=== PATIENT | male | born 1965 | race Hispanic/Latino ===

== ENCOUNTER 2020-06-13 09:26 | Emergency (ER) | payer BC, SELFPAY ==
--- NOTE | 2020-06-13 09:36 | ED.BACK ---
HPI - Back Pain/Injury General Chief Complaint: Back Pain/Injury Stated Complaint: back pain Source: patient Mode of arrival: ambulatory Limitations: no limitations History of Present Illness HPI Narrative: Patient is a 55-year-old male who presents complaining of lower back pain. Patient has a history of low back pain. He denies known injury. Reports awaking like this this a.m. He denies all other complaints. He denies loss of bowel or bladder control, numbness or tingling. He denies all other complaints. He reports pain of 8/10. He reports taking 600 mg of ibuprofen with little relief. MD elicited complaint: back pain Related Data Home Medications Medication Instructions Recorded Confirmed valsartan 80 mg PO DAILY 06/13/20 06/13/20 Allergies Allergy/AdvReac Type Severity Reaction Status Date / Time No Known Allergies Allergy Verified 06/13/20 09:32 Review of Systems Review of Systems: Narrative: CONSTITUTIONAL: Denies fever, chills, or sweats. EYES: Denies visual changes, redness, or discharge. ENT: Denies rhinorrhea, congestion, sore throat, or otalgia. CARDIOVASCULAR: Denies chest pain, palpitations, or edema. RESPIRATORY: Denies cough or dyspnea. GASTROINTESTINAL: Denies abdominal pain, nausea, vomiting, or diarrhea. GENITOURINARY: Denies dysuria or hematuria. SKIN: Denies rash or itching. MUSCULOSKELETAL: Reports low back pain that radiates to right leg NEUROLOGIC: Denies headache, numbness, dizziness, or weakness. PSYCHIATRIC: Denies anxiety or depression. [facility] Past Medical History Medical History (Updated 06/13/20 @ 09:49 by SURESH Salguero) High cholesterol Social History Social History (Updated 06/13/20 @ 09:41 by SURESH Salguero) Smoking status: Never smoker Alcohol intake: never Substance use: never Living arrangements: with family Occupation/Education: occupation Exam Narrative: Exam Narrative: GENERAL: Well-appearing, well-nourished, and in no acute distress. HEAD: Normocephalic, atraumatic. ENT: Mucous membranes pink and moist. CHEST: No respiratory distress. EXTREMITIES: Normal range of motion. No edema. SKIN: Warm, dry, no rash. NEURO: No focal deficits. Alert and oriented x3. Gait steady. PSYCH: Normal affect. No signs of depression or anxiety. MDM - Back Pain/Injury MDM Narrative Medical decision making narrative: Patient likely has lumbar radiculopathy as well as sciatica. Patient has a history in the past. Patient to be given Medrol Dosepak, Flexeril and ibuprofen upon discharge. Patient reports his PCP prescribes same. Patient is stable for discharge to home with outpatient follow-up as directed. Differential Diagnosis Differential diagnosis: Likely lumbar radiculopathy, sciatica, strain of lumbar region and discitis Critical Care Time Critical Care Time Critical Care Time: No Discharge Plan Discharge Clinical Impression: Lumbar radiculopathy Sciatica Qualifiers: Laterality: right Qualified Code(s): M54.31 - Sciatica, right side Patient Disposition: Home, Self-Care Condition: Stable Instructions: Antibiotic Form Prescriptions: New methylprednisolone [Medrol (Jaguar)] 4 mg tablets,dose pack See Rx Instructions .ROUTE .COMPLEX Qty: 21 RF: 0 cyclobenzaprine 10 mg tablet 10 mg PO TID PRN (Reason: muscle spasm) Qty: 20 RF: 0 ibuprofen 800 mg tablet 800 mg PO TID PRN (Reason: pain) Qty: 20 RF: 0 No Action valsartan 80 mg tablet 80 mg PO DAILY RF: 0 Follow-up/Referrals: Balwinder,Abdoulaye Warner PA-C [Primary Care Provider] - Time of Disposition: 09:51
[2020-06-13 09:39] VITALS: BP 168/94; PULSE 75; RESP 19; TEMP 36.8; O2SAT 99
== END 2020-06-13 09:55 | disposition home or self-care (01) ==
PROVIDERS: Emergency Provider Nurse Practitioner; PCP Physician Assistant
DX: M54.16 Radiculopathy, lumbar region (principal); M54.31 Sciatica, right side; E78.00 Pure hypercholesterolemia, unspecified
CPT/HCPCS: 99213; G0463

== ENCOUNTER 2022-01-11 19:45 | Observation (INO) | payer BC, SELFPAY ==
[2022-01-11] VITALS (21 sets, daily range): BP systolic 102–153; BP diastolic 81–106; PULSE 74–214; RESP 12–22; TEMP 36.4; O2SAT 97–100
--- NOTE | ~2022-01-11 | XR_ITS ---
EXAMINATION: XR chest 1V portable Exam Date/Time: 01/11/2022 21:05 CDT HISTORY: chest pain, HIGH PULSE RATE, NO LUNG HX, NO CARDIAC HX Comparison: 03/28/2011. RESULT: Lines, tubes, and devices: None. Lungs and pleura: Slightly decreased volumes with crowding. No focal consolidation or overt pulmonar y edema. Cardiomediastinal silhouette: Stable cardiomediastinal silhouette. Other: No acute osseous or upper abdominal finding. IMPRESSION: No acute cardiopulmonary process. Reviewed, dictated and finalized at location K.
--- NOTE | 2022-01-11 20:18 | ECG_ITS ---
Measurements Intervals [place] Rate: 212 P: SC: 0 QRS: -55 QRSD: 282 T: 0 QT: 308 QTc: 579 Interpretive Statements Wide complex tachycardia, probably ventricular tachycardia NO PREVIOUS ECG AVAILABLE FOR COMPARISON Electronically Signed On 01-12-2022 12:39:32 CDT by Crissy Newell M.D.
[2022-01-11] MEDS: ASPIRIN 81 MG CHEWABLE TABLET 324 MG PO (20:45)
[2022-01-11] MEDS: AMIODARONE 150 MG/D5W 100 ML 150 MG/100 ML BAG 600 MG IV CONT (20:46)
--- NOTE | 2022-01-11 20:48 | ED.GENADULT ---
HPI - General Adult General Chief complaint: Chest Pain Stated complaint: chest pain Time Seen by Provider: 01/11/22 20:34 History of Present Illness HPI narrative: 56-year-old male presenting to the emergency department for evaluation of rapid heart rate. Patient states at about 630 he had onset some chest pressure, rapid heart rate and did have some heartburn . He states is states that he has no current chest pain. States the chest pressure is resolved. Patient does not feel he has a rapid heart rate at this time. Patient's only complaint is that he feels tired. Upon arrival to triage patient's heart rate was 214 with a wide-complex tachycardia. Patient denies any prior cardiac history. Patient does have history of high cholesterol and does take valsartan. Patient states he has no prior history of NM but did have a stress test a bunch years ago . Patient states that he does have intermittent periods where he feels his heart is racing but states that it usually resolves on its own after short period of time. Patient has never been diagnosed with any underlying arrhythmias. Related Data Home Medications Medication Instructions Recorded Confirmed valsartan 80 mg tablet 80 mg PO DAILY 06/13/20 01/12/22 aspirin 81 mg chewable tablet 81 mg PO DAILY 01/12/22 01/12/22 dexlansoprazole 60 mg 1 cap PO DAILY 01/12/22 01/12/22 capsule,biphase delayed release (Dexilant) famotidine 40 mg tablet 1 tablet PO DAILY 01/12/22 01/12/22 Allergies Allergy/AdvReac Type Severity Reaction Status Date / Time No Known Allergies Allergy Verified 06/13/20 09:32 Review of Systems Review of Systems: CONSTITUTIONAL: See HPI EYES: Denies visual changes, redness, or discharge. ENT: Denies rhinorrhea, congestion, sore throat, or otalgia. CARDIOVASCULAR: See HPI RESPIRATORY: Denies cough or dyspnea. GASTROINTESTINAL: Denies abdominal pain, nausea, vomiting, or diarrhea. GENITOURINARY: Denies dysuria or hematuria. SKIN: Denies rash or itching. MUSCULOSKELETAL: Denies back pain, joint pain, or myalgia. NEUROLOGIC: Denies headache, numbness, or weakness. [facility] Past Medical History Medical History (Updated 01/12/22 @ 01:20 by Hannah Vasques APRN) High cholesterol Hypertension Family History Family History (Updated 01/12/22 @ 05:04 by Sofya Barker RN) Sibling Diabetes mellitus Lupus Heart disease Social History Social History (Updated 06/13/20 @ 09:41 by Bing Elizabeth, [facility]) Smoking status: Never smoker Alcohol intake: current Drinks per week: 2 Substance use: never Spiritual care concerns: No Exam Narrative: APPEARANCE: Well appearing, no pain, no distress, well-nourished. HEAD: normocephalic, atraumatic. EYES: PERRLA/EOMI, conjunctivae clear. NOSE: Normal no drainage NECK: Supple. No adenopathy, no masses. RESPIRATORY: Airway patent, respirations nonlabored. Clear to auscultation bilaterally, no rales, rhonchi, wheezing. CARDIOVASCULAR: Wide-complex tachycardia, chest pressure ABDOMINAL: Soft, nontender, nondistended, normal bowel sounds MUSCULOSKELETAL: Moves all extremities. Strength/ROM intact, No edema, No calf tenderness. NEURO: Alert. Cranial nerves II through XII intact. Grossly intact SKIN: Warm, dry. Normal Color Course Course Emergency Course: Patient has a wide-complex tachycardia with a heart rate of approximately 214. Patient's blood pressure is stable 130/83. Patient is alert and oriented. Starting amiodarone. On patient's second dose of amiodarone patient did convert back to normal sinus rhythm. Patient denies any complaints at this time. Patient states he was having some mild chest pressure but states the chest pressure has resolved. Repeat EKG shows normal sinus rhythm with no ST changes. Case was discussed with cardiology. Cardiology recommended starting the patient on dose of metoprolol. Patient was also treated with Lovenox. Case was discussed with th
[2022-01-11] MEDS: SODIUM CHLORIDE 0.9% IV 1,000 ML 999 ML IV CONT (20:49)
[2022-01-11] MEDS: AMIODARONE 360 MG/D5W 200 ML 360 MG/200 ML BAG 33.33 MG IV CONT (20:55)
[2022-01-11 21:02] LABS: Basophils Percent Auto 0.5 % (0.2-1.2); Eosinophils Absolute Auto 0.2 K/mm3 (0-0.3); Eosinophils Percent Auto 2.8 % (0-4.4); Hemoglobin 15.5 g/dL (14.0-18.0); Immature Granulocyte Absolute 0.03 K/mm3 (0.00-0.031); Immature Granulocyte Percent A 0.4 % (0-0.5); Lymphocytes Absolute Auto 3.47 K/mm3 (0.9-3.2); Lymphocytes Percent Auto 41.6 % (18.3-44.2); Mean Corpuscular Hemoglobin 31.5 pg (26-34); Mean Corpuscular Volume 95.5 fl (80-100); Mean Platelet Volume 9.4 fl (7.4-10.4); Monocytes Absolute Auto 0.9 K/mm3 (0.1-0.6); Monocytes Percent Auto 10.2 % (2.6-8.5); Neutrophils Absolute Auto 3.7 K/mm3 (1.3-6.7); Neutrophils Percent Auto 44.5 % (45.5-73.1); Platelet Count Result 195 k/mm3 (150-375); Red Blood Count 4.92 M/mm3 (4.6-6.20); Red Cell Distribution Width 13.5 % (11.5-14.5); White Blood Count 8.4 K/mm3 (4.5-10.0)
[2022-01-11 21:18] LABS: Alanine Aminotransferase 69 U/L (6-50); Albumin Level 4.8 g/dL (3.5-5.1); Alkaline Phosphatase 132 U/L (38-126); Anion Gap 9 mmol/L (8-16); Aspartate Amino Transferase 58 U/L (17-59); Bilirubin,Total 0.5 mg/dL (0.2-1.3); Blood Urea Nitrogen 19 mg/dL (9-20); Calcium 9.7 mg/dL (8.4-10.2); Carbon Dioxide 27 mmol/L (22-30); Chloride 107 mmol/L (98-107); Estimated CRCL calculation 110 ml/min; Estimated Glomerular Filt Rate > 60; Glucose 122 mg/dL (65-110); INR 1.1; Lipase 79 U/L (23-300); Partial Thromboplastin Time 31.2 SECONDS (22.3-36.8); Potassium 3.5 mmol/L (3.4-5.0); Prothrombin Time 13.3 Seconds (11.1-14.7); Sodium 143 mmol/L (137-145)
[2022-01-11 21:33] LABS: Troponin I 0.063 ng/mL (0.000-0.034)
--- NOTE | 2022-01-11 21:43 | ECG_ITS ---
Measurements Intervals [place] Rate: 96 P: 30 PA: 178 QRS: -9 QRSD: 108 T: 27 QT: 353 QTc: 447 Interpretive Statements SINUS RHYTHM COMPARED TO ECG 01/11/2022 20:29:10 SINUS RHYTHM HAS BEEN RESTORED Electronically Signed On 01-12-2022 12:40:07 CDT by Crissy Newell M.D.
[2022-01-11 22:08] LABS: SARS-CoV-2 RNA PCR Negative
[2022-01-11] MEDS: ENOXAPARIN 120 MG/0.8 ML SYRINGE 109 MG SUB-Q (22:09)
[2022-01-11] MEDS: SODIUM CHLORIDE 0.9% IV 1,000 ML 125 ML IV CONT (22:12)
[2022-01-11 22:49] LABS: Amphetamine Screen Urine Negative (Negative); Barbiturate Screen Urine Negative (Negative); Benzodiazepines Screen Urine Negative (Negative); Cannabinoid Screen Urine Negative (Negative); Cocaine Screen Urine Negative (Negative); Methadone Screen Urine Negative (Negative); Opiate Screen Urine Negative (Negative); Phencyclidine Screen Urine Negative (Negative)
[2022-01-12] VITALS (43 sets, daily range): BP systolic 118–174; BP diastolic 71–90; PULSE 54–79; RESP 11–22; TEMP 36.2–36.7; O2SAT 93–100; BMI 33.3
--- NOTE | 2022-01-12 | ECHO_ITS ---
Patient Info Name: Solo Groves Age: 56 years : 1965 Gender: Male Ht: 71 in Wt: 239 lbs BSA: 2.36 m2 HR: 60 bpm BP: 174 / 89 mmHg Heart Rhythm: Sinus Rhythm Technical Quality: Fair Exam Date: 01/12/2022 11:30 AM Exam Location: [facility]monary Exam Room: 203 Patient Status: Inpatient Admit Date: 01/11/2022 Staff Ordering Physician: Hannah Vasques APRN Engine Designer: Laquita Robin RDCS Attending Provider: Eugenia Ivory MD Referring Physician: Caprice CARL; Exam Type: CA echo dop color flow w con Study Info Indications - wide comlplex tachy chest discomfort Complete two-dimensional, color flow and Doppler transthoracic echocardiogram is performed with contrast to opacify the left ventricle and to improve the deliniation of the left ventricle endocardial borders. Contrast/Agitated Saline Contrast/Ag. Saline: Definity Amount: 2.00 ml Administered By: Laquita Robin [facility] Existing IV Access: Yes IV Access Condition: patent with no signs of infiltration Summary 1. Normal left ventricular size and thickness. Left ventricular function of the lower limit of normal, measured ejection fraction 59%, visually 50-55%. Diastolic dysfunction is present. No segmental wall motion abnormalities. 2. Left atrial chamber dimension is mildly enlarged. 3. No pulmonary hypertension, estimated pulmonary arterial systolic pressure is 32 mmHg. 4. No significant valve disease. 5. Normal sinus rhythm. Left Ventricle Left ventricular chamber dimension is normal. Left ventricular systolic function is hyperdynamic, estimated at 50-55%. There is no increased left ventricular wall thickness. Left ventricular septal wall motion is normal. The left ventricular diastolic function is grade II diastolic dysfunction. Right Ventricle Right ventricular chamber dimension is normal. Right ventricular systolic function is normal. Left Atria Left atrial chamber dimension is mildly enlarged. Right Atria Right atrial chamber dimension is normal. Aortic Valve The aortic valve is trileaflet. There is no aortic valve sclerosis. There is no aortic valve stenosis. There is no aortic valve regurgitation. Pulmonic Valve The pulmonic valve is normal. There is no pulmonic valve stenosis. There is no pulmonic regurgitation. Mitral Valve The mitral valve has normal leaflets. There is no mitral valve stenosis. There is no mitral valve regurgitation. Tricuspid Valve The tricuspid valve leaflets are normal. There is no significant tricuspid valve stenosis. There is trace tricuspid valve regurgitation. No pulmonary hypertension, estimated pulmonary arterial systolic pressure is 32 mmHg. Pericardium/Pleural The pericardium appears normal. There is no pericardial effusion. Inferior Vena Cava Normal inferior vena cava with >50% collapse upon inspiration consistent with Empty right atrial pressure, 10 mmHg. Aorta The aortic root size at the sinus of Valsalva is normal. The prox ascending aorta size is normal. Left Ventricular Outflow Tract Name Value Normal LVOT 2D LVOT Diameter 2.10 cm LVOT Dopple
[2022-01-12 01:03] LABS: Troponin I 0.374 ng/mL (0.000-0.034)
--- NOTE | 2022-01-12 01:07 | PM.IMHP ---
H&P: HPI History of Present Illness Date/Time: 01/12/22 01:07 Chief Complaint: Chest pain Narrative: Mr. Groves is a 56-year-old gentleman who presented emergency room with complaints of chest discomfort. Patient states that at after eating dinner at 06:00 o'clock this evening he began feeling like he had heartburn around 630. Patient states the heartburn felt like a pressure across his anterior chest that went to his left arm. Patient states he has experienced this previously and if he belches the pain will go away. Patient states that he belched multiple times without any relief and took Tums and he continued to have this chest discomfort. Patient denied any palpitations, lightheadedness, dizziness, shortness of breath, nausea, vomiting, ceasing copy or near syncopal episodes. Patient states that he did feel mildly diaphoretic with this chest discomfort. Patient denies any cardiac history of coronary artery disease or stent placement. Patient states that he has generally been healthy but does have a history of hypertension for which he takes valsartan and he states his blood pressures have been well controlled. Patient states he also has a history of GERD and he does take Pepcid which is normally very effective. Upon evaluation in emergency room patient was noted to have a wide complex tachycardia and was given an IV amiodarone bolus followed by drip. Patient subsequently converted to a normal sinus rhythm and is feeling significantly improved. Patient states that he has a known history of hypertension and he takes medication without any difficulty. Patient states he also has a history of GERD for which he takes Pepcid and this is typically very effective. Review of Systems Review of Systems: A 12 point review of systems was completed patient all pertinent positive and negative per HPI the remainder are unremarkable. [facility] Past Medical History Medical History (Updated 01/12/22 @ 01:20 by Hannah Vasques, [facility]) High cholesterol Hypertension Social History Social History (Updated 06/13/20 @ 09:41 by Bing Elizabeth, [employer]) Smoking status: Never smoker Alcohol intake: never Substance use: never Meds Home Medications and Allergies Home Medications Medication Instructions Recorded Confirmed Type cyclobenzaprine 10 mg tablet 10 mg PO TID PRN muscle spasm #20 06/13/20 Rx tabs ibuprofen 800 mg tablet 800 mg PO TID PRN pain #20 tabs 06/13/20 Rx methylprednisolone 4 mg tablets in See Rx Instructions PO .COMPLEX 06/13/20 Rx a dose pack ([facility] (Jaguar)) #21 ea valsartan 80 mg tablet 80 mg PO DAILY 06/13/20 06/13/20 History Allergies Allergy/AdvReac Type Severity Reaction Status Date / Time No Known Allergies Allergy Verified 06/13/20 09:32 Vital Signs Vital Signs - 24 hr 01/11/22 20:21 01/11/22 20:46 01/11/22 20:51 Temperature 36.4 C Pulse Rate 74 214 H 201 H Respiratory Rate 18 22 H Blood Pressure 130/83 125/106 H 108/81 Pulse Oximetry 100 100 Oxygen Delivery Room Air 01/11/22 20:55 01/11/22 20:58 01/11/22 20:58 Temperature Pulse Rate 191 H 191 H 190 H Respiratory Rate Blood Pressure 102/83 102/83 Pulse Oximetry Oxygen Delivery 01/11/22 20:58 01/11/22 21:03 01/11/22 21:44 Temperature Pulse Rate 105 H 99 Respiratory Rate 20 17 Blood Pressure 102/83 Pulse Oximetry 99 100 100 Oxygen Delivery Room Air 01/11/22 21:45 01/11/22 21:46 01/11/22 22:00 Temperature Pulse Rate 98 101 H 93 Respiratory Rate 16 15 15 Blood Pressure 126/86 Pulse Oximetry 100 100 98 Oxygen Delivery 01/11/22 22:01 01/11/22 22:15 01/11/22 22:17 Temperature Pulse Rate 93 100 97 Respiratory Rate 16 21 H 17 Blood Pressure 143/96 H 136/92 H Pulse Oximetry 98 99 Oxygen Delivery 01/11/22 22:45 01/11/22 22:46 01/11/22 23:00 Temperature Pulse Rate 78 86 78 Respiratory Rate 12 16 14 Blood Pressure 122/82 Pulse Oximetry 99 98 98 Oxygen
--- NOTE | 2022-01-12 02:07 | PC.NURSE ---
This nurse spoke to MD Noel and stated she would place an order for a new Amiodarone dosage for the pt once the pt's current Amiodarone drop was completed.
[2022-01-12] MEDS: AMIODARONE 360 MG/D5W 200 ML 360 MG/200 ML BAG 33.33 MG IV CONT (02:55)
--- NOTE | 2022-01-12 04:11 | ADMGEN ---
This patient, Solo Groves, was admitted to IMU Room 203-01. Patient/family oriented to hospital policies and general routines including ID bracelet, bed and alarms, visiting hours, pain management, procedures, bathroom and other care routines, personal items, smoking policy, room service/diet, and visiting hours. Information on how to activate the Rapid Response Team has been discussed. Patient/Family are encouraged to report perceived risks to care and to ask questions if they do not understand what they are told or what they should do.
[2022-01-12 05:04] LABS: Troponin I 0.752 ng/mL (0.000-0.034)
--- NOTE | 2022-01-12 05:32 | PCRCNOTE ---
Pt does not use CPAP at home and refuses one here
[2022-01-12] MEDS: SODIUM CHLORIDE 0.9% IV 1,000 ML 125 ML IV CONT ×2 (08:31→16:15)
--- NOTE | 2022-01-12 09:58 | PM.CNCAR ---
Assessment and Plan Assessment and plan (1) Wide-complex tachycardia: Code(s): I47.2 - Ventricular tachycardia Status: Acute Assessment and Plan: Patient presents with chest discomfort/heartburn and a wide complex tachycardia. Probably a type of ventricular tachycardia. Evaluate for cardiomyopathy; echo ordered. Evaluate for underlying coronary disease; cardiac catheterization today Continue amiodarone and metoprolol for now Likely will need an electrophysiology evaluation (2) Elevated troponin: Code(s): R77.8 - Other specified abnormalities of plasma proteins Status: Acute Assessment and Plan: Elevated troponins noted, no ischemic changes seen on follow-up EKG. Chest pain likely 2nd V Tach, but possibly started as an ischemic event May ischemic myocardial injury due to the ventricular tachycardia but will need to rule out underlying CAD. Does have risk factors for CAD with hypertension and hyperlipidemia (3) Hypertension: Code(s): I10 - Essential (primary) hypertension Status: Acute Assessment and Plan: Takes valsartan as an outpatient Add metoprolol (4) Hypercholesteremia: Code(s): E78.00 - Pure hypercholesterolemia, unspecified Status: Acute Assessment and Plan: Not on a statin present History of Present Illness History of Present Illness Consult date/time: 01/12/22 09:58 Reason For Visit: wide complex tachycardia Narrative: Solo Groves is a 56 y.o. male whom I was asked to see at the request of Dr. Richard Pisano for my advice and opinion regarding his white complex tachycardia, in consultation. The patient has a history of hypertension and hypercholesterolemia but no history of heart disease, palpitations, dizziness or syncope He has some heartburn, sometimes radiating to the left arm, and frequent burping at times related to meals and also psychological stress. 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 Last night after his dinner he had more intense heartburn, associated with feeling weak and sweaty. He tried some Tums with no improvement. He did not feel any palpitations or SOB. He is not dizzy or presyncopal. His son brought him to the emergency room and he was found be in a wide complex tachycardia, which appears to be a ventricular tachycardia, rate 212. He converted to sinus rhythm on amiodarone and has been feeling well since then. His troponins have gone up to 0.7. Brother has some type of heart disease. Review of Systems Constitutional: Constitutional: Denies fever(s) Cardiovascular: Cardiovascular: Reports chest pain, Denies pedal edema, Denies lightheadedness, Denies palpitations and Denies dyspnea Respiratory: Respiratory: Denies chest congestion and Denies dyspnea Gastrointestinal: Gastrointestinal: Denies abdominal pain, Denies hematochezia, Reports heartburn and Denies hematemesis Musculoskeletal: Musculoskeletal: Reports no additional musculoskeletal complaints Integumentary/Breasts: Skin/Breast: Reports system reviewed and no additional complaints, except as docu Neurologic: Reports system reviewed and no additional complaints, except as documented, Denies behavioral changes and Denies confusion Psychiatric: Psychiatric: Denies behavioral changes and Denies confusion PMFSH Past Medical History Medical History High cholesterol Hypertension Family History Family History Sibling Diabetes mellitus Lupus Heart disease Father Diabetes mellitus Parkinsons disease Dementia Mother Dementia Alzheimer's dz Social History Social History ([place]
[2022-01-12] MEDS: ASPIRIN 81 MG CHEWABLE TABLET PO (09:59)
[2022-01-12] MEDS: METOPROLOL TARTRATE 25 MG TABLET PO ×2 (10:39→20:31)
--- NOTE | 2022-01-12 10:55 | PM.IMPN ---
Progress Note: A&P Assessment and Plan (1) Wide-complex tachycardia: Code(s): I47.2 - Ventricular tachycardia Status: Acute Assessment and Plan: Patient presents with complaints of chest pressure radiating to the left arm. He states this is very similar to times he has GERD symptoms with the only difference being that the symptoms did not resolve with belching. In the emergency room, he was noted to have V-tach and received an amiodarone bolus followed by an amiodarone drip. Patient subsequently converted to normal sinus rhythm with no significant ST changes. Troponin climbed to 0.75. Cardiology consulted. Continue amiodarone drip. Plan is for heart catheterization later today. Echocardiogram has been ordered. Magnesium 2.0. Potassium was 3.5 yesterday and was not replaced Will check BMP today. (2) Elevated troponin: Code(s): R77.8 - Other specified abnormalities of plasma proteins Status: Acute Assessment and Plan: Troponin elevated to 0.75. Not unexpected given the V-tach with rate this is 212. Workup as mentioned above. Continue aspirin and Lopressor. (3) Hypertension: Code(s): I10 - Essential (primary) hypertension Status: Acute Assessment and Plan: Blood pressure well controlled overnight. Blood pressure was elevated this morning prior to the metoprolol. Will continue to monitor for now. (4) GERD (gastroesophageal reflux disease): Code(s): K21.9 - Gastro-esophageal reflux disease without esophagitis Status: Acute Assessment and Plan: Chronic and stable. Will resume his famotidine and PPI. Plan DVT prophylaxis: SCDs Code status: Full Subjective Date/time seen: 01/12/22 10:55 Interval history: 56yo male with HTN here for chest pain and found to have VTach. Assuming care. Chart reviewed. Patient states he has longstanding symptoms of acid reflux that he describes as chest tightness sometimes radiating to left arm. Symptoms usually resolved with belching. He presented this time because the belching did not improve his symptoms. He feels well today. No history of coronary disease. No recent coronary workup including echo or stress test. No chest pain. He takes Pepcid and proton pump inhibitor daily. Exam Narrative: AF 97.4 152/86 67 16 100% ra Gen - NARD Chest - CTA bilaterally, nml RR CV - RRR S1/S2. Tele showing no significant dysrhythmias Abd - Soft, NT/ND, Positive BS Ext - No pedal edema Psych - Nml mood and affect Skin - Warm and dry Objective Data Vital Signs Vital Signs: Vital Signs - 24 hr 01/11/22 20:21 01/11/22 20:46 01/11/22 20:51 Temperature 97.6 F Pulse Rate 74 214 H 201 H Respiratory Rate 18 22 H Blood Pressure 130/83 125/106 H 108/81 Pulse Oximetry 100 100 Oxygen Delivery Room Air 01/11/22 20:55 01/11/22 20:58 01/11/22 20:58 Temperature Pulse Rate 191 H 191 H 190 H Respiratory Rate Blood Pressure 102/83 102/83 Pulse Oximetry Oxygen Delivery 01/11/22 20:58 01/11/22 21:03 01/11/22 21:44 Temperature Pulse Rate 105 H 99 Respiratory Rate 20 17 Blood Pressure 102/83 Pulse Oximetry 99 100 100 Oxygen Delivery Room Air 01/11/22 21:45 01/11/22 21:46 01/11/22 22:00 Temperature Pulse Rate 98 101 H 93 Respiratory Rate 16 15 15 Blood Pressure 126/86 Pulse Oximetry 100 100 98 Oxygen Delivery 01/11/22 22:01 01/11/22 22:15 01/11/22 22:17 Temperature Pulse Rate 93 100 97 Respiratory Rate 16 21 H 17 Blood Pressure 143/96 H 136/92 H Pulse Oximetry 98 99 Oxygen Delivery 01/11/22 22:45 01/11/22 22:46 01/11/22 23:00 Temperature Pulse Rate 78 86 78 Respiratory Rate 12 16 14 Blood Pressure 122/82 Pulse Oximetry 99 98 98 Oxygen Delivery 01/11/22 23:02 01/11/22 23:22 01/11/22 23:30 Temperature Pulse Rate 77 79 81 Respiratory Rate 14 20 17 Blood Pressure 153/99 H Pulse Oximetry 97 98 98 Oxy
[2022-01-12] MEDS: AMIODARONE 360 MG/D5W 200 ML 360 MG/200 ML BAG 16.67 MG IV CONT (11:16)
[2022-01-12 11:23] LABS: Anion Gap 5 mmol/L (8-16); Blood Urea Nitrogen 14 mg/dL (9-20); Calcium 8.5 mg/dL (8.4-10.2); Carbon Dioxide 24 mmol/L (22-30); Chloride 110 mmol/L (98-107); Estimated CRCL calculation 143 ml/min; Estimated Glomerular Filt Rate > 60; Glucose 114 mg/dL (65-110); Potassium 3.7 mmol/L (3.4-5.0); Sodium 139 mmol/L (137-145)
[2022-01-12] MEDS: PERFLUTREN LIPID MICROSPHERES 1.5 ML VIAL DILUTED TO 10 ML TOTAL VOLUME IV PUSH (11:47)
--- NOTE | 2022-01-12 11:48 | IVDEFINITY ---
Prior to administration of IV Definity the patient was educated on the risks and benefits of the imaging enhancing agent including potential adverse side effects. The patient verbalized understanding. Allergies were verified. No exclusion criteria were identified and at least one of the following inclusion criteria were met: 1) physician request, 2) patient technically difficult to image (per the [place] [employer] guidelines of two or more segments not discernable within the apical view), or 3) questionable left ventricular function. ?
--- NOTE | 2022-01-12 14:16 | WPDHPUPDATE1 ---
History and Physical Update Update Date/Time: 01/12/22 14:16 History and Physical has been reviewed, including an updated exam of the patient. There are NO changes in the patient's condition. Reviewed possible risks and complications with patient including breathing problems, bleeding problems, blood vessel problems, unanticipated surgery, allergic reactions, kidney problems, CVA, VT, and among others. Discussed possibility of stenting and possible need for DAPT. Discussed the possibility that if DAPT is interrupted stent thrombosis can occur resulting in heart attack and . Patient understands risks and desires to proceed. Risks, benefits, and alternatives have been discussed and questions answered. Patient agrees to proceed with procedure.
--- NOTE | 2022-01-12 14:17 | WPDMODSED ---
Moderate Sedation Note-Pt Data Patient Data Diagnosis: Wide complex tachycardia, probably atrial fibrillation, elevated troponins, and chest discomfort, rule out CAD. Present Complaint: Patient admitted with wide complex tachycardia and chest discomfort, converted to sinus rhythm with amiodarone. Echo shows EF 50-55%. Has elevated troponins. Procedure to be performed/Plan: Conscious sedation Left heart catheterization Possible PCI Allergies Allergy/AdvReac Type Severity Reaction Status Date / Time No Known Allergies Allergy Verified 06/13/20 09:32 Home Medications Medication Instructions Recorded Confirmed Type cyclobenzaprine 10 mg tablet 10 mg PO TID PRN muscle spasm #20 06/13/20 01/12/22 Rx tabs valsartan 80 mg tablet 80 mg PO DAILY 06/13/20 01/12/22 History aspirin 81 mg chewable tablet 81 mg PO DAILY 01/12/22 01/12/22 History dexlansoprazole 60 mg 1 cap PO DAILY 01/12/22 01/12/22 History capsule,biphase delayed release (Dexilant) famotidine 40 mg tablet 1 tablet PO DAILY 01/12/22 01/12/22 History Current Medications: Active Medications Aspirin (Aspirin 81 Mg Chewable Tablet) 81 mg PO DAILY@0800 [facility] Last Admin: 01/12/22 09:59 Dose: 81 mg Famotidine (Famotidine 20 Mg Tablet) 40 mg PO DAILY [facility] Sodium Chloride (Normal Saline Iv) 1,000 mls @ 125 mls/hr IV CONT .Q8H [facility] Last Admin: 01/12/22 08:31 Dose: 125 mls/hr Sodium Chloride (Normal Saline Iv) 500 mls @ 100 mls/hr IV CONT .Q5H [facility] Last Admin: 01/12/22 10:38 Dose: Not Given Sodium Chloride (Normal Saline Iv) 500 mls @ 100 mls/hr IV CONT .Q5H [facility] Last Admin: 01/12/22 10:38 Dose: Not Given Amiodarone HCl/Dextrose (Nexterone 360 Mg/D5w 200 Ml) 360 mg in 200 mls @ 16.667 mls/hr IV CONT .Q12H [facility] Last Admin: 01/12/22 11:16 Dose: 0.5 mg/min, 16.67 mls/hr Metoprolol Tartrate (Metoprolol Tartrate 25 Mg Tablet) 25 mg PO Q12HR [facility] Last Admin: 01/12/22 10:39 Dose: 25 mg Ondansetron HCl (Ondansetron Inj 4 Mg/2 Ml Vial) 4 mg IV PUSH Q4H PRN PRN Reason: Nausea Pantoprazole Sodium (Pantoprazole 40 Mg Tablet) 40 mg PO QAM [facility] Sedation/Anesthesia: No previous sedation/anesthesia problems (including family history). 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 Smoking status: Never smoker Alcohol intake: current Drinks per week: 2 Substance use: never Spiritual care concerns: No Mod Sed Physical Exam Physical Exam Pre Procedural Exam: Normal: Appearance, Eyes, Ears, Nose, Neck, Throat, Airway, Lungs, Heart Size, Heart Rate, Heart Rhythm, Neuro Exam, Abdomen, Extremities and Skin Hours since solid foods: 16 Hours since liquid intake: 16 Mallampati Classification: class III Internal Medicine - PN: Obj Da Vital Signs Vital Signs: Vital Signs - 24 hr 01/11/22 20:21 01/11/22 20:46 01/11/22 20:51 Temperature 97.6 F Pulse Rate 74 214 H 201 H Respiratory Rate 18 22 H Blood Pressure 130/83 125/106 H 108/81 Pulse Oximetry 100 100 Oxygen Delivery Room Air 01/11/22 20:55 01/11/22 20:58 01/11/22 20:58 Temperature Pulse Rate 191 H 191 H 190 H Respiratory Rate Blood Pressure 102/83 102/83 Pulse Oximetry Oxygen Delivery 01/11/22 20:58 01/11/22 21:03 01/11/22 21:44 Temperature Pulse Rate 105 H 99 Respiratory Rate 20 17 Blood Pressure 102/83 Pulse Oximetry 99 100 100 Oxygen Delivery Room Air 01/11/22 21:45 01/11/22 21:46 01/11/22
--- NOTE | 2022-01-12 14:59 | PM.OP ---
Procedure Note - Brief Procedure Note - Brief Date of procedure: 01/12/22 Pre-op diagnosis: wide complex tachycardia Sustained ventricular tachycardia Post-op diagnosis: Same Procedure performed: Conscious sedation Left heart catheterization Description of procedure: uneventful left heart catheterization Surgeon: Crissy Newell MD Complications: None Condition: Stable Disposition: Floor Findings: Normal coronary arteries Normal left ventricular function
--- NOTE | 2022-01-12 15:02 | W.PM.PROC2 ---
Procedure Note - Detailed Date of Procedure 01/12/22 Pre-op Diagnosis wide complex tachycardia, ventricular tachycardia Post-op Diagnosis Same Procedure Performed conscious sedation Left heart catheterization Surgeon Crissy Newell MD
--- NOTE | 2022-01-12 15:03 | WPDCARDPROC ---
Cardiac Cath Procedure Note Date of procedure:: 01/13/22 Performing physician:: Crissy Newell MD Indication:: wide complex tachycardia, ventricular tachycardia Brief clinical history:: 56-year-old male hypertension hyperlipidemia admitted with chest pressure wide complex tachycardia/ ventricular tachycardia which converted to sinus rhythm with amiodarone. Elevated troponins. Undergoing cardiac catheterization because of as suspicion of underlying CAD. Procedure Procedure performed:: Conscious sedation Left heart catheterization Selective coronary angiography Left ventriculography Angiography of the right common femoral artery Estimated blood loss:: 5 cc Procedure note:: Procedure: 1. Conscious sedation 2. Left heart catheterization 3. Selective Coronary angiography 4. Left ventriculography 5. Angiography right common femoral artery Site: Right femoral artery Catheters: 5 [place] arterial sheath, 5 [place] 4 cm right and left Neris catheters, 5 [place] pigtail catheter Conscious sedation: The patient has no known prior history of adverse affects of conscious sedation. Oropharynx was clear. The patient is deemed a good candidate for conscious sedation. Conscious sedation began at:1434 Conscious sedation ended at: 1450 Total conscious sedation time:16 min Medications:Versed 1 mg and fentanyl 50 mcg IVP The patient had continuous hemodynamic monitoring, and was also continuously monitored by: Ni Fulton RN The patient tolerated conscious sedation well. Detailed procedure: After informed consent the patient brought to the computer lab para professional and the right femoral area was prepped and draped in the usual fashion. After conscious sedation and local anesthesia the right femoral artery was punctured and cannulated with the arterial sheath. Selective Coronary angiography was performed with the coronary catheters in multiple projections. These were withdrawn. The pigtail catheter was advanced into the central circulation and left ventricle for pressure measurements and left ventriculography which was performed in the BETH projection. This was withdrawn. Later the arterial sheath was removed and hemostasis was obtained using local pressure. The patient tolerated the procedure well with no complications. Estimated blood loss was negligible. Findings:: Pressures: Post angiographic LV pressure was 130/ 18 mmHg and aorta was 140 / 80 mm Hg mmHg. Left coronary artery: The left main, Left anterior descending and circumflex vessels were widely patent and free of disease. Right coronary artery is a dominant right coronary artery was large and free of disease Left ventriculogram: Left ventriculography revealed normal left ventricular systolic function and no mitral regurgitation. EF 55-60% Conclusion:: Normal coronary arteries Normal left ventricular systolic, EF 55-60 % Assessment and Plan Assessment and plan (1) Wide-complex tachycardia: Code(s): I47.2 - Ventricular tachycardia Status: Acute Assessment and Plan: Refer to electrophysiology Continue metoprolol and amiodarone Plan I will review with the patient and refer to an paving bed maker. Additional Plan as above
[2022-01-12] MEDS: AMIODARONE HCL 200 MG TABLET 400 MG PO (17:49)
[2022-01-13] VITALS (11 sets, daily range): BP systolic 134–143; BP diastolic 78–87; PULSE 52–71; RESP 16–18; TEMP 36.1–36.6; O2SAT 96–99
--- NOTE | 2022-01-13 03:55 | PC.NURSE ---
Jovita from [facility] called IMU for pt update. No bed available at this time.
[2022-01-13 05:00] LABS: Hematocrit 39.5 % (42.0-52.0); Hemoglobin 13.1 g/dL (14.0-18.0); Mean Corpuscular HGB Conc 33.2 g/dl (32-36); Mean Corpuscular Hemoglobin 31.8 pg (26-34); Mean Corpuscular Volume 95.9 fl (80-100); Mean Platelet Volume 9.6 fl (7.4-10.4); Platelet Count Result 158 k/mm3 (150-375); Red Blood Count 4.12 M/mm3 (4.6-6.20); Red Cell Distribution Width 13.5 % (11.5-14.5); White Blood Count 5.7 K/mm3 (4.5-10.0)
[2022-01-13 05:12] LABS: Anion Gap 5 mmol/L (8-16); Blood Urea Nitrogen 11 mg/dL (9-20); Calcium 8.2 mg/dL (8.4-10.2); Carbon Dioxide 25 mmol/L (22-30); Chloride 108 mmol/L (98-107); Estimated CRCL calculation 143 ml/min; Estimated Glomerular Filt Rate > 60; Glucose 95 mg/dL (65-110); Magnesium 1.9 mg/dL (1.6-2.3); Potassium 3.5 mmol/L (3.4-5.0); Sodium 138 mmol/L (137-145)
[2022-01-13] MEDS: ACETAMINOPHEN 325 MG TABLET 650 MG PO (08:28)
[2022-01-13] MEDS: POTASSIUM CHLORIDE 20 MEQ TABLET 40 MEQ PO (08:28)
[2022-01-13] MEDS: MAGNESIUM SULF 2 GM/WATER 50ML 2 GM/50 ML BAG IVPB (08:29)
[2022-01-13] MEDS: AMIODARONE HCL 200 MG TABLET 400 MG PO (08:30)
[2022-01-13] MEDS: PANTOPRAZOLE 40 MG TABLET PO (08:30)
[2022-01-13] MEDS: METOPROLOL TARTRATE 25 MG TABLET PO (08:30)
[2022-01-13] MEDS: FAMOTIDINE 20 MG TABLET 40 MG PO (08:31)
[2022-01-13] MEDS: ASPIRIN 81 MG CHEWABLE TABLET PO (08:34)
--- NOTE | 2022-01-13 12:11 | PM.IMPN ---
Progress Note: A&P Assessment and Plan (1) Wide-complex tachycardia: Code(s): I47.2 - Ventricular tachycardia Status: Acute Assessment and Plan: Patient presents with complaints of chest pressure radiating to the left arm. He states this is very similar to times he has GERD symptoms with the only difference being that the symptoms did not resolve with belching. In the emergency room, he was noted to have V-tach and received an amiodarone bolus followed by an amiodarone drip. Patient subsequently converted to normal sinus rhythm with no significant ST changes. Troponin climbed to 0.75. Cardiology consulted. LHC showing no CAD. Echo showing EF 50-55% and Grade II diastolic dysfunction. He was changed to oral amiodarone. Magnesium 1.9. Potassium was 3.5 today so will replace again. (2) Elevated troponin: Code(s): R77.8 - Other specified abnormalities of plasma proteins Status: Acute Assessment and Plan: Troponin elevated to 0.75. Not unexpected given the V-tach with rate this is 212. Workup as mentioned above. Continue aspirin and Lopressor. (3) Hypertension: Code(s): I10 - Essential (primary) hypertension Status: Acute Assessment and Plan: Blood pressure remains well controlled. Will continue to monitor for now. (4) GERD (gastroesophageal reflux disease): Code(s): K21.9 - Gastro-esophageal reflux disease without esophagitis Status: Acute Assessment and Plan: Chronic and stable. Continue famotidine and PPI. Plan DVT prophylaxis: SCDs Code status: Full Subjective Date/time seen: 01/13/22 12:11 Interval history: 56yo male with HTN here for chest pain and found to have VTach. No problems overnight. Complains of right shoulder pain but this is chronic. Denies any chest pain, shortness of breath, lightheadedness or cough. Exam Narrative: AF 97.3 142/87 59 18 96% ra Gen - NARD Chest - CTA bilaterally, nml RR CV - RRR S1/S2. Tele showing no significant dysrhythmias Abd - Soft, NT/ND, Positive BS Ext - No pedal edema Psych - Nml mood and affect Skin - Warm and dry Objective Data Vital Signs Vital Signs: Vital Signs - 24 hr 01/12/22 15:15 01/12/22 15:30 01/12/22 15:45 Temperature Pulse Rate 56 L 56 L 55 L Respiratory Rate 14 16 11 L Blood Pressure 132/82 133/85 118/74 Pulse Oximetry 93 98 96 Oxygen Delivery Room Air Room Air Room Air 01/12/22 16:20 01/12/22 16:15 01/12/22 17:49 Temperature 97.1 F L Pulse Rate 57 L 58 L Respiratory Rate 16 Blood Pressure 139/90 Pulse Oximetry 99 Oxygen Delivery Room Air 01/12/22 14:00 01/12/22 18:00 01/12/22 19:51 Temperature 97.7 F Pulse Rate 66 59 L 61 Respiratory Rate 20 Blood Pressure 145/71 H Pulse Oximetry 99 Oxygen Delivery 01/12/22 20:01 01/12/22 20:31 01/12/22 20:00 Temperature Pulse Rate 68 57 L 60 Respiratory Rate Blood Pressure Pulse Oximetry 96 Oxygen Delivery Room Air 01/12/22 22:00 01/12/22 20:00 01/12/22 23:07 Temperature 98.0 F Pulse Rate 54 L 56 L Respiratory Rate 20 Blood Pressure 137/89 Pulse Oximetry 97 Oxygen Delivery Room Air 01/13/22 00:00 01/13/22 00:00 01/13/22 02:00 Temperature Pulse Rate 58 L 52 L Respiratory Rate Blood Pressure Pulse Oximetry Oxygen Delivery Room Air 01/13/22 04:00 01/13/22 04:00 01/13/22 04:00 Temperature 97.8 F Pulse Rate 56 L 57 L Respiratory Rate 18 Blood Pressure 134/78 Pulse Oximetry 97 Oxygen Delivery Room Air 01/13/22 06:00 01/13/22 08:30 01/13/22 08:30 Temperature Pulse Rate 56 L 59 L 59 L Respiratory Rate Blood Pressure Pulse Oximetry Oxygen Delivery 01/13/22 08:00 01/13/22 08:00 01/13/22 10:00 Temperature 97.3 F L Pulse Rate 57 L 59 L Respiratory Rate 18 Blood Pressure 142/87 H Pulse Oximetry 96 Oxygen Delivery Room Air 01/13/22 08:00 01/13/22
--- NOTE | 2022-01-13 15:35 | PM.PNCARD ---
Progress Note: A&P Assessment and Plan (1) Wide-complex tachycardia: Code(s): I47.2 - Ventricular tachycardia Status: Acute Assessment and Plan: Wide complex tachycardia which appears to be ventricular tachycardia, hemodynamically stable on admission. Patient noted intense chest pressure and heartburn but no palpitations. Has had heartburn before but this was worse. No evidence of CAD or dilated cardiomyopathy No recurrence on p.o. metoprolol and amiodarone Transferring to [facility] for their expert opinion (2) Elevated troponin: Code(s): R77.8 - Other specified abnormalities of plasma proteins Status: Acute Assessment and Plan: Elevated troponin and chest discomfort which appears to be due to the tachycardia. (3) Status post cardiac catheterization: Code(s): Z98.890 - Other specified postprocedural states Status: Acute Assessment and Plan: Reviewed post cath instructions with the patient. Okay to return to work on MondayJanuary 19. (4) Hypertension: Code(s): I10 - Essential (primary) hypertension Status: Acute Assessment and Plan: Controlled reasonably well, no longer on valsartan (5) Hypercholesteremia: Code(s): E78.00 - Pure hypercholesterolemia, unspecified Status: Acute (6) GERD (gastroesophageal reflux disease): Code(s): K21.9 - Gastro-esophageal reflux disease without esophagitis Status: Acute Subjective Date/time seen: 01/13/22 15:35 Interval history: 56-year-old male hypertension hyperlipidemia admitted with chest pressure wide complex tachycardia/ ventricular tachycardia which converted to sinus rhythm with amiodarone.? Had a stable blood pressure in the emergency room. Elevated troponins.? History of hypertension and hyperlipidemia. Cardiac catheterization showed normal coronary arteries and normal left ventricular function. Date of service 01/13/2022: Patient is feeling well. at the bedside. No chest pain, dizziness or palpitations. Telemetry shows sinus bradycardia. Yesterday I spoke to electrophysiology Department at [facility], discussed whether not the patient can be seen as an outpatient or an inpatient transfer is preferred. He has been on the waiting list and now has a bed available so will be transferring to [facility] today. Review of Systems Constitutional: Constitutional: Denies fever(s) Comments: Cardiac catheterization shows no hematoma or ecchymosis. Pedal pulses are intact. Cardiovascular: Cardiovascular: Denies chest pain, Denies pedal edema, Denies lightheadedness and Denies dyspnea Respiratory: Respiratory: Denies chest congestion and Denies dyspnea Gastrointestinal: Gastrointestinal: Denies abdominal pain and Denies hematochezia Musculoskeletal: Musculoskeletal: Reports no additional musculoskeletal complaints Integumentary/Breasts: Skin/Breast: Reports system reviewed and no additional complaints, except as docu Neurologic: Reports system reviewed and no additional complaints, except as documented, Denies behavioral changes and Denies confusion Psychiatric: Psychiatric: Denies behavioral changes and Denies confusion Exam Const: General: cooperative, healthy appearing and comfortable; No confusion Orientation/consciousness: oriented to person, patient oriented x3 and No confusion Resp: Effort & Inspection: normal respiratory effort Auscultation: clear to auscultation bilaterally Cardio: Rate: regular rate Rhythm: regular rhythm GI: Inspection: normal to inspection GI Palp: No abdominal tenderness Neuro: General: oriented to person, patient oriented x3 and No confusion Extrem: Right lower extremity: no edema Left lower extremity: no edema Psych: Appearance: grossly normal Mental Status: mental status grossly normal Objective Data Vital Signs Vital Signs: Vital Signs - 24 hr 01/12/22 15:45 01/12/22 16:20 01/12/22 16:15 Temperature
--- NOTE | 2022-01-13 17:26 | PM.TDS ---
Transfer Discharge Sum: Prov Provider Date of admission: 01/11/22 22:03 Primary care physician: Abdoulaye Britt, PA-C Admitting clinician: Eugenia Ivory MD Consults: 01/11/22 Consult to Physician Routine Comment: Consulting Provider: Crissy Newell Reason for consultation: Wide-complex tachycardia Has provider been notified: Yes DS: Admitting Diagnosis Discharge Date 01/13/22 Admitting Diagnosis Ventricular tachycardia. DS: Discharge Diagnosis Discharge Diagnosis (1) Wide-complex tachycardia: Code(s): I47.2 - Ventricular tachycardia Status: Acute Assessment and Plan: Patient presented with complaints of chest pressure radiating to the left arm. He states this is very similar to times he has GERD symptoms with the only difference being that the symptoms did not resolve with belching. In the emergency room, he was noted to have V-tach and received an amiodarone bolus followed by an amiodarone drip. Patient subsequently converted to normal sinus rhythm with no significant ST changes. Troponin climbed to 0.75. Cardiology consulted. LHC showing no CAD. Echo showing EF 50-55% and Grade II diastolic dysfunction. He was changed to oral amiodarone. Patient was transferred to a tertiary care hospital for further management. (2) Elevated troponin: Code(s): R77.8 - Other specified abnormalities of plasma proteins Status: Acute Assessment and Plan: Troponin elevated to 0.75. Not unexpected given the V-tach with rate this is 212. Workup as mentioned above. We continued aspirin and Lopressor. (3) Hypertension: Code(s): I10 - Essential (primary) hypertension Status: Acute Assessment and Plan: Blood pressure remained well controlled. (4) GERD (gastroesophageal reflux disease): Code(s): K21.9 - Gastro-esophageal reflux disease without esophagitis Status: Acute Assessment and Plan: Chronic and stable. We continued famotidine and PPI. Transfer Discharge Sum: Med Medications Active and Home Medications: Home Medications cyclobenzaprine 10 mg tablet 10 mg PO TID PRN muscle spasm #20 tabs 06/13/20 [Rx Confirmed 01/12/22] valsartan 80 mg tablet 80 mg PO DAILY 06/13/20 [History Confirmed 01/12/22] aspirin 81 mg chewable tablet 81 mg PO DAILY 01/12/22 [History Confirmed 01/12/22] dexlansoprazole 60 mg capsule,biphase delayed release (Dexilant) 1 cap PO DAILY 01/12/22 [History Confirmed 01/12/22] famotidine 40 mg tablet 1 tablet PO DAILY 01/12/22 [History Confirmed 01/12/22] Transfer Discharge Sum: Hosp Hospital Course Hospital course: Solo Groves is a 56yo male with HTN here for chest pain and found to have VTach. Please see H&P for details. Please see above for details of hospital course Time Spent with Patient Time attestation: Total time spent providing and/or coordinating transfer services: 32 minutes Total time spent: Greater than 30 minutes Exam Narrative: AF 97.3 142/87 59 18 96% ra Gen - NARD Chest - CTA bilaterally, nml RR CV - RRR S1/S2. Tele showing no significant dysrhythmias Abd - Soft, NT/ND, Positive BS Ext - No pedal edema Psych - Nml mood and affect Skin - Warm and dry DS: Data Data Completed and Pending Labs on day of discharge: Labs from last 24 hours 01/13/22 01/13/22 04:37 04:37 WBC 5.7 RBC 4.12 L Hgb 13.1 L Hct 39.5 L MCV 95.9 MCH 31.8 MCHC 33.2 RDW 13.5 Plt Count 158 MPV 9.6 Sodium 138 Potassium 3.5 Chloride 108 H Carbon Dioxide 25 Anion Gap 5 L BUN 11 Creatinine 0.60 L Estim Creat Clear Calc 143 Estimated GFR > 60 Glucose 95 Calcium 8.2 L Magnesium 1.9
== END 2022-01-13 16:29 | disposition short-term general hospital (02) ==
LOC: ANHED 22:03 → ANHIMU 01-12 08:03
PROVIDERS: Emergency Medicine; Internal Medicine Cardiovascular Disease; Nurse Practitioner Adult Health; Specialist; Admitting Provider Internal Medicine; Emergency Provider Emergency Medicine; PCP Physician Assistant; Visit Provider Internal Medicine
PROC: 4A023N7 Measurement of Cardiac Sampling and Pressure, Left Heart, Percutaneous Approach (ICD-10-PCS; CPT 93452; principal; 2022-01-12 12:30)
DX: I47.2 Ventricular tachycardia (principal); R77.8 Other specified abnormalities of plasma proteins; I10 Essential (primary) hypertension; E78.00 Pure hypercholesterolemia, unspecified; K21.9 Gastro-esophageal reflux disease without esophagitis; Z79.82 Long term (current) use of aspirin; Z20.822 Contact with and (suspected) exposure to COVID-19
CPT/HCPCS: 36415; 71045; 80048; 80053; 80307; 83690; 83735; 84443; 84484; 85025; 85027; 85610; 85730; 93005; 93458; 96361; 96365; 96372; 96375; 96376; 99285; A9270; C1760; C1887; C1894; C8929; C9803; G0269; G0378; J0282; J1644; J1650; J2250; J3010; J3475; J7030; J7040; Q9957; U0003; U0005

== ENCOUNTER 2023-07-02 09:19 | Emergency (ER) | payer BC, SELFPAY ==
[2023-07-02] VITALS (8 sets, daily range): BP systolic 137–173; BP diastolic 78–89; PULSE 70–78; RESP 14–20; TEMP 36.6–36.8; O2SAT 93–98
--- NOTE | ~2023-07-02 | CT_ITS ---
EXAMINATION: CTA chest PE protocol DATE: 07/02/2023 11:48 APPLICATION INFRASTRUCTURE ENGINEER INDICATION: Pneumonia. Hemoptysis. TECHNIQUE: Computed tomographic angiography (CTA) of the chest was performed with 100 mL Omnipaque-35 0 intravenous contrast. The dose-length product was 931.68 mGy-cm. Maximum intensity projection 3D-re constructions of the aorta and other arteries were constructed by the technologist on a separate work station. COMPARISON: Chest x-ray dated 07/02/2023. FINDINGS: No thoracic lymphadenopathy. Heart size normal. No significant pleural or pericardial effus ion. No large central pulmonary embolism. Evaluation of the peripheral pulmonary arteries limited by motion artifact and contrast bolus timing. No evidence for aortic aneurysm or dissection. Upper abdom en is unremarkable. There is dependent atelectasis. No focal airspace disease to suggest pneumonia. N o pneumothorax. No endobronchial lesions. No suspicious pulmonary nodules or masses. IMPRESSION: 1. No acute cardiopulmonary disease. Reviewed, dictated and finalized at location A. ICATION INFRASTRUCTURE ENGINEER
--- NOTE | ~2023-07-02 | XR_ITS ---
EXAMINATION: XR chest 2V 07/02/2023 10:23 INDICATION: Pneumonia PROCEDURE: 2 view chest COMPARISON: 01/11/2022 FINDINGS: The lungs are clear. The cardiomediastinal silhouette is within normal limits. There are no pleural effusions. There is no pneumothorax suspected. IMPRESSION: 1: NO ACUTE CARDIOPULMONARY DISEASE. Reviewed, dictated and finalized at location A. OGRAPHIC ENGINEER
--- NOTE | 2023-07-02 09:37 | ECG_ITS ---
Measurements Intervals [place] Rate: 72 P: 28 NV: 163 QRS: -17 QRSD: 121 T: 60 QT: 380 QTc: 416 Interpretive Statements SINUS RHYTHM NORMAL ELECTROCARDIOGRAM COMPARED TO ECG 01/11/2022 21:07:14 NO DIFFERENCE Electronically Signed On 07-03-2023 7:14:09 TILE MECH[employer]IC HELPER by Jame Smith M.D.
[2023-07-02 09:49] LABS: Basophils Percent Auto 0.5 % (0.2-1.2); Eosinophils Percent Auto 0.2 % (0-4.4); Hematocrit 44.6 % (42.0-52.0); Hemoglobin 14.5 g/dL (14.0-18.0); Immature Granulocyte Absolute 0.07 K/mm3 (0.00-0.031); Immature Granulocyte Percent A 1.1 % (0-0.5); Lymphocytes Absolute Auto 2.98 K/mm3 (0.9-3.2); Lymphocytes Percent Auto 45.6 % (18.3-44.2); Mean Corpuscular HGB Conc 32.5 g/dl (32-36); Mean Corpuscular Hemoglobin 31.3 pg (26-34); Mean Corpuscular Volume 96.1 fl (80-100); Mean Platelet Volume 8.8 fl (7.4-10.4); Monocytes Absolute Auto 0.5 K/mm3 (0.1-0.6); Monocytes Percent Auto 8.3 % (2.6-8.5); Neutrophils Absolute Auto 2.9 K/mm3 (1.3-6.7); Neutrophils Percent Auto 44.3 % (45.5-73.1); Platelet Count Result 183 k/mm3 (150-375); Red Blood Count 4.64 M/mm3 (4.6-6.20); Red Cell Distribution Width 12.7 % (11.5-14.5); White Blood Count 6.5 K/mm3 (4.5-10.0)
[2023-07-02 09:59] LABS: Alanine Aminotransferase 91 U/L (6-50); Albumin Level 4.1 g/dL (3.5-5.1); Alkaline Phosphatase 75 U/L (38-126); Anion Gap 7 mmol/L (8-16); Aspartate Amino Transferase 64 U/L (17-59); Bilirubin,Total 0.9 mg/dL (0.2-1.3); Blood Urea Nitrogen 15 mg/dL (9-20); Calcium 9.1 mg/dL (8.4-10.2); Carbon Dioxide 26 mmol/L (22-30); Chloride 106 mmol/L (98-107); Estimated CRCL calculation 122 ml/min; Estimated Glomerular Filt Rate > 60; Glucose 125 mg/dL (65-110); Potassium 3.4 mmol/L (3.4-5.0); Sodium 139 mmol/L (137-145)
[2023-07-02 10:21] LABS: Atypical Lymphocytes Present; Platelet Estimate Adequate (Adequate); Schistocytes None Seen (NORMAL)
--- NOTE | 2023-07-02 10:39 | ED.GENADULT ---
HPI - General Adult General Chief complaint: Shortness of Breath/Dyspnea Stated complaint: I have pneumonia. Time Seen by Provider: 07/02/23 09:46 History of Present Illness HPI narrative: 58-year-old male presenting to the emergency department for evaluation increased cough and congestion. Patient was diagnosed with a pneumonia Monday and was started on prednisone albuterol and doxycycline. Patient presented to the emergency department today because he did have 1 episode where he had some blood in his sputum. Patient described it as a trace amount and it only occurred the 1 time. Patient is not a smoker and denies any prior history of underlying lung disease. Related Data Home Medications Medication Instructions Recorded Confirmed valsartan 80 mg tablet 80 mg PO DAILY 06/13/20 07/02/23 aspirin 81 mg chewable tablet 81 mg PO DAILY 01/12/22 07/02/23 famotidine 40 mg tablet 1 tablet PO DAILY 01/12/22 07/02/23 albuterol sulfate 90 mcg/actuation inhalation 07/02/23 aerosol inhaler doxycycline hyclate 100 mg capsule mg 07/02/23 metoprolol succinate 25 mg mg PO 07/02/23 tablet,extended release 24 hr Allergies Allergy/AdvReac Type Severity Reaction Status Date / Time No Known Allergies Allergy Verified 06/13/20 09:32 Review of Systems Review of Systems: All systems reviewed & are unremarkable except as noted in HPI and below PMFSH Past Medical History Medical History (Updated 07/02/23 @ 12:40 by Richard Pisano MD) GERD (gastroesophageal reflux disease) High cholesterol Hypertension Wide-complex tachycardia Family History Family History (Updated 01/12/22 @ 10:05 by Crissy Newell MD) Sibling Diabetes mellitus Lupus Heart disease Father Diabetes mellitus Parkinsons disease Dementia Mother Dementia Alzheimer's dz Social History Social History (Updated 01/12/22 @ 10:04 by Crissy Newell MD) Social History: , 3 sons, 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 Smoking status: Never smoker Alcohol intake: current Drinks per week: 2 Substance use: never Living arrangements: with family Occupation/Education: occupation Spiritual care concerns: No Exam Narrative: APPEARANCE: Well appearing, no pain, no distress, well-nourished. HEAD: normocephalic, atraumatic. EYES: PERRLA/EOMI, conjunctivae clear. NOSE: Normal no drainage EARS:TMS clear with good light reflex. THROAT: Pharynx clear, no exudate. NECK: Supple. No adenopathy, no masses. RESPIRATORY: lower lung congestion CARDIOVASCULAR: Regular rate and rhythm without murmurs rubs or gallops. ABDOMINAL: Soft, nontender, nondistended, normal bowel sounds MUSCULOSKELETAL: Moves all extremities. Strength/ROM intact, No edema, No calf tenderness. NEURO: Alert. Cranial nerves II through XII intact. Grossly intact SKIN: Warm, dry. Normal Color Course Course Emergency Course: 58-year-old male presented to the emergency department for evaluation of increased cough congestion and some blood in his sputum. Patient had some minor improvement with the breathing treatment. Patient was afebrile with no leukocytosis and a stable hemoglobin. Normal CMP. CTA showed pulmonary embolism and no acute abnormality. Patient had no further hematemesis. Patient was educated on reasons to return to the emergency department. All questions concerns were addressed and patient was well-appearing at time of discharge. Vital Signs Vital signs: Vital Signs Temperature 97.8 F 07/02/23 09:26 Pulse Rate 78 07/02/23 09:26 Respiratory Rate 16 07/02/23 09:26 Blood Pressure 173/78 H 07/02/23 09:26 Pulse Oximetry 98 07/02/23 09:26 Oxygen Delivery Room Air 07/02/23 09:26 Temperature 98.3 F 07/02/23 12:17 Pulse Rate 73 07/02/23 12:48 Respiratory Rate 14 07/02/23 12:48 Blood Pressure 137/80 07/02/23 12:48 Pulse Oximetry 93 07/02/23 12:48 Oxygen Delivery R
[2023-07-02] MEDS: ALBUTEROL SULFATE NEB 2.5 MG/3 ML INH INHALATION (10:53)
== END 2023-07-02 12:48 | disposition home or self-care (01) ==
PROVIDERS: Emergency Provider Emergency Medicine; PCP Physician Assistant
DX: R04.2 Hemoptysis (principal); K21.9 Gastro-esophageal reflux disease without esophagitis; E78.00 Pure hypercholesterolemia, unspecified; I10 Essential (primary) hypertension
CPT/HCPCS: 36415; 71046; 71275; 80053; 85025; 93005; 94640; 94664; 99284; Q9967

== ENCOUNTER 2023-07-28 01:13 | Emergency (ER) | payer BC, SELFPAY ==
--- NOTE | 2023-07-28 11:42 | ECG_ITS ---
Measurements Intervals [place] Rate: 90 P: 24 [place]: 175 QRS: -31 QRSD: 120 T: 64 QT: 359 QTc: 440 Interpretive Statements SINUS RHYTHM LEFT AXIS DEVIATION POSSIBLE LEFT ATRIAL ENLARGEMENT INTRAVENTRICULAR CONDUCTION DELAY BORDERLINE R WAVE PROGRESSION, ANTERIOR LEADS BORDERLINE ST ABNORMALITY- HIGH LATERAL LEADS BORDERLINE ECG COMPARED TO ECG 07/02/2023 09:40:39 LEFT-AXIS DEVIATION NOW PRESENT Electronically Signed On 07-28-2023 12:52:17 PARTITION ASSEMBLY MACHINE OPERATOR by Alex Shaver D.O.
== END 2023-07-28 08:02 | disposition left against medical advice (07) ==
PROVIDERS: Emergency Provider Emergency Medicine; PCP Physician Assistant
DX: R00.2 Palpitations (principal)
CPT/HCPCS: 93005; 99199

== ENCOUNTER 2024-09-08 07:46 | Emergency (ER) | payer BC, SELFPAY ==
--- NOTE | ~2024-09-08 | CT_ITS ---
EXAMINATION: CT abdomen pelvis wo con DATE: 09/08/2024 08:49 INDICATION: Right flank pain. TECHNIQUE: Computed tomography (CT) of the abdomen and pelvis was performed without intravenous contr ast. Automated exposure control and iterative reconstruction technique were employed. The dose-length product was 647.34 mGy-cm. COMPARISON: None. FINDINGS: The visualized portions of lung bases demonstrate mild atelectasis. No pleural effusion. Th e heart size is normal. No pericardial effusion. There is mild elevation of right hemidiaphragm. Ther e is diffuse hepatic steatosis. The gallbladder, spleen, pancreas, and adrenal glands are normal. The re are 3 stones in right kidney measuring up to 4 mm. There are 4 mm and 2 mm stones at right uretero vesicular junction. There is mild right hydronephrosis and hydroureter. There are 5 stones in left ki dney measuring up to 5 mm. The prostate is moderately enlarged. There is diverticulosis of the colon without evidence of diverticulitis. The appendix is normal. There are no dilated loops of bowel. Ther e are no pathologically enlarged lymph nodes. There is no free intraperitoneal fluid. There is mild t horacic and lumbar spondylosis. IMPRESSION: 1. 4 mm and 2 mm stones at right ureterovesicular junction with mild right hydronephrosis and hydrour eter. 2. Bilateral nonobstructing kidney stones. Reviewed, dictated and finalized at location A. RT PACKER IMPRESSION: 1. 4 mm and 2 mm stones at right ureterovesicular junction with mild right hydr onephrosis and hydroureter. 2. Bilateral nonobstructing kidney stones.
--- OUTSIDE RECORDS SUMMARY | 2024-09-08 07:49 | XMS_ITS | CONTINUITY OF CARE DOCUMENT ---
Author Name gabrielle anthony Address Unknown Organization [facility] Address [address] [facility] [address] [place] [address] Phone [phone] Care Team Providers Care Floor Associate Name Role Phone gabrielle anthony Unavailable Unavailable
--- OUTSIDE RECORDS SUMMARY | 2024-09-08 07:49 | XMS_ITS | Continuity of Care Document ---
Author Organization [facility] Address [address] [place] [address] [address] [place] [address] Phone Care Team Providers Care Check Pilot Name Role Phone Teresa Zavala PT Unavailable Unavailable Procedures Procedure Date THERAPEUTIC EXERCISES NEUROMUSCULAR RE-ED MANUAL THERAPY FUNC ACTIVITY 15 MIN HOT/COLD PACK THERAPEUTIC EXERCISES NEUROMUSCULAR RE-ED MANUAL THERAPY FUNC ACTIVITY 15 MIN HOT/COLD PACK ELECTRIC STIMULATION UNA THERAPEUTIC EXERCISES NEUROMUSCULAR RE-ED MANUAL THERAPY FUNC ACTIVITY 15 MIN HOT/COLD PACK ELECTRIC STIMULATION UNA THERAPEUTIC EXERCISES NEUROMUSCULAR RE-ED MANUAL THERAPY FUNC ACTIVITY 15 MIN HOT/COLD PACK ELECTRIC STIMULATION UNA THERAPEUTIC EXERCISES NEUROMUSCULAR RE-ED MANUAL THERAPY HOT/COLD PACK ELECTRIC STIMULATION UNATT PT EVALUATION THERAPEUTIC EXERCISES MANUAL THERAPY HOT/COLD PACK ELECTRIC STIMULATION UNATT Advance Directives Directive Yes / No Effective Date File Name No Information Encounters Encounter Description Practice Location Reason(s) For Visit Diagnoses Date Provider Providers Copied on Encounter [facility], [address] [place], [place] [address], [place], [place], [id number], tel:[phone] [place] No Information Muehl Teresa. [address] [facility], [address], [place], [place], [facility], [place]. tel:[phone], [place], [place], [address], tel:[phone] [place] No Information Muehl Teresa. [address] [place] [address], [address], [place], [place], [facility], [place]. tel:[phone], [place], [place], [address], tel:[phone] [place] No Information Muehl Teresa. [address] [place] [address], [address], [place], [place], [facility], [place]. tel:[phone], [place], [place], [id number], [place] tel:[phone] [place] No Information Muehl Teresa. [address] [place] [address], [address], [place], [place], [facility], [place]. tel:[phone], [place], [place], [address], tel:[phone] [place] No Information Muehl Teresa. [address] [facility], [address], [place], [place], [facility], [place]. tel:[phone], [place], [place], [address], tel:[phone] [place] No Information Muehl Teresa. [address] [facility], [address], [place], [place], [facility], . tel:[phone], [place], [place], [address], [place] tel:[phone] [facility] Lucas Moore. [address] [facility], [address], [place], [address], [place]. tel:[phone] Family History Family Member Type Diagnosis Age At Onset No Information Payers Payer name Insurance type Covered alliance party ID Authornasrina harperjosefa(s) [facility] [id number] Social History Type Description Quantity Date Captured Comments Sex Male Smoking Status No Information Chief Complaint And Reason For Visit No Information Reason For Referral Reason For Referral No Information History Of Present Illness Encounter Date Complaint History Of Prese nt Illness No Information Functional Status Date Functional Assessmen t No Information Instructions Date Instruction Additional Infor mation No Information Assessments Type Assessment Date No Information Patient Care Teams Name Effective Dates (start - stop) Status Members No Information
[2024-09-08 07:54] VITALS: BP 167/76; PULSE 72; RESP 19; TEMP 36.5; O2SAT 98
--- NOTE | 2024-09-08 08:03 | ED_ITS ---
HPI - General Adult General Chief complaint: Urogenital-Male Stated complaint: left flank pain Time Seen by Provider: 09/08/24 07:55 History of Present Illness HPI narrative: 59-year-old male presenting to the emergency department for evaluation of right- sided flank pain. Patient reports that the pain awoke him this morning at approximately 4:00 a.m.. Patient describes right-sided flank pain that radiates around to the right lower quadrant. Patient denies any associated nausea or vomiting. Patient denies noticing any hematuria. Patient has no prior history of kidney stones. Upon arrival patient states his pain is currently an 8/10 and patient is uncomfortable appearing. Patient does have history of cardiac ablation, patient does take an aspirin, metoprolol and valsartan Zoloft. Related Data Home Medications ?Medication ?Instructions ?Recorded ?Confirmed ?Last Taken ?Type valsartan 80 mg tablet 80 mg PO DAILY 06/13/20 07/02/23 01/11/22 08:00 History aspirin 81 mg chewable tablet 81 mg PO DAILY 01/12/22 07/02/23 01/11/22 08:00 History famotidine 40 mg tablet 1 tablet PO DAILY 01/12/22 07/02/23 01/11/22 08:00 History albuterol sulfate 90 mcg/actuation inhalation 07/02/23 Unknown History aerosol inhaler doxycycline hyclate 100 mg capsule mg 07/02/23 Unknown History metoprolol succinate 25 mg mg PO 07/02/23 Unknown History tablet,extended release 24 hr Allergies Allergy/AdvReac Type Severity Reaction Status Date / Time No Known Allergies Allergy Verified 09/08/24 07:49 Review of Systems 2 Review of Systems: All systems reviewed & are unremarkable except as noted in HPI and below PMFSH Past Medical History Medical History (Updated 09/08/24 @ 10:15 by Richard Pisano MD) GERD (gastroesophageal reflux disease) Hypertension Wide-complex tachycardia High cholesterol Family History Family History (Updated 01/12/22 @ 10:05 by Crissy Wilson MD) Sibling Diabetes mellitus Lupus Heart disease Father Diabetes mellitus Parkinsons disease Dementia Mother Dementia Alzheimer's dz Social History Social History (Updated 01/12/22 @ 10:04 by Crissy Wilson MD) Social History: , 3 sons, 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 Smoking status: Never smoker Alcohol intake: current Drinks per week: 2 Substance use: never Living arrangements: with family Occupation/Education: occupation Spiritual care concerns: No Exam 2 Narrative: APPEARANCE: Uncomfortable appearing HEAD: normocephalic, atraumatic. EYES: PERRLA/EOMI, conjunctivae clear. NOSE: Normal no drainage EARS:TMS clear with good light reflex. THROAT: Pharynx clear, no exudate. NECK: Supple. No adenopathy, no masses. RESPIRATORY: Airway patent, respirations nonlabored. Clear to auscultation bilaterally, no rales, rhonchi, wheezing. CARDIOVASCULAR: Regular rate and rhythm without murmurs rubs or gallops. ABDOMINAL: Mild right CVA tenderness to palpation, right lower quadrant pain with no significant tenderness to palpation MUSCULOSKELETAL: Moves all extremities. Strength/ROM intact, No edema, No calf tenderness. NEURO: Alert. Cranial nerves II through XII intact. Grossly intact SKIN: Warm, dry. Normal Color Course Vital Signs Vital signs: Vital Signs Temperature 97.7 F 09/08/24 07:54 Pulse Rate 72 09/08/24 07:54 Respiratory Rate 19 09/08/24 07:54 Blood Pressure 167/76 H 09/08/24 07:54 Pulse Oximetry 98 09/08/24 07:54 Temperature 98.2 F 09/08/24 10:26 Pulse Rate 80 09/08/24 10:26 Respiratory Rate 16 09/08/24 10:26 Blood Pressure 148/76 H 09/08/24 10:26 Pulse Oximetry 98 09/08/24 10:26 Medical Decision Making [facility] Narrative Medical decision making narrative: 59-year-old male presents to the emergency department for evaluation for right flank pain. Patient was initially treated with a dose of IV Dilaudid and this did not significantly improve his pain. Patient did have hematuria on his UA with no underlying evidence of infection. Patient is afebrile with no leukocytosis and a stable hemoglobin of 15. No significant abnormalities the patient's CMP within normal creatinine of 0.65. CT scan did show ureteral calculi by the UVJ of 4 mm and 2 mm. Patient was treated with a dose of IV Toradol and states his pain is a 0 to a 1 and patient is in no distress at time of re-evaluation. Patient family were updated the results of the workup and plan for treatment for home. Patient was also treated with a dose of Flomax in the emergency department. Patient will be started on Flomax, Sarver and Zofran for symptom control. Patient will be provided outpatient follow-up with Urology. Differential Diagnosis Differential Diagnosis: Urinary tract infection, kidney stone, pyelonephritis, diverticulitis, colitis Vital Signs Vital Signs: Vital Signs Temperature 97.7 F 09/08/24 07:54 Pulse Rate 72 09/08/24 07:54 Respiratory Rate 19 09/08/24 07:54 Blood Pressure 167/76 H 09/08/24 07:54 Pulse Oximetry 98 09/08/24 07:54 Temperature 98.2 F 09/08/24 10:26 Pulse Rate 80 09/08/24 10:26 Respiratory Rate 16 09/08/24 10:26 Blood Pressure 148/76 H 09/08/24 10:26 Pulse Oximetry 98 09/08/24 10:26 Lab Data Lab results reviewed: Yes I reviewed the patient's lab results. 09/08/24 08:03 09/08/24 08:03 Labs: Lab Results 09/08/24 09/08/24 Range/Units 08:03 08:12 WBC 7.7 (4.5-10.0) K/mm3 RBC 4.65 (4.6-6.20) M/mm3 Hgb 15.0 (14.0-18.0) g/dL Hct 44.7 (42.0-52.0) % MCV 96.1 (80-100) fl MCH 32.3 (26-34) pg MCHC 33.6 (32-36) g/dl RDW 13.4 (11.5-14.5) % Plt Count 188 (150-375) k/mm3 MPV 9.8 (7.4-10.4) fl Immature Gran % (Auto) 0.5 (0-0.5) % Neut % (Auto) 53.8 (45.5-73.1) % Lymph % (Auto) 35.8 (18.3-44.2) % [place] % (Auto) 7.9 (2.6-8.5) % Eos % (Auto) 1.6 (0-4.4) % Baso % (Auto) 0.4 (0.2-1.2) % Lymph # (Auto) 2.76 (0.9-3.2) K/mm3 [place] # (Auto) 0.6 (0.1-0.6) K/mm3 Eos # (Auto) 0.1 (0-0.3) K/mm3 Baso # (Auto) 0.0 (0.0-0.1) K/mm3 Abs Immat Gran (auto) 0.04 H (0.00-0.031) K/mm3 Absolute Neuts (auto) 4.2 (1.3-6.7) K/mm3 Absolute Nucleated RBC 0.000 (0.0-0.012) K/mm3 Nucleated RBC % 0.0 (0.0-0.2) % Sodium 140 (137-145) mmol/L Potassium 3.8 (3.4-5.0) mmol/L Chloride 106 (98-107) mmol/L Carbon Dioxide 25 (22-30) mmol/L Anion Gap 9 (4-12) mmol/L BUN 12 (9-20) mg/dL Creatinine 0.65 L (0.7-1.3) mg/dL Estim Creat Clear Calc 131 ml/min Estimated GFR > 60 (59 - ) Glucose 116 H (65-110) mg/dL Calcium 9.0 (8.4-10.2) mg/dL Total Bilirubin 1.0 (0.2-1.3) mg/dL AST 38 (17-59) U/L ALT 63 H (6-50) U/L Alkaline Phosphatase 118 (38-126) U/L Total Protein 7.0 (6.3-8.2) g/dL Albumin 4.1 (3.5-5.1) g/dL Urine Color Yellow (Yellow) Urine Appearance Cloudy H (Clear) Urine pH 6.0 (5.0-9.0) Ur Specific [place] 1.016 (1.001-1.035) Urine Protein Trace (Negative) mg/dL Urine Glucose (UA) Negative (Negative) mg/dL Urine Ketones Negative (Negative) mg/dL Ur Blood (Man) 1+ H (Negative) Urine Nitrate Negative (Negative) Urine Bilirubin Negative (Negative) Urine Urobilinogen 1.0 (<2.0) mg/dL Leukocyte Esterase Rfl Negative (Negative) [place]/UL Urine RBC 21-50 H (0-2) /hpf Urine WBC 0-5 (0-3) /hpf Ur Squamous Epith Cells None seen (Few) /hpf Urine Bacteria None seen /hpf Urine Casts 0-2 Imaging Data Radiologist's impression: Impressions Abdomen/Pelvis CT 09/08/24 08:57 IMPRESSION: 1. 4 mm and 2 mm stones at right ureterovesicular junction with mild right hydronephrosis and hydroureter. 2. Bilateral nonobstructing kidney stones. Discharge Plan Discharge Clinical Impression: Calculi, ureter Patient Disposition: Home, Self-Care Condition: Stable Instructions: Antibiotic Form, Kidney Stones (ED), How to Strain Your Urine (ED), Flank Pain (ED) Additional Instructions: Ibuprofen for pain control. Zofran as needed for nausea control. Sarver as needed for additional pain control. Flomax as directed to help you pass the stone. Strain your urine as instructed to help catch the stone. Have close follow-up with Urology. If you have any worsening symptoms including uncontrolled pain, elevated fever or if you have any questions or concerns then please call or return to the emergency department. Patient Language: [place] Prescriptions: New ondansetron 4 mg tablet,disintegrating 4 mg PO Q8H PRN (Reason: nausea and vomiting) Qty: 14 0RF tamsulosin [Flomax] 0.4 mg capsule 0.4 mg PO DAILY 14 Days Qty: 14 0RF hydrocodone-acetaminophen 5-325 mg tablet 1 tablet PO Q12H PRN (Reason: pain) Qty: 14 0RF No Action valsartan 80 mg tablet 80 mg PO DAILY cyclobenzaprine 10 mg tablet 10 mg PO TID PRN (Reason: muscle spasm) Qty: 20 0RF aspirin 81 mg Tablet,Chewable 81 mg PO DAILY famotidine 40 mg tablet 1 tablet PO DAILY metoprolol succinate 25 mg tablet extended release 24 hr PO doxycycline hyclate 100 mg capsule albuterol sulfate 90 mcg/actuation HFA aerosol inhaler INHALATION Follow-up/Referrals: Balwinder,Abdoulaye Warner PA-C [Primary Care Provider] - Robel Montgomery MD [Physician] -
[2024-09-08 08:08] LABS: Basophils Percent Auto 0.4 % (0.2-1.2); Eosinophils Absolute Auto 0.1 K/mm3 (0-0.3); Eosinophils Percent Auto 1.6 % (0-4.4); Hematocrit 44.7 % (42.0-52.0); Immature Granulocyte Absolute 0.04 K/mm3 (0.00-0.031); Immature Granulocyte Percent A 0.5 % (0-0.5); Lymphocytes Absolute Auto 2.76 K/mm3 (0.9-3.2); Lymphocytes Percent Auto 35.8 % (18.3-44.2); Mean Corpuscular HGB Conc 33.6 g/dl (32-36); Mean Corpuscular Hemoglobin 32.3 pg (26-34); Mean Corpuscular Volume 96.1 fl (80-100); Mean Platelet Volume 9.8 fl (7.4-10.4); Monocytes Absolute Auto 0.6 K/mm3 (0.1-0.6); Monocytes Percent Auto 7.9 % (2.6-8.5); Neutrophils Absolute Auto 4.2 K/mm3 (1.3-6.7); Neutrophils Percent Auto 53.8 % (45.5-73.1); Platelet Count Result 188 k/mm3 (150-375); Red Blood Count 4.65 M/mm3 (4.6-6.20); Red Cell Distribution Width 13.4 % (11.5-14.5); White Blood Count 7.7 K/mm3 (4.5-10.0)
[2024-09-08] MEDS: HYDROmorphone HCL INJ (*CRX) 1 MG/ML SYR IV PUSH (08:09)
[2024-09-08] MEDS: SODIUM CHLORIDE 0.9% IV 1,000 ML 999 ML IV CONT (08:12)
--- OUTSIDE RECORDS SUMMARY | 2024-09-08 08:17 | XMS_ITS | CONTINUITY OF CARE DOCUMENT ---
Author Name gabrielle anthony Address Unknown Organization [facility] Address [address] [address] [place] [address] Phone [phone] Care Team Providers Care Dynamite Packing Machine Operator Name Role Phone gabrielle anthony Unavailable Unavailable
--- OUTSIDE RECORDS SUMMARY | 2024-09-08 08:17 | XMS_ITS | Encounter Summary ---
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 Historical Provider Final Res ult documented in this encounter Visit Diagnoses Not on filedocumented in this encounter Care Teams Dealer Account Manager Relationship Specialty Start Date End Date Abdoulaye Britt PA PCP - General Family Medicine 04/15/19 documented as of this encounter
--- OUTSIDE RECORDS SUMMARY | 2024-09-08 08:17 | XMS_ITS | Encounter Summary ---
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 Historical Provider Final Res ult documented in this encounter Visit Diagnoses Not on filedocumented in this encounter Care Teams Food Safety Scientist Relationship Specialty Start Date End Date Abdoulaye Britt PA PCP - General Family Medicine 04/15/19 documented as of this encounter
--- OUTSIDE RECORDS SUMMARY | 2024-09-08 08:17 | XMS_ITS | Encounter Summary ---
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 us Historical Provider Final Res ult documented in this encounter Visit Diagnoses Not on filedocumented in this encounter Care Teams Candle Wrapper Relationship Specialty Start Date End Date Abdoulaye Britt PA PCP - General Family Medicine 04/15/19 documented as of this encounter
--- OUTSIDE RECORDS SUMMARY | 2024-09-08 08:18 | XMS_ITS | Clinical Summary ---
Author Organization [facility] Building Address [address] [place] [address] Care Team Providers Care Drug Safety Data Management Specialist Name Role Phone Abdoulaye Britt Primary Care Provider [phone] Allergies No known active allergies Medications magnesium oxide 500 mg capsuleIndicati ons:supplement Take 1 capsule by mouth every morning Active potassium gluconate 595 mg (99 mg) tabletIndicatio ns:hypokalemia prevention Take 1 tablet (595 mg total) by mouth every morning Active cholecalciferol , vitamin D3, (VITAMIN D3 ORAL)Indication s:supplement Take 1 capsule by mouth every morning Active acetaminophen (TYLENOL) 500 mg tablet Take 2 tablets (1,000 mg total) by mouth every 6 (six) hours as needed for pain or headaches Active famotidine (PEPCID) 40 mg tablet Take 1 tablet (40 mg total) by mouth 2 (two) times a day 180 tablet 3 2 Active aspirin 81 mg enteric coated tablet Take 1 tablet (81 mg total) by mouth daily Active cyclobenzaprine (FLEXERIL) 5 mg tablet Take 1 tablet (5 mg total) by mouth 3 (three) times a day as needed for muscle spasms 90 tablet 3 3 Active vit A/C/E ac/ZnOx/cupric oxide (EYE VITAMIN AND MINERALS ORAL) Take by mouth A ctive sertraline (ZOLOFT) 25 mg tablet Take 1 tablet (25 mg total) by mouth daily 90 tablet 4 4 Active valsartan (DIOVAN) 160 mg tablet Take 0.5 tablets (80 mg total) by mouth daily 1/2 tablet daily 90 tablet 4 Active metoprolol XL (TOPROL-XL) 25 mg extended release tablet Take 1 tablet (25 mg total) by mouth daily 90 tablet 4 Active Active Problems Problem Noted Date Diagnosed Date Cold and clammy skin 10/31/2023 Generalized anxiety disorder 08/08/2023 Assessment & Plan (09/19/2023 9:51 AM MINE EXPLORATION ENGINEER): This is stable chronic condition with no SI HI we are going to continue current medication patient does want to try to come off it in the spring as he feels he has seasonal affective disorder we discussed proper tapering mechanism he will keep me in the Assessment & Plan (08/08/2023 10:26 AM MINE EXPLORATION ENGINEER): Images from the original note were not included. This is new an mild we did discuss relaxation techniques we out discuss counseling and options The pharmacologic and nonpharmacologic treatment of anxiety/depression were discusses with the patient. Included was a discussion of the current treatment regimens and their proposed mechanism of action concerning brain chemistry. Discussed the role of counseling as an adjunct to medications should we agree to pursue this. The patient is non-suicidal, and agrees to inform us of any change in this status follow up in 4-6 weeks- sooner if any problems Cervical pain 08/03/2022 PLMD (periodic limb movement disorder) 3 Assessment & Plan (08/13/2024 8:58 AM MINE EXPLORATION ENGINEER): Asymptomatic Assessment & Plan (02/01/2024 11:39 AM CDT): The patient denies that his limbs are moving at night when he sleeps Assessment & Plan (09/19/2023 9:51 AM MINE EXPLORATION ENGINEER): This a stable chronic condition will continue to follow Assessment & Plan (05/17/2023 10:59 AM CDT): This is improved with magnesium will continue to follow Assessment & Plan (02/16/2023 11:06 AM CDT): Continue magnesium and exercise Assessment & Plan (01/30/2023 10:35 AM CDT): Asymptomatic Assessment & Plan (08/03/2022 9:08 AM MINE EXPLORATION ENGINEER): Continue mg Assessment & Plan (08/01/2022 11:25 AM MINE EXPLORATION ENGINEER): Currently asymptomatic. I have ordered an iron and ferritin level. The BUN and creatinine on July 27, 2022 was BUN 19 and creatinine 0.7 Obstructive sleep apnea syndrome 02/21/2022 Assessment & Plan (08/13/2024 8:59 AM MINE EXPLORATION ENGINEER): Due to ongoing symptoms, the patient will continue CPAP at 14 cm water pressure. I have offered to increase the CPAP pressure due to the slightly elevated AHI, the patient would like to decline at this time. Denied need for supplies. DME [facility] Assessment & Plan (02/01/2024 11:38 AM CDT): Patient continue to wear his CPAP at 14 cm water pressure while sleeping. The patient denies the want for an increase in pressure at this time. The patient's DME is [employer]. Assessment & Plan (09/19/2023 9:51 AM MINE EXPLORATION ENGINEER): Continue CPAP Assessment & Plan (05/17/2023 10:59 AM CDT): This is stable on CPAP we will continue to follow Assessment & Plan (02/16/2023 11:05 AM CDT): Encourage CPAP Assessment & Plan (01/30/2023 10:36 AM CDT): Patient will continue with CPAP at 14 cm water pressure. I have offered to change the settings, however the patient is happy with his current setting. Denied need for supplies. DME [facility] Assessment & Plan (08/03/2022 9:08 AM MINE EXPLORATION ENGINEER): Controlled with c-pap Assessment & Plan (08/01/2022 11:24 AM MINE EXPLORATION ENGINEER): Due to the patient being intolerant of optimal pressure of 18 cm water pressure, Patient will continue CPAP therapy at 14 cm water pressure. Denied need for supplies. DME [employer] VT (ventricular tachycardia) 2022 Assessment & Plan (06/28/2022 1:46 PM MINE EXPLORATION ENGINEER): VT s/p VT ablation 2022 - Dr. Valenzuela No recurrent VT post ablation Stop verapamil Continue aspirin 81 mg daily Continue metoprolol XL 25 mg daily Continue remote monitoring via ILR Assessment & Plan (03/29/2022 4:20 PM CDT): VT s/p VT ablation 2022 - Dr. Valenzuela No recurrent VT post ablation Continue remote monitoring via ILR Continue aspirin 325 mg daily; decrease aspirin 81 mg daily on 04/16/2022 Continue metoprolol XL 25 mg daily Continue verapamil 120 mg daily until next follow up - in no recurrent ventricular arrhythmias, will d/c verapamil Assessment & Plan (03/14/2022 11:02 AM CDT): He had issues post ablation, does not like monitor in chest, will release to work 4 hours per day for 2 weeks NSVT (nonsustained ventricular tachycardia) 12/17 Assessment & Plan (09/19/2023 9:51 AM MINE EXPLORATION ENGINEER): This is a stable chronic condition patient is asymptomatic will continue to follow Assessment & Plan (08/08/2023 10:25 AM MINE EXPLORATION ENGINEER): Patient has been stable since he had an ablation Assessment & Plan (05/17/2023 10:59 AM CDT): This is stable and patient is followed by cardiology, continue current medications follow-up routine Assessment & Plan (02/16/2023 11:05 AM CDT): Patient is seen Cardiology and well controlled with beta-blockers will continue to follow Assessment & Plan (08/03/2022 9:08 AM MINE EXPLORATION ENGINEER): Well controlled Assessment & Plan (02/15/2022 2:12 PM CDT): Presented to OSH with chest tightness and found to have a HR in 200s. EKG suggestive of VT. Resolved with amiodarone and metopralol. Patient was then transferred to [facility] on 01/13/2022. Echocardiogram with EF 59%, [facility] with no CAD. Patient was eventually discharged on verapamil and metoprolol. After discharge Cardiac MRI was done and showed no scars or wall motion abnormalities. Cardiac event monitor was placed on 01/28/2022. Admitted today after successful VT ablation. - Patient with minor bleeding event after procedure from right LE access site that resolved with pressure and compression dressing. No further bleeding. No hematoma to groin sites. Neurovascularly intact. -Tele shows NSR -Continue full dose ASA x2 months, then 81 mg, metoprolol 25 mg daily and verapamil 120 mg daily. -F/U Cards as outpt Assessment & Plan (01/31/2022 10:35 AM CDT): On medications, scheduled for ablation, go to ER for recurrence Benign prostatic hyperplasia with urinary freque ncy 06/02/2021 Assessment & Plan (09/19/2023 9:50 AM MINE EXPLORATION ENGINEER): This is a stable chronic condition will continue to follow Assessment & Plan (08/08/2023 10:25 AM MINE EXPLORATION ENGINEER): Currently controlled with no meds will continue to follow Assessment & Plan (05/17/2023 10:58 AM CDT): This is stable will continue to follow Assessment & Plan (02/16/2023 11:05 AM CDT): Currently Assessment & Plan (08/03/2022 9:07 AM MINE EXPLORATION ENGINEER): controlled Assessment & Plan (06/02/2021 7:37 AM MINE EXPLORATION ENGINEER): This is new an uncontrolled, we discussed options and agreed to start Flomax we did discuss the meds use and potential side effects he will update me if he has any issues BMI 32.0-32.9,adult 11/18/2020 Assessment & Plan (11/18/2020 9:25 AM CDT): Healthy diet and exercise, goal bmi less then 30 Acute pain of right knee 06/17/2020 Acute pain of left knee 06/17/2020 Assessment & Plan (11/18/2020 9:25 AM CDT): Scheduled for surgery, will follow Assessment & Plan (09/23/2020 5:00 PM MINE EXPLORATION ENGINEER): Images from the original note were not included. consent signed site prepped injection using 1 cc each (1% lidocain/lidocain/marcain 0.25%/kenalog 40) patient tolerated procedure with no complications drsg applied ice tid for 5-10 min f/u prn discussed s/s to monitor for that would warrent attention Ice for 5-10 minutes TID and activities resume slowly when pain free Chronic pain of both knees 06/16/2020 Assessment & Plan (06/16/2020 9:15 AM MINE EXPLORATION ENGINEER): Getting x-rays today, may consider cortisone injection Acute bilateral low back pain without sciatica 0 12/17/2019 Assessment & Plan (05/17/2023 10:58 AM CDT): We are going to start with a short course of steroids with muscle relaxers, a new x-ray and I printed out home exercises the next step would be physical therapy and if that failed an MRI Assessment & Plan (06/16/2020 9:14 AM MINE EXPLORATION ENGINEER): Declined PT, on medications, will get x-rays Assessment & Plan (12/17/2019 9:48 AM CDT): Exercises, medications, f/u prn Non morbid obesity due to excess calories 2019 Assessment & Plan (11/18/2020 9:26 AM CDT): Diet, exercise and weight loss Assessment & Plan (10/03/2019 1:31 PM CDT): BMI Follow-up includes: exercise counseling and education provided. Essential hypertension 04/25/2019 Assessment & Plan (10/31/2023 3:28 PM CDT): This is a stable chronic condition. Monitor blood pressure, call if out of parameters as we discussed. Low sodium and caffeine diet. baby asa as discussed if applicable. Diet, exercise and weight reduction. Labs as ordered. F/U routine Assessment & Plan (09/19/2023 9:50 AM MINE EXPLORATION ENGINEER): This is a stable chronic condition. Monitor blood pressure, call if out of parameters as we discussed. Low sodium and caffeine diet. baby asa as discussed if applicable. Diet, exercise and weight reduction. Labs as ordered. F/U routine Assessment & Plan (08/08/2023 10:25 AM MINE EXPLORATION ENGINEER): This is a stable chronic condition. Monitor blood pressure, call if out of parameters as we discussed. Low sodium and caffeine diet. baby asa as discussed if applicable. Diet, exercise and weight reduction. Labs as ordered. F/U routine Assessment & Plan (05/17/2023 10:58 AM CDT): This is a stable chronic condition. Monitor blood pressure, call if out of parameters as we discussed. Low sodium and caffeine diet. baby asa as discussed if applicable. Diet, exercise and weight reduction. Labs as ordered. F/U routine Assessment & Plan (02/16/2023 11:05 AM CDT): Not well controlled am increasing his medication he is going to monitor his blood pressures and update me in a few weeks Assessment & Plan (08/03/2022 9:08 AM MINE EXPLORATION ENGINEER): Images from the original note were not included. This is a stable chronic condition. Monitor blood pressure, call if out of parameters as we discussed. Low sodium and caffeine diet. baby asa as discussed if applicable. Diet, exercise and weight reduction. Labs as ordered. F/U routine Assessment & Plan (06/28/2022 1:47 PM MINE EXPLORATION ENGINEER): Monitor home BP daily off verapamil If consistently elevated, patient instructed to notify his PCP Assessment & Plan (03/14/2022 11:00 AM CDT): Images from the original note were not included. This is a stable chronic condition. Monitor blood pressure, call if out of parameters as we discussed. Low sodium and caffeine diet. baby asa as discussed if applicable. Diet, exercise and weight reduction. Labs as ordered. F/U routine Assessment & Plan (02/15/2022 4:34 AM CDT): Continue home losartan Assessment & Plan (01/31/2022 10:35 AM CDT): Images from the original note were not included. This is a stable chronic condition. Monitor blood pressure, call if out of parameters as we discussed. Low sodium and caffeine diet. baby asa as discussed if applicable. Diet, exercise and weight reduction. Labs as ordered. F/U routine Assessment & Plan (11/18/2021 8:38 AM CDT): Images from the original note were not included. This is a stable chronic condition. Monitor blood pressure, call if out of parameters as we discussed. Low sodium and caffeine diet. baby asa as discussed if applicable. Diet, exercise and weight reduction. Labs as ordered. F/U routine Assessment & Plan (06/02/2021 7:37 AM MINE EXPLORATION ENGINEER): This is a stable chronic condition. Monitor blood pressure, call if out of parameters as we discussed. Low sodium and caffeine diet. baby asa as discussed if applicable. Diet, exercise and weight reduction. Labs as ordered. F/U routine Assessment & Plan (03/31/2021 7:26 AM CDT): Images from the original note were not included. This is a stable chronic condition. Monitor blood pressure, call if out of parameters as we discussed. Low sodium and caffeine diet. baby asa as discussed if applicable. Diet, exercise and weight reduction. Labs as ordered. F/U routine Assessment & Plan (03/09/2021 2:10 PM CDT): Images from the original note were not included. This is a stable chronic condition. Monitor blood pressure, call if out of parameters as we discussed. Low sodium and caffeine diet. baby asa as discussed if applicable. Diet, exercise and weight reduction. Labs as ordered. F/U routine Assessment & Plan (11/18/2020 9:25 AM CDT): Images from the original note were not included. This is a stable chronic condition. Monitor blood pressure, call if out of parameters as we discussed. Low sodium and caffeine diet. baby asa as discussed if applicable. Diet, exercise and weight reduction. Labs as ordered. F/U routine Assessment & Plan (06/16/2020 9:15 AM MINE EXPLORATION ENGINEER): Images from the original note were not included. This is a stable chronic condition. Monitor blood pressure, call if out of parameters as we discussed. Low sodium and caffeine diet. baby asa as discussed if applicable. Diet, exercise and weight reduction. Labs as ordered. F/U routine Assessment & Plan (12/17/2019 9:44 AM CDT): Stop lisinopril and start HCTZ low dose, chem-7 2 weeks Assessment & Plan (10/14/2019 3:28 PM CDT): Images from the original note were not included. This is a stable chronic condition. Monitor blood pressure, call if out of parameters as we discussed. Low sodium and caffeine diet. baby asa as discussed if applicable. Diet, exercise and weight reduction. Labs as ordered. F/U routine Assessment & Plan (06/07/2019 3:34 PM MINE EXPLORATION ENGINEER): BP 144/92 sitting, 130/82 standing Patient desires to increase lisinopril given elevated outpatient numbers, increased to 20mg Check BP at nurse visit in 2 weeks and BMP Given handout on DASH diet Vitamin D deficiency 09/24/2018 Assessment & Plan (09/19/2023 9:50 AM MINE EXPLORATION ENGINEER): Continue vitamin-D Assessment & Plan (08/08/2023 10:25 AM MINE EXPLORATION ENGINEER): Continue taking vitamin-D Assessment & Plan (05/17/2023 10:59 AM CDT): Continue vitamin-D Assessment & Plan (02/16/2023 11:06 AM CDT): Continue vitamin-D Assessment & Plan (08/03/2022 9:08 AM MINE EXPLORATION ENGINEER): CPM Assessment & Plan (11/18/2021 8:39 AM CDT): Please start taking Assessment & Plan (06/02/2021 7:37 AM MINE EXPLORATION ENGINEER): Continue vitamin-D Assessment & Plan (11/18/2020 9:26 AM CDT): CPM Assessment & Plan (09/23/2020 4:59 PM MINE EXPLORATION ENGINEER): Continue current medications Assessment & Plan (10/14/2019 3:28 PM CDT): Continue current dose of meds Osteoarthritis, localized, knee 09/18/2017 Derangement of medial meniscus of right knee Assessment & Plan (11/18/2021 8:38 AM CDT): Had surgery, overall well Reflux gastritis 04/20/2017 Assessment & Plan (03/14/2022 11:00 AM CDT): Images from the original note were not included. Avoid spicy, fried, greasy foods Keep hydrated with clear liquids Elevate HOB 2- 3 inches Avoid or cut down on caffeines, chocolates, and ETOH No late meals, or heavy meals after 7 pm Reg daily exercise No tight fitting clothing Stop smoking - if smoker Watch for worsening symptoms - ie diarrhea, vomiting, nausea, blood per rectum, vomiting up blood ,fever, arthralgias, rash etc. RTC prn or if new symptoms arise Pt or parent verbalizes understanding Assessment & Plan (09/23/2020 4:59 PM MINE EXPLORATION ENGINEER): Images from the original note were not included. Avoid spicy, fried, greasy foods Keep hydrated with clear liquids Elevate HOB 2- 3 inches Avoid or cut down on caffeines, chocolates, and ETOH No late meals, or heavy meals after 7 pm Reg daily exercise No tight fitting clothing Stop smoking - if smoker Watch for worsening symptoms - ie diarrhea, vomiting, nausea, blood per rectum, vomiting up blood ,fever, arthralgias, rash etc. RTC prn or if new symptoms arise Pt or parent verbalizes understanding Assessment & Plan (12/17/2019 9:45 AM CDT): Uncontrolled, had EGD, failed nexium and prilosec, CPM but increase prevacid to bid Assessment & Plan (10/14/2019 3:28 PM CDT): Images from the original note were not included. Avoid spicy, fried, greasy foods Keep hydrated with clear liquids Elevate HOB 2- 3 inches Avoid or cut down on caffeines, chocolates, and ETOH No late meals, or heavy meals after 7 pm Reg daily exercise No tight fitting clothing Stop smoking - if smoker Watch for worsening symptoms - ie diarrhea, vomiting, nausea, blood per rectum, vomiting up blood ,fever, arthralgias, rash etc. RTC prn or if new symptoms arise Pt or parent verbalizes understanding Annual physical exam 02/08/2016 Assessment & Plan (11/18/2021 8:39 AM CDT): HEALTHCARE MAINTENANCE updated Assessment & Plan (06/02/2021 7:36 AM MINE EXPLORATION ENGINEER): Healthcare maintenance updated, screening labs ordered, healthy diet exercise and weight reduction. Dysmetabolic syndrome X 02/08/2016 Assessment & Plan (10/31/2023 3:28 PM CDT): Healthy diet exercise and weight reduction Assessment & Plan (09/19/2023 9:50 AM MINE EXPLORATION ENGINEER): Healthy diet exercise and weight reduction Assessment & Plan (03/14/2022 11:00 AM CDT): Diet as controlled Assessment & Plan (01/31/2022 10:35 AM CDT): Healthy diet and exercise Assessment & Plan (11/18/2021 8:38 AM CDT): Healthy diet and exercise Assessment & Plan (06/02/2021 7:37 AM MINE EXPLORATION ENGINEER): Healthy diet exercise and weight reduction, labs as ordered Assessment & Plan (03/31/2021 7:25 AM CDT): Diet controlled Assessment & Plan (11/18/2020 9:25 AM CDT): Diet and exercise Assessment & Plan (09/23/2020 4:59 PM MINE EXPLORATION ENGINEER): Diet exercise and weight reduction will continue to follow Assessment & Plan (06/16/2020 9:15 AM MINE EXPLORATION ENGINEER): Healthy diet and exercise Assessment & Plan (10/14/2019 3:28 PM CDT): Healthy diet and weight loss, labs as ordered Mixed hyperlipidemia 02/08/2016 Assessment & Plan (10/31/2023 3:28 PM CDT): Patient is to continue present medications, work on diet and exercise as discussed, we did discuss the medications and potential side effects and signs and symptoms that would warrant calling office. Follow up routine. Assessment & Plan (09/19/2023 9:50 AM MINE EXPLORATION ENGINEER): Patient is to continue present medications, work on diet and exercise as discussed, we did discuss the medications and potential side effects and signs and symptoms that would warrant calling office. Follow up routine. Assessment & Plan (08/08/2023 10:25 AM MINE EXPLORATION ENGINEER): Patient is to continue present medications, work on diet and exercise as discussed, we did discuss the medications and potential side effects and signs and symptoms that would warrant calling office. Follow up routine. Assessment & Plan (05/17/2023 10:58 AM CDT): Patient is to continue present medications, work on diet and exercise as discussed, we did discuss the medications and potential side effects and signs and symptoms that would warrant calling office. Follow up routine. Assessment & Plan (02/16/2023 11:05 AM CDT): Patient is to continue present medications, work on diet and exercise as discussed, we did discuss the medications and potential side effects and signs and symptoms that would warrant calling office. Follow up routine. Assessment & Plan (08/03/2022 9:08 AM MINE EXPLORATION ENGINEER): Diet controlled Assessment & Plan (03/14/2022 11:00 AM CDT): Patient is to continue present medications, work on diet and exercise as discussed, we did discuss the medications and potential side effects and signs and symptoms that would warrant calling office. Follow up routine. Assessment & Plan (02/15/2022 4:35 AM CDT): Previously refused statin offered by PCP. Currently watching diet and regular exercise. Assessment & Plan (01/31/2022 10:35 AM CDT): Patient is to continue present medications, work on diet and exercise as discussed, we did discuss the medications and potential side effects and signs and symptoms that would warrant calling office. Follow up routine. Assessment & Plan (11/18/2021 8:38 AM CDT): healthy diet and weight loss Assessment & Plan (06/02/2021 7:37 AM MINE EXPLORATION ENGINEER): Healthy diet exercise and labs as ordered Assessment & Plan (03/31/2021 7:26 AM CDT): Diet controlled Assessment & Plan (11/18/2020 9:26 AM CDT): Patient is to continue present medications, work on diet and exercise as discussed, we did discuss the medications and potential side effects and signs and symptoms that would warrant calling office. Follow up routine. Assessment & Plan (09/23/2020 4:59 PM MINE EXPLORATION ENGINEER): Diet exercise weight reduction and will continue to follow labs at next visit Assessment & Plan (06/16/2020 9:15 AM MINE EXPLORATION ENGINEER): Patient is to continue present medications, work on diet and exercise as discussed, we did discuss the medications and potential side effects and signs and symptoms that would warrant calling office. Follow up routine. Assessment & Plan (12/17/2019 9:44 AM CDT): Patient is to continue present medications, work on diet and exercise as discussed, we did discuss the medications and potential side effects and signs and symptoms that would warrant calling office. Follow up routine. Assessment & Plan (10/14/2019 3:28 PM CDT): Patient is to continue present medications, work on diet and exercise as discussed, we did discuss the medications and potential side effects and signs and symptoms that would warrant calling office. Follow up routine. Acid reflux Assessment & Plan (02/21/2022 9:18 AM CDT): Not controlled, changing to nexium and stopping dexilant Assessment & Plan (02/15/2022 4:33 AM CDT): - Continue home famotidine and PPI Assessment & Plan (11/18/2021 8:47 AM CDT): This is not controlled, continue current meds work on diet I am going to get him scheduled for an EGD Assessment & Plan (06/02/2021 7:37 AM MINE EXPLORATION ENGINEER): We discussed the importance of diet and taking his medicine every day if signs and symptoms persist we will need an EGD Assessment & Plan (03/31/2021 7:25 AM CDT): Adding pepcid 40 in evening Assessment & Plan (03/09/2021 2:10 PM CDT): I am going to start with getting back on medications, if cough does not resolve will get cxr Cough Assessment & Plan (02/01/2024 11:38 AM CDT): I have ordered a chest x-ray. The patient denies for pulmonary function test at this time. Assessment & Plan (03/31/2021 7:25 AM CDT): gerd suspected but could be ARB, increasing medications for gerd and getting CXR, may consider changing dexilant or ARB Assessment & Plan (03/09/2021 2:11 PM CDT): Suspect GERD, start medications, next step CXR Resolved Problems Problem Noted Date Diagnosed Date Resolved Date Snoring 03/24/2022 08/01/2022 Assessment & Plan (03/24/2022 2:25 PM CDT): Due to the snoring and hypersomnia and possible history of obstructive sleep apnea, I have recommended the patient complete a nocturnal polysomnogram split night protocol no MSLT. The patient and I also discussed an in-home nocturnal polysomnogram as an option. Both procedures were detailed in depth. Patient is agreeable. Thyroid nodule 01/31/2022 02/15/2022 Assessment & Plan (02/15/2022 4:39 AM CDT): Seen incidentally on cardiac pet scan. - Get TSH and free T4 Assessment & Plan (01/31/2022 10:34 AM CDT): Seen on PET scan, getting PET scan Elevated lipids 10/09/2018 10/14/2019 Encounters Date Type Department Care Team Description 08/13/2024 8:45 AM MINE EXPLORATION ENGINEER Office Visit [facility] [address] [id number] Sofya Howell NP Obstructive sleep apnea syndrome (Primary Dx); PLMD (periodic limb movement disorder) from Last 3 Months Immunizations Immunization Administration Dates Next Due Influenza, Unspecified 07/08/2023(Deferr ed: Patient decision),05/17/2023(Deferred: Patient decision),04/22/2023(Deferred: Patient decision),04/22/2023(Deferred: Patient decision),06/03/2022(Deferred: Patient Refused),05/17/2022(Deferred: Patient decision),06/03/2021(Deferred: Patient Refused),06/02/2021(Deferred: Patient Refused),05/24/2021(Deferred: Patient Refused),10/03/2019(Deferred: Patient Refused) Gigaclear (J&J) SARS-CoV-2 Vaccination 09/18/2020 Pfizer SARS-CoV-2 Monovalent Vaccination (12+ Yrs) PURPLE 06/06/2021 Tdap 11/12/2007 ZOSTER Recombinant 09/17/2021,05/24/2021 Surgical History Surgery Date Site/Laterality Comments MENISCUS SURGERY right knee KNEE ARTHROSCOPY Left CARDIAC CATHETERIZATION 01/14/2022 - 02/13/2022 OTHER SURGICAL HISTORY 07/17/2021 - 07/16/2022 heart ablation Medical History Medical History Date Comments Anxiety Abnormal LFTs Dysmetabolic syndrome Acid reflux Hyperlipidemia Vitamin D deficiency Sleep apnea [place] (ventricular tachycardia) ([facility]) 2022 Arthritis 2010 Hypertension 2019 Family History Medical History Relation Name Comments Diabetes Father Shai Groves Hypertension Father Shai Groves Stroke Father Shai Groves Diabetes Mother Anesthesia problems Neg Hx Heart disease Neg Hx Parkinsonism Neg Hx Relation Name Status Comments Father Shai Groves (Age 82) Mother (Age 82) Social History Tobacco Use Types Packs/Day Years Used Date Smoking Tobacco: Never Smokeless Tobacco: Never Tobacco Cessation:Counseling Given: Not Answered Alcohol Use Standard Drinks/Week Comments Yes 0 (1 standard drink = 0.6 oz pur e alcohol) social AUDIT-C Answer Date Recorded Q1: How often do you have a drink containing alcohol? Never 01/22/2024 Q2: How many drinks containi ng alcohol do you have on a typical day when you are drinking? Patient does not drink Q3: How often do you have si x or more drinks on one occasion? Never 01/22/2024 PHQ-2 Answer Date Recorded PHQ-2 Total Score (If total score is 3 or more points, staff should administer the PHQ-9) 0 02/16/2023 Personal Safety Answer Date Recorded Have you ever been in or are you currently in a harmful physical or emotional relationship or is someone making you feel afraid or unsafe? Denies 01/22/2024 Sex and Gender Information Value Date Recorded Sex Assigned at Not on file Legal Sex Male 2:00 AM MINE EXPLORATION ENGINEER Gender Identity Male 10/14/2019 2:17 PM CDT Sexual Orientation Straight 10/14/2019 2: 17 PM CDT Obstetrics History Last Filed Vital Signs Vital Sign Reading Time Taken Comments Blood Pressure 134/80 08/13/2024 8:41 AM MINE EXPLORATION ENGINEER Pulse 73 08/13/2024 8:41 AM MINE EXPLORATION ENGINEER Temperature 36.8 C (98.2 F) 08/13/2024 8:41 AM MINE EXPLORATION ENGINEER Respiratory Rate 18 08/13/2024 8:41 AM MINE EXPLORATION ENGINEER Oxygen Saturation 96% 08/13/2024 8:41 AM MINE EXPLORATION ENGINEER Inhaled Oxygen Concentration - - Weight 116.1 kg (256 lb) 08/13/2024 8:41 AM MINE EXPLORATION ENGINEER Height 180.3 cm (5' 11 ) 08/13/2024 8:41 AM MINE EXPLORATION ENGINEER Body Mass Index 35.7 08/13/2024 8:41 AM MINE EXPLORATION ENGINEER Plan of Treatment Health Maintenance Due Date Last Done Comments Hepatitis B Screening 1981 DTaP/Tdap/Td Vaccine (2 - Td or Tdap) 11/11/2017 11/12/2007 Regular Well Visit/Exam 18-64 11/18/2022 11/18/2021, 06/02/2021 Depression Screening 02/17/2024 02/16/2023, 11/18/2021, 06/16/2020, Additional history exists Covid-19 Vaccine ( season) 2024 06/06/2021, 09/18/2020 Influenza Vaccine (#1) 2024 Prostate Cancer Screening-PSA 07/27/2024 07/27/2022, 06/02/2021, 06/16/2020, Additional history exists Colon Cancer Screening-Colonoscopy 12/07/2028 12/07/2018 Colon Cancer Screening-CT Colonography Discontinued 12/07/2018 Colon Cancer Screening-DNA Stool Discontinued 12/07/2018 Colon Cancer Screening-FIT Discontinued 12/07/2018 Colon Cancer Screening-Sigmoidoscopy Discontinued 12/07/2018 Hepatitis C Screening Completed 04/15/2019 Zoster Vaccine Completed 09/17/2021, 05/24/2021 Pneumococcal vaccine <65 Aged Out No longer eligible based on patient's age to complete this topic Medical Devices Implanted Type Area Cardiology Nurse Practitioner Device Identifier Shelf Expiration Date Model / Serial / Lot [employer] Vascade Mvp 6-12fr Venous Closure [id number] - [id number] Implanted:Qty: 1 on 2022 by George Valenzuela MD at [facility] Collagen Right: Groin [employer] 07/16/2025 800-612C -[id number] / / [id number] [employer] Vascade Mvp 6-12fr Venous Closure [id number] - [id number] Implanted:Qty: 1 on 2022 by George Valenzuela MD at [facility] Collagen Right: Groin [employer] 07/16/2025 800-612C -[id number] / / [id number] [employer] Vascade Mvp 6-12fr Venous Closure [id number] - [id number] Implanted:Qty: 1 on 2022 by George Valenzuela MD at [facility] Collagen Left: Groin [employer] 11/03/2023 800-612C -[id number] / / [id number] [employer] Vascade Mvp 6-12fr Venous Closure [id number] - [id number] Implanted:Qty: 1 on 2022 by George Valenzuela MD at [facility] Collagen Left: Groin [employer] 11/03/2023 800-612C -[id number] / / [id number] [employer] Monitor Jot Dx Insertable Cardiac [id number] - [id number] - [id number] Implanted:Qty: 1 on 01/28/2022 by George Valenzuela MD at [facility] Implantable Loop Recorder N/A: Chest [facility] 12/07/2022 [id number] / [id number] / Procedures Procedure Name Priority Date/Time Associated Diagnosis Comments PSA SCREEN Routine 07/27/2022 9:23 AM MINE EXPLORATION ENGINEER Mixed hyperlipidemia Essential hypertension Benign prostatic hyperplasia with urinary frequency HEPATITIS C RNA, QUANTITATIVE, NAAT Routine 04/15/2019 10:28 AM CDT COLONOSCOPY Routine 12/07/2018 from Last 3 Months or Most Recently Relevant to Health Maintenance Results * PSA screen (07/27/2022 9:23 AM MINE EXPLORATION ENGINEER) PSA-Total 0.58 <=3.90 ng/mL [facility] PEREY[facility] Comment: Interpretive Data AGE SEX REFERENCE INTERVAL 0 minutes-150 years Female None 0 minutes-49 years Male None 50-59 years Male 0-3.90 60-69 years Male 0-5.40 70-79 years Male 0-6.20 80-150 years Male 0-6.20 The Carolyn PSA Total assay procedure was used. Results from different manufacturers or methods may not be comparable. Serial testing should be performed using the same method. Current interpretive data last revised 21. Testing performed by: [facility], [address] [place] [address]., [id number] Blood 07/27/2022 9:23 AM MINE EXPLORATION ENGINEER 07/27/2022 10:44 AM MINE EXPLORATION ENGINEER us Abdoulaye JAMES LAB BLOOD ORDERABLES Final Resu lt [facility] [address] [facility] Department [place] [address] * Hepatitis C RNA, Quantitative, NAAT (04/15/2019 10:28 AM CDT) HCV RNA IU/mL Not Detected IU/mL [facility] HCV RNA log IU/mL Not Detected log IU/mL [facility] HCV quant by NAAT interp Not Detected Not Detected [facility] Comment: INTERPRETIVE INFORMATION: HCV by Quantitative NAAT Normal range for this assay is Not Detected . The quantitative range of this assay is 10 - 100,000,000 IU/mL (1.0 - 8.0 log IU/mL). Lower limit of quantitation (LLoQ): 10 IU/mL (1.0 log IU/mL) LLoQ values do not apply to diluted specimens. A result of Not Detected does not rule out the presence of inhibitors in the patient specimen or hepatitis C virus RNA concentrations below the level of detection of the test. Care should be taken when interpreting any single viral load determination. This test should not be used for blood donor screening, associated re-entry protocols, or for screening Human Cell, Tissues and Cellular Tissue-Based Products (HCT/P). Performed by [facility], [address] [place] [id number] [email or web address], Rajiv Urban MD, Lab. Director 04/15/2019 10:2 8 AM CDT 04/15/2019 10:42 AM CDT Narrative Resulting Agency Comment CLI Abdoulaye JAMES LAB BLOOD ORDERABLES Final Resu lt [facility] [address] [place] [address], [facility] [phone] * Colonoscopy (12/07/2018) Anatomical Region Laterality Modality Other Historical Provider ENDOSCOPY PROCEDURES Tameka l Result from Last 3 Months or Most Recently Relevant to Health Maintenance Insurance [facility] ACCESS CHOICE Advance Directives For more information, please contact: [phone] * Full Code (Latest Code Status on File) Date Activated Date Inactivated Comments 01/22/2024 2:46 PM 01/22/2024 7:47 PM * Full Code Date Activated Date Inactivated Comments 2022 8:22 PM 02/15/2022 3:51 PM * Full Code Date Activated Date Inactivated Comments 01/13/2022 6:32 PM 01/28/2022 10:45 PM Care Teams Drug Safety Data Management Specialist Relationship Specialty Start Date End Date Abdoulaye Britt PA PCP - General Family Medicine 04/15/19
--- OUTSIDE RECORDS SUMMARY | 2024-09-08 08:18 | XMS_ITS | Continuity of Care Document ---
Author Organization [facility] Address [address] [place] [address] [address] [place] [address] Phone Care Team Providers Care Assistant Financial Accountant Name Role Phone Teresa Zavala PT Unavailable [...] Diagnoses Date Provider Providers Copied on Encounter [facility], [address] [place], [place] [address], [place], [place], [id number], tel:[phone] [place] No Information Muehl Teresa. [address] [facility], [address], [place], [place], [facility], [place]. tel:[phone], [place], [place], [id number], tel:[phone] [place] No Information Muehl Teresa. [address] [place] [address], [address], [place], [place], [facility], [place]. tel:[phone], [place], [place], [id number], tel:[phone] [place] No Information Muehl Teresa. [address] [place] [address], [address], [place], [place], [facility], [place]. tel:[phone], [place], [place], [id number], [place] tel:[phone] [place] No Information Muehl Teresa. [address] [place] [address], [address], [place], [place], [facility], [place]. tel:[phone], [place], [place], [id number], tel:[phone] [place] No Information Muehl Teresa. [address] [facility], [address], [place], [place], [facility], [place]. tel:[phone], [place], [place], [id number], tel:[phone] [place] No Information Muehl Teresa. [address] [facility], [address], [place], [place], [facility], . tel:[phone], [place], [place], [id number], [place] tel:[phone] [facility] Lucas Moore. [address] [facility], [address], [place], [address], [place]. tel:[phone] Family History Family Member Type Diagnosis Age At Onset No Information Payers Payer name Insurance type Covered libertarian ID Authornasrina harperjosefa(s) [facility] [id number] Social History Type Description Quantity Date Captured [...]
--- OUTSIDE RECORDS SUMMARY | 2024-09-08 08:18 | XMS_ITS | Referral Summary ---
Author Organization [facility] Building Address [address] [place] [address] Care Team Providers Care Stogy Maker Name Role Phone Abdoulaye Britt Primary Care Provider [phone] Encounters Date Type Department Care Team Description 08/13/2024 8:45 AM TITLE OFFICER Office Visit [facility] [place] [address] [address] [facility] [address] [place] [address] Sofya Howell NP Obstructive sleep apnea syndrome (Primary Dx); PLMD (periodic limb movement disorder) from Last 3 Months Allergies No known active allergies Medications magnesium [...] 08/08/2023 Assessment & Plan (09/19/2023 9:51 AM TITLE OFFICER): This is stable chronic condition with no SI HI we are going to continue current medication patient does want to try to come off it in the spring as he feels he has seasonal affective disorder we discussed proper tapering mechanism he will keep me in the Assessment & Plan (08/08/2023 10:26 AM TITLE OFFICER): Images from the original note were not [...] 3 Assessment & Plan (08/13/2024 8:58 AM TITLE OFFICER): Asymptomatic Assessment & Plan (02/01/2024 11:39 AM CDT): The patient denies that his limbs are moving at night when he sleeps Assessment & Plan (09/19/2023 9:51 AM TITLE OFFICER): This a stable chronic condition will continue to follow Assessment & Plan (05/17/2023 10:59 AM CDT): This is improved with magnesium will continue to follow Assessment & Plan (02/16/2023 11:06 AM CDT): Continue magnesium and exercise Assessment & Plan (01/30/2023 10:35 AM CDT): Asymptomatic Assessment & Plan (08/03/2022 9:08 AM TITLE OFFICER): Continue mg Assessment & Plan (08/01/2022 11:25 AM TITLE OFFICER): Currently asymptomatic. I have ordered an iron and ferritin level. The BUN and creatinine on July 27, 2022 was BUN 19 and creatinine 0.7 Obstructive sleep apnea syndrome 02/21/2022 Assessment & Plan (08/13/2024 8:59 AM TITLE OFFICER): Due to ongoing symptoms, the patient will [...] [employer]. Assessment & Plan (09/19/2023 9:51 AM TITLE OFFICER): Continue CPAP Assessment & Plan (05/17/2023 10:59 [...] [employer] Assessment & Plan (08/03/2022 9:08 AM TITLE OFFICER): Controlled with c-pap Assessment & Plan (08/01/2022 11:24 AM TITLE OFFICER): Due to the patient being intolerant of optimal pressure of 18 cm water pressure, Patient will continue CPAP therapy at 14 cm water pressure. Denied need for supplies. [facility] [employer] VT (ventricular tachycardia) 2022 Assessment & Plan (06/28/2022 1:46 PM TITLE OFFICER): VT s/p VT ablation 2022 - Dr. [...] 12/17 Assessment & Plan (09/19/2023 9:51 AM TITLE OFFICER): This is a stable chronic condition patient is asymptomatic will continue to follow Assessment & Plan (08/08/2023 10:25 AM TITLE OFFICER): Patient has been stable since he had an ablation Assessment & Plan (05/17/2023 10:59 AM CDT): This is stable and patient is followed by cardiology, continue current medications follow-up routine Assessment & Plan (02/16/2023 11:05 AM CDT): Patient is seen Cardiology and well controlled with beta-blockers will continue to follow Assessment & Plan (08/03/2022 9:08 AM TITLE OFFICER): Well controlled Assessment & Plan (02/15/2022 2:12 PM CDT): Presented to OSH with chest tightness and found to have a HR in 200s. EKG suggestive of VT. Resolved with amiodarone and metopralol. Patient was then transferred to [facility] on 01/13/2022. Echocardiogram with EF 59%, [facility] with no CAD. Patient was eventually discharged [...] 06/02/2021 Assessment & Plan (09/19/2023 9:50 AM TITLE OFFICER): This is a stable chronic condition will continue to follow Assessment & Plan (08/08/2023 10:25 AM TITLE OFFICER): Currently controlled with no meds will continue to follow Assessment & Plan (05/17/2023 10:58 AM CDT): This is stable will continue to follow Assessment & Plan (02/16/2023 11:05 AM CDT): Currently Assessment & Plan (08/03/2022 9:07 AM TITLE OFFICER): controlled Assessment & Plan (06/02/2021 7:37 AM TITLE OFFICER): This is new an uncontrolled, we discussed [...] follow Assessment & Plan (09/23/2020 5:00 PM TITLE OFFICER): Images from the original note were not [...] 06/16/2020 Assessment & Plan (06/16/2020 9:15 AM TITLE OFFICER): Getting x-rays today, may consider cortisone injection [...] MRI Assessment & Plan (06/16/2020 9:14 AM TITLE OFFICER): Declined PT, on medications, will get x-rays [...] routine Assessment & Plan (09/19/2023 9:50 AM TITLE OFFICER): This is a stable chronic condition. Monitor blood pressure, call if out of parameters as we discussed. Low sodium and caffeine diet. baby asa as discussed if applicable. Diet, exercise and weight reduction. Labs as ordered. F/U routine Assessment & Plan (08/08/2023 10:25 AM TITLE OFFICER): This is a stable chronic condition. Monitor [...] weeks Assessment & Plan (08/03/2022 9:08 AM TITLE OFFICER): Images from the original note were not included. This is a stable chronic condition. Monitor blood pressure, call if out of parameters as we discussed. Low sodium and caffeine diet. baby asa as discussed if applicable. Diet, exercise and weight reduction. Labs as ordered. F/U routine Assessment & Plan (06/28/2022 1:47 PM TITLE OFFICER): Monitor home BP daily off verapamil If [...] routine Assessment & Plan (06/02/2021 7:37 AM TITLE OFFICER): This is a stable chronic condition. Monitor [...] routine Assessment & Plan (06/16/2020 9:15 AM TITLE OFFICER): Images from the original note were not [...] routine Assessment & Plan (06/07/2019 3:34 PM TITLE OFFICER): BP 144/92 sitting, 130/82 standing Patient desires to increase lisinopril given elevated outpatient numbers, increased to 20mg Check BP at nurse visit in 2 weeks and BMP Given handout on DASH diet Vitamin D deficiency 09/24/2018 Assessment & Plan (09/19/2023 9:50 AM TITLE OFFICER): Continue vitamin-D Assessment & Plan (08/08/2023 10:25 AM TITLE OFFICER): Continue taking vitamin-D Assessment & Plan (05/17/2023 10:59 AM CDT): Continue vitamin-D Assessment & Plan (02/16/2023 11:06 AM CDT): Continue vitamin-D Assessment & Plan (08/03/2022 9:08 AM TITLE OFFICER): CPM Assessment & Plan (11/18/2021 8:39 AM CDT): Please start taking Assessment & Plan (06/02/2021 7:37 AM TITLE OFFICER): Continue vitamin-D Assessment & Plan (11/18/2020 9:26 AM CDT): CPM Assessment & Plan (09/23/2020 4:59 PM TITLE OFFICER): Continue current medications Assessment & Plan (10/14/2019 [...] understanding Assessment & Plan (09/23/2020 4:59 PM TITLE OFFICER): Images from the original note were not [...] updated Assessment & Plan (06/02/2021 7:36 AM TITLE OFFICER): Healthcare maintenance updated, screening labs ordered, healthy diet exercise and weight reduction. Dysmetabolic syndrome X 02/08/2016 Assessment & Plan (10/31/2023 3:28 PM CDT): Healthy diet exercise and weight reduction Assessment & Plan (09/19/2023 9:50 AM TITLE OFFICER): Healthy diet exercise and weight reduction Assessment & Plan (03/14/2022 11:00 AM CDT): Diet as controlled Assessment & Plan (01/31/2022 10:35 AM CDT): Healthy diet and exercise Assessment & Plan (11/18/2021 8:38 AM CDT): Healthy diet and exercise Assessment & Plan (06/02/2021 7:37 AM TITLE OFFICER): Healthy diet exercise and weight reduction, labs as ordered Assessment & Plan (03/31/2021 7:25 AM CDT): Diet controlled Assessment & Plan (11/18/2020 9:25 AM CDT): Diet and exercise Assessment & Plan (09/23/2020 4:59 PM TITLE OFFICER): Diet exercise and weight reduction will continue to follow Assessment & Plan (06/16/2020 9:15 AM TITLE OFFICER): Healthy diet and exercise Assessment & Plan [...] routine. Assessment & Plan (09/19/2023 9:50 AM TITLE OFFICER): Patient is to continue present medications, work on diet and exercise as discussed, we did discuss the medications and potential side effects and signs and symptoms that would warrant calling office. Follow up routine. Assessment & Plan (08/08/2023 10:25 AM TITLE OFFICER): Patient is to continue present medications, work [...] routine. Assessment & Plan (08/03/2022 9:08 AM TITLE OFFICER): Diet controlled Assessment & Plan (03/14/2022 11:00 [...] loss Assessment & Plan (06/02/2021 7:37 AM TITLE OFFICER): Healthy diet exercise and labs as ordered Assessment & Plan (03/31/2021 7:26 AM CDT): Diet controlled Assessment & Plan (11/18/2020 9:26 AM CDT): Patient is to continue present medications, work on diet and exercise as discussed, we did discuss the medications and potential side effects and signs and symptoms that would warrant calling office. Follow up routine. Assessment & Plan (09/23/2020 4:59 PM TITLE OFFICER): Diet exercise weight reduction and will continue to follow labs at next visit Assessment & Plan (06/16/2020 9:15 AM TITLE OFFICER): Patient is to continue present medications, work [...] EGD Assessment & Plan (06/02/2021 7:37 AM TITLE OFFICER): We discussed the importance of diet and [...] getting PET scan Elevated lipids 10/09/2018 10/14/2019 Immunizations Immunization Administration Dates Next Due Influenza, Unspecified 07/08/2023(Deferr ed: Patient decision),05/17/2023(Deferred: Patient decision),04/22/2023(Deferred: Patient decision),04/22/2023(Deferred: Patient decision),06/03/2022(Deferred: Patient Refused),05/17/2022(Deferred: Patient decision),06/03/2021(Deferred: Patient Refused),06/02/2021(Deferred: Patient Refused),05/24/2021(Deferred: Patient Refused),10/03/2019(Deferred: Patient Refused) HydroLogex (J&J) SARS-CoV-2 Vaccination 09/18/2020 Pfizer SARS-CoV-2 Monovalent Vaccination (12+ Yrs) PURPLE 06/06/2021 Tdap 11/12/2007 ZOSTER Recombinant 09/17/2021,05/24/2021 Social History Tobacco Use Types Packs/Day Years [...] on file Legal Sex Male 2:00 AM TITLE OFFICER Gender Identity Male 10/14/2019 2:17 PM CDT Sexual Orientation Straight 10/14/2019 2: 17 PM CDT Last Filed Vital Signs Vital Sign Reading Time Taken Comments Blood Pressure 134/80 08/13/2024 8:41 AM TITLE OFFICER Pulse 73 08/13/2024 8:41 AM TITLE OFFICER Temperature 36.8 C (98.2 F) 08/13/2024 8:41 AM TITLE OFFICER Respiratory Rate 18 08/13/2024 8:41 AM TITLE OFFICER Oxygen Saturation 96% 08/13/2024 8:41 AM TITLE OFFICER Inhaled Oxygen Concentration - - Weight 116.1 kg (256 lb) 08/13/2024 8:41 AM TITLE OFFICER Height 180.3 cm (5' 11 ) 08/13/2024 8:41 AM TITLE OFFICER Body Mass Index 35.7 08/13/2024 8:41 AM TITLE OFFICER Plan of Treatment Not on file Medical Devices Implanted Type Area Copier Repair Technician Device Identifier Shelf Expiration Date Model / Serial / Lot [employer] Vascade Mvp 6-12fr Venous Closure [id number] - [id number] Implanted:Qty: 1 on 2022 by George Valenzuela MD at [facility] Collagen Right: Groin [employer] 07/16/2025 800-612C -[id number] / / [id number] [employer] Vascade Mvp 6-12fr Venous Closure [id number] - [id number] Implanted:Qty: 1 on 2022 by George Valenzuela MD at [facility] Collagen Right: Groin [employer] 07/16/2025 800-612C -10U / / [id number] [employer] Vascade Mvp 6-12fr Venous Closure [id number] - [id number] Implanted:Qty: 1 on 2022 by George Valenzuela MD at [facility] Collagen Left: Groin [employer] 11/03/2023 800-612C -10U / / [id number] [employer] Vascade Mvp 6-12fr Venous Closure [id number] - [id number] Implanted:Qty: 1 on 2022 by George Valenzuela MD at [facility] Collagen Left: Groin [employer] 11/03/2023 800-612C -10U / / [id number] [employer] Monitor Jot Dx Insertable Cardiac [id number] - [id number] - [id number] Implanted:Qty: 1 on 01/28/2022 by George Valenzuela MD at [facility] Implantable Loop Recorder N/A: Chest [employer] 12/07/2022 [id number] / [id number] / Procedures Procedure Name Priority Date/Time Associated Diagnosis Comments PSA SCREEN Routine 07/27/2022 9:23 AM TITLE OFFICER Mixed hyperlipidemia Essential hypertension Benign prostatic hyperplasia with urinary frequency HEPATITIS C RNA, QUANTITATIVE, NAAT Routine 04/15/2019 10:28 AM CDT COLONOSCOPY Routine 12/07/2018 from Last 3 Months or Most Recently Relevant to Health Maintenance Results * PSA screen (07/27/2022 9:23 AM TITLE OFFICER) PSA-Total 0.58 <=3.90 ng/mL [facility] Comment: Interpretive Data AGE SEX REFERENCE INTERVAL [...] data last revised 21. Testing performed by: [facility], [address] [place] [address]., [id number] Blood 07/27/2022 9:23 AM TITLE OFFICER 07/27/2022 10:44 AM TITLE OFFICER Abdoulaye JAMES LAB BLOOD ORDERABLES Final Resu lt [facility] [address] [facility] Department [place] [address] * Hepatitis C RNA, Quantitative, NAAT (04/15/2019 10:28 AM CDT) HCV RNA IU/mL Not Detected IU/mL [facility] HCV RNA log IU/mL Not Detected log IU/mL [facility] HCV quant by NAAT interp Not Detected Not Detected [facility] Comment: INTERPRETIVE INFORMATION: HCV by Quantitative NAAT [...] and Cellular Tissue-Based Products (HCT/P). Performed by [facility], [address] [place], [place] [id number] [email or web address], Rajiv Urban MD, Lab. Director 04/15/2019 10:2 8 AM CDT 04/15/2019 10:42 AM CDT Narrative Resulting Agency Comment CLI Abdoulaye JAMES LAB BLOOD ORDERABLES Final Resu lt [facility] [address] [place] [address], [id number] [phone] * Colonoscopy (12/07/2018) Anatomical Region Laterality Modality Other Historical Provider ENDOSCOPY PROCEDURES Tameka l Result from Last 3 Months or Most Recently Relevant to Health Maintenance Insurance ANTH ACCESS CHOICE ANTHEM ACCESS CHOICE Advance Directives For more information, please contact: [phone] * Full Code (Latest Code Status on File) Date Activated Date Inactivated Comments 01/22/2024 2:46 PM 01/22/2024 7:47 PM * Full Code Date Activated Date Inactivated Comments 2022 8:22 PM 02/15/2022 3:51 PM * Full Code Date Activated Date Inactivated Comments 01/13/2022 6:32 PM 01/28/2022 10:45 PM Care Teams Stogy Maker Relationship Specialty Start Date End Date Abdoulaye Brtit PA PCP - General Family Medicine 04/15/19
[2024-09-08 08:25] LABS: Add Urine Microscopic? YES; Appearance Urine Cloudy (Clear); Bacteria Urine None Seen /hpf; Bilirubin Urine Negative (Negative); Blood Urine 1+ (Negative); Color Urine Yellow (Yellow); Glucose Urine UA Negative (Negative); Ketones Urine Negative (Negative); Leukocyte Esterase Ur Negative LEU/UL (Negative); Nitrate Urine Negative (Negative); Non Pathogenic Casts 0-2; Protein Urine Trace mg/dL (Negative); RBC Urine 21-50 /hpf (0-2); Specific Grav Ur 1.016 (1.001-1.035); Squamous Epithelial Cell Urine None Seen /hpf (Few); WBC Urine 0-5 /hpf (0-3)
[2024-09-08 08:31] LABS: Alanine Aminotransferase 63 U/L (6-50); Albumin Level 4.1 g/dL (3.5-5.1); Alkaline Phosphatase 118 U/L (38-126); Anion Gap 9 mmol/L (4-12); Aspartate Amino Transferase 38 U/L (17-59); Blood Urea Nitrogen 12 mg/dL (9-20); Carbon Dioxide 25 mmol/L (22-30); Chloride 106 mmol/L (98-107); Estimated CRCL calculation 131 ml/min; Estimated Glomerular Filt Rate > 60; Glucose 116 mg/dL (65-110); Potassium 3.8 mmol/L (3.4-5.0); Sodium 140 mmol/L (137-145)
[2024-09-08] MEDS: KETOROLAC 15 MG/ML VIAL (*BKC) IV PUSH (09:18)
[2024-09-08] MEDS: TAMSULOSIN HCL 0.4 MG CAPSULE PO (09:56)
[2024-09-08] MEDS: HYDROcodone/acetaminophen (*CRX) 5-325 MG TABLET 1 TAB PO (09:57)
[2024-09-08 10:26] VITALS: BP 148/76; PULSE 80; RESP 16; TEMP 36.8; O2SAT 98
== END 2024-09-08 10:26 | disposition home or self-care (01) ==
PROVIDERS: Emergency Provider Emergency Medicine; PCP Physician Assistant
DX: N13.2 Hydronephrosis with renal and ureteral calculous obstruction (principal); I10 Essential (primary) hypertension; E78.00 Pure hypercholesterolemia, unspecified; K21.9 Gastro-esophageal reflux disease without esophagitis; Z79.82 Long term (current) use of aspirin; Z79.899 Other long term (current) drug therapy
CPT/HCPCS: 36415; 74176; 80053; 81001; 85025; 96361; 96374; 96375; 99284; A9270; J1171; J1885; J7030

== ENCOUNTER 2025-05-21 05:01 | Emergency (ER) | payer BC, SELFPAY ==
[2025-05-21] VITALS (9 sets, daily range): BP systolic 151–191; BP diastolic 88–95; PULSE 66–84; RESP 13–19; O2SAT 94–98
--- NOTE | ~2025-05-21 | XR_ITS ---
Examination: XR chest 1V portable Clinical History: heartburn Comparison: 07/02/2023 Technique: Portable AP Findings: Heart size normal. Chronic elevation right hemidiaphragm. No acute bony abnormality. IMPRESSION: 1. No acute cardiopulmonary findings given portable technique. Reviewed, dictated and finalized at location [facility]. [facility]
--- OUTSIDE RECORDS SUMMARY | 2025-05-21 05:04 | XMS_ITS | Encounter Summary ---
Author Organization [facility] Care Team Providers Care Solution Engineer Name Role Phone Abdoulaye Britt Primary Care Provider [phone] Encounter Details Date Type Department Care Team (Latest Contact Info) Description 08/21/2017 Orders Only [facility] CLINCONV Provider, MD Chen [address] [place] [id number] Social History Tobacco Use Types Packs/Day Years Used Date Smoking Tobacco: Never Assessed Sex and Gender Information Value Date Recorded Sex Assigned at Not on file Legal Sex Male 2:00 AM TITLE CHECKER Gender Identity Male 10/14/2019 2:17 PM CDT Sexual Orientation Straight 10/14/2019 2: 17 PM CDT documented as of this encounter Plan of Treatment Not on file documented as of this encounter Procedures Procedure Name Priority Date/Time Associated Diagnosis Comments PROCEDURE - RESULT 08/21/2017 12 :00 AM TITLE CHECKER documented in this encounter Results * PROCEDURE - RESULT (08/21/2017 12:00 AM TITLE CHECKER) Narrative 08/21/2017 12:00 AM TITLE CHECKER Ordered by an unspecified provider. us Historical Provider Final Res ult documented in this encounter Visit Diagnoses Not on filedocumented in this encounter Care Teams Solution Engineer Relationship Specialty Start Date End Date Abdoulaye Britt PA PCP - General Family Medicine 04/15/19 documented as of this encounter
--- OUTSIDE RECORDS SUMMARY | 2025-05-21 05:04 | XMS_ITS | Clinical Summary ---
Author Organization [facility] Address [address] [place] [address] Care Team Providers Care Stockroom Associate Name Role Phone Abdoulaye Britt Primary Care Provider [phone] Allergies No known active allergies Medications magnesium [...] 08/08/2023 Assessment & Plan (09/19/2023 9:51 AM PASSENGER SERVICE MANAGER): This is stable chronic condition with no SI HI we are going to continue current medication patient does want to try to come off it in the spring as he feels he has seasonal affective disorder we discussed proper tapering mechanism he will keep me in the Assessment & Plan (08/08/2023 10:26 AM PASSENGER SERVICE MANAGER): Images from the original note were not [...] 3 Assessment & Plan (08/13/2024 8:58 AM PASSENGER SERVICE MANAGER): Asymptomatic Assessment & Plan (02/01/2024 11:39 AM CDT): The patient denies that his limbs are moving at night when he sleeps Assessment & Plan (09/19/2023 9:51 AM PASSENGER SERVICE MANAGER): This a stable chronic condition will continue to follow Assessment & Plan (05/17/2023 10:59 AM CDT): This is improved with magnesium will continue to follow Assessment & Plan (02/16/2023 11:06 AM CDT): Continue magnesium and exercise Assessment & Plan (01/30/2023 10:35 AM CDT): Asymptomatic Assessment & Plan (08/03/2022 9:08 AM PASSENGER SERVICE MANAGER): Continue mg Assessment & Plan (08/01/2022 11:25 AM PASSENGER SERVICE MANAGER): Currently asymptomatic. I have ordered an iron and ferritin level. The BUN and creatinine on July 27, 2022 was BUN 19 and creatinine 0.7 Obstructive sleep apnea syndrome 02/21/2022 Assessment & Plan (08/13/2024 8:59 AM PASSENGER SERVICE MANAGER): Due to ongoing symptoms, the patient will [...] [employer]. Assessment & Plan (09/19/2023 9:51 AM PASSENGER SERVICE MANAGER): Continue CPAP Assessment & Plan (05/17/2023 10:59 [...] [employer] Assessment & Plan (08/03/2022 9:08 AM PASSENGER SERVICE MANAGER): Controlled with c-pap Assessment & Plan (08/01/2022 11:24 AM PASSENGER SERVICE MANAGER): Due to the patient being intolerant of optimal pressure of 18 cm water pressure, Patient will continue CPAP therapy at 14 cm water pressure. Denied need for supplies. DME [employer] VT (ventricular tachycardia) 2022 Assessment & Plan (06/28/2022 1:46 PM PASSENGER SERVICE MANAGER): VT s/p VT ablation 2022 - Dr. [...] 12/17 Assessment & Plan (09/19/2023 9:51 AM PASSENGER SERVICE MANAGER): This is a stable chronic condition patient is asymptomatic will continue to follow Assessment & Plan (08/08/2023 10:25 AM PASSENGER SERVICE MANAGER): Patient has been stable since he had an ablation Assessment & Plan (05/17/2023 10:59 AM CDT): This is stable and patient is followed by cardiology, continue current medications follow-up routine Assessment & Plan (02/16/2023 11:05 AM CDT): Patient is seen Cardiology and well controlled with beta-blockers will continue to follow Assessment & Plan (08/03/2022 9:08 AM PASSENGER SERVICE MANAGER): Well controlled Assessment & Plan (02/15/2022 2:12 PM CDT): Presented to OSH with chest tightness and found to have a HR in 200s. EKG suggestive of VT. Resolved with amiodarone and metopralol. Patient was then transferred to [facility] on 01/13/2022. Echocardiogram with EF 59%, [facility] with no CAD. Patient was eventually discharged [...] 06/02/2021 Assessment & Plan (09/19/2023 9:50 AM PASSENGER SERVICE MANAGER): This is a stable chronic condition will continue to follow Assessment & Plan (08/08/2023 10:25 AM PASSENGER SERVICE MANAGER): Currently controlled with no meds will continue to follow Assessment & Plan (05/17/2023 10:58 AM CDT): This is stable will continue to follow Assessment & Plan (02/16/2023 11:05 AM CDT): Currently Assessment & Plan (08/03/2022 9:07 AM PASSENGER SERVICE MANAGER): controlled Assessment & Plan (06/02/2021 7:37 AM PASSENGER SERVICE MANAGER): This is new an uncontrolled, we discussed [...] follow Assessment & Plan (09/23/2020 5:00 PM PASSENGER SERVICE MANAGER): Images from the original note were not [...] 06/16/2020 Assessment & Plan (06/16/2020 9:15 AM PASSENGER SERVICE MANAGER): Getting x-rays today, may consider cortisone injection [...] MRI Assessment & Plan (06/16/2020 9:14 AM PASSENGER SERVICE MANAGER): Declined PT, on medications, will get x-rays [...] routine Assessment & Plan (09/19/2023 9:50 AM PASSENGER SERVICE MANAGER): This is a stable chronic condition. Monitor blood pressure, call if out of parameters as we discussed. Low sodium and caffeine diet. baby asa as discussed if applicable. Diet, exercise and weight reduction. Labs as ordered. F/U routine Assessment & Plan (08/08/2023 10:25 AM PASSENGER SERVICE MANAGER): This is a stable chronic condition. Monitor [...] weeks Assessment & Plan (08/03/2022 9:08 AM PASSENGER SERVICE MANAGER): Images from the original note were not included. This is a stable chronic condition. Monitor blood pressure, call if out of parameters as we discussed. Low sodium and caffeine diet. baby asa as discussed if applicable. Diet, exercise and weight reduction. Labs as ordered. F/U routine Assessment & Plan (06/28/2022 1:47 PM PASSENGER SERVICE MANAGER): Monitor home BP daily off verapamil If [...] routine Assessment & Plan (06/02/2021 7:37 AM PASSENGER SERVICE MANAGER): This is a stable chronic condition. Monitor [...] routine Assessment & Plan (06/16/2020 9:15 AM PASSENGER SERVICE MANAGER): Images from the original note were not [...] routine Assessment & Plan (06/07/2019 3:34 PM PASSENGER SERVICE MANAGER): BP 144/92 sitting, 130/82 standing Patient desires to increase lisinopril given elevated outpatient numbers, increased to 20mg Check BP at nurse visit in 2 weeks and BMP Given handout on DASH diet Vitamin D deficiency 09/24/2018 Assessment & Plan (09/19/2023 9:50 AM PASSENGER SERVICE MANAGER): Continue vitamin-D Assessment & Plan (08/08/2023 10:25 AM PASSENGER SERVICE MANAGER): Continue taking vitamin-D Assessment & Plan (05/17/2023 10:59 AM CDT): Continue vitamin-D Assessment & Plan (02/16/2023 11:06 AM CDT): Continue vitamin-D Assessment & Plan (08/03/2022 9:08 AM PASSENGER SERVICE MANAGER): CPM Assessment & Plan (11/18/2021 8:39 AM CDT): Please start taking Assessment & Plan (06/02/2021 7:37 AM PASSENGER SERVICE MANAGER): Continue vitamin-D Assessment & Plan (11/18/2020 9:26 AM CDT): CPM Assessment & Plan (09/23/2020 4:59 PM PASSENGER SERVICE MANAGER): Continue current medications Assessment & Plan (10/14/2019 [...] understanding Assessment & Plan (09/23/2020 4:59 PM PASSENGER SERVICE MANAGER): Images from the original note were not [...] updated Assessment & Plan (06/02/2021 7:36 AM PASSENGER SERVICE MANAGER): Healthcare maintenance updated, screening labs ordered, healthy diet exercise and weight reduction. Dysmetabolic syndrome X 02/08/2016 Assessment & Plan (10/31/2023 3:28 PM CDT): Healthy diet exercise and weight reduction Assessment & Plan (09/19/2023 9:50 AM PASSENGER SERVICE MANAGER): Healthy diet exercise and weight reduction Assessment & Plan (03/14/2022 11:00 AM CDT): Diet as controlled Assessment & Plan (01/31/2022 10:35 AM CDT): Healthy diet and exercise Assessment & Plan (11/18/2021 8:38 AM CDT): Healthy diet and exercise Assessment & Plan (06/02/2021 7:37 AM PASSENGER SERVICE MANAGER): Healthy diet exercise and weight reduction, labs as ordered Assessment & Plan (03/31/2021 7:25 AM CDT): Diet controlled Assessment & Plan (11/18/2020 9:25 AM CDT): Diet and exercise Assessment & Plan (09/23/2020 4:59 PM PASSENGER SERVICE MANAGER): Diet exercise and weight reduction will continue to follow Assessment & Plan (06/16/2020 9:15 AM PASSENGER SERVICE MANAGER): Healthy diet and exercise Assessment & Plan [...] routine. Assessment & Plan (09/19/2023 9:50 AM PASSENGER SERVICE MANAGER): Patient is to continue present medications, work on diet and exercise as discussed, we did discuss the medications and potential side effects and signs and symptoms that would warrant calling office. Follow up routine. Assessment & Plan (08/08/2023 10:25 AM PASSENGER SERVICE MANAGER): Patient is to continue present medications, work [...] routine. Assessment & Plan (08/03/2022 9:08 AM PASSENGER SERVICE MANAGER): Diet controlled Assessment & Plan (03/14/2022 11:00 [...] loss Assessment & Plan (06/02/2021 7:37 AM PASSENGER SERVICE MANAGER): Healthy diet exercise and labs as ordered Assessment & Plan (03/31/2021 7:26 AM CDT): Diet controlled Assessment & Plan (11/18/2020 9:26 AM CDT): Patient is to continue present medications, work on diet and exercise as discussed, we did discuss the medications and potential side effects and signs and symptoms that would warrant calling office. Follow up routine. Assessment & Plan (09/23/2020 4:59 PM PASSENGER SERVICE MANAGER): Diet exercise weight reduction and will continue to follow labs at next visit Assessment & Plan (06/16/2020 9:15 AM PASSENGER SERVICE MANAGER): Patient is to continue present medications, work [...] EGD Assessment & Plan (06/02/2021 7:37 AM PASSENGER SERVICE MANAGER): We discussed the importance of diet and [...] Refused),06/02/2021(Deferred: Patient Refused),05/24/2021(Deferred: Patient Refused),10/03/2019(Deferred: Patient Refused) [employer] ([employer]) SARS-CoV-2 Vaccination 09/18/2020 Pfizer SARS-CoV-2 Monovalent [...] D deficiency Sleep apnea VT (ventricular tachycardia) 2022 Arthritis 2010 Hypertension 2019 Family History [...] on file Legal Sex Male 2:00 AM PASSENGER SERVICE MANAGER Gender Identity Male 10/14/2019 2:17 PM CDT Sexual Orientation Straight 10/14/2019 2: 17 PM CDT Last Filed Vital Signs Vital Sign Reading Time Taken Comments Blood Pressure 134/80 08/13/2024 8:41 AM PASSENGER SERVICE MANAGER Pulse 73 08/13/2024 8:41 AM PASSENGER SERVICE MANAGER Temperature 36.8 C (98.2 F) 08/13/2024 8:41 AM PASSENGER SERVICE MANAGER Respiratory Rate 18 08/13/2024 8:41 AM PASSENGER SERVICE MANAGER Oxygen Saturation 96% 08/13/2024 8:41 AM PASSENGER SERVICE MANAGER Inhaled Oxygen Concentration - - Weight 116.1 kg (256 lb) 08/13/2024 8:41 AM PASSENGER SERVICE MANAGER Height 180.3 cm (5' 11) 08/13/2024 8:41 AM PASSENGER SERVICE MANAGER Body Mass Index 35.7 08/13/2024 8:41 AM PASSENGER SERVICE MANAGER Plan of Treatment Health Maintenance Due Date Last Done Comments Hepatitis B Screening 1981 DTaP/Tdap/Td Vaccine (2 - Td or Tdap) 11/11/2017 11/12/2007 Regular Well Visit/Exam 18-64 11/18/2022 11/18/2021, 06/02/2021 Depression Screening 02/17/2024 02/16/2023, 11/18/2021, 06/16/2020, Additional history exists Prostate Cancer Screening-PSA 07/27/2024 07/27/2022, 06/02/2021, 06/16/2020, Additional history exists Covid-19 Vaccine ( season) 2025 06/06/2021, 09/18/2020 Influenza Vaccine (#1) 2025 Colon Cancer Screening-Colonoscopy 12/07/2028 12/07/2018 Colon Cancer Screening-CT Colonography Discontinued 12/07/2018 Colon Cancer Screening-DNA Stool Discontinued 12/07/2018 Colon Cancer Screening-FIT Discontinued 12/07/2018 Colon Cancer Screening-Sigmoidoscopy Discontinued 12/07/2018 Hepatitis C Screening Completed 04/15/2019 Zoster Vaccine Completed 09/17/2021, 05/24/2021 Pneumococcal vaccine <65 Aged Out No longer eligible based on patient's age to complete this topic Medical Devices Implanted Type Area Mine Engineering Supervisor Device Identifier Shelf Expiration Date Model / Serial / Lot [employer] Vascade Mvp 6-12fr Venous Closure [id number] - [id number] Implanted:Qty: 1 on 2022 by George Valenzuela MD at [facility] Collagen Right: Groin [employer] 07/16/2025 800-612C -[id number] / / [id number] [employer] Vascade Mvp 6-12fr Venous Closure [id number] - [id number] Implanted:Qty: 1 on 2022 by George Valenzuela MD at [facility] Collagen Right: Groin [employer] 07/16/2025 800-612C -[id number] / / [id number] [employer] Vascade Mvp 6-12fr Venous Closure [id number] - [id number] Implanted:Qty: 1 on 2022 by George Valenzuela MD at [facility] Collagen Left: Groin [employer] 11/03/2023 800-612C -[id number] / / [id number] [employer] Vascade Mvp 6-12fr Venous Closure [id number] - [id number] Implanted:Qty: 1 on 2022 by George Valenzuela MD at [facility] Collagen Left: Groin [employer] 11/03/2023 800-612C -[id number] / / [id number] [employer] mobile [employer] Monitor Jot Dx Insertable Cardiac [id number] - [id number] - [id number] Implanted:Qty: 1 on 01/28/2022 by George Valenzuela MD at [facility] Implantable Loop Recorder N/A: Chest [facility] 12/07/2022 [id number] / [id number] / Procedures Procedure Name Priority Date/Time Associated Diagnosis Comments PSA SCREEN Routine 07/27/2022 9:23 AM PASSENGER SERVICE MANAGER Mixed hyperlipidemia Essential hypertension Benign prostatic hyperplasia with urinary frequency HEPATITIS C RNA, QUANTITATIVE, NAAT Routine 04/15/2019 10:28 AM CDT COLONOSCOPY Routine 12/07/2018 from Last 3 Months or Most Recently Relevant to Health Maintenance Results * PSA screen (07/27/2022 9:23 AM PASSENGER SERVICE MANAGER) PSA-Total 0.58 <=3.90 ng/mL [facility] PEREYRA Comment: [...] data last revised 21. Testing performed by: [facility], [address] [place] [address]., [id number] Blood 07/27/2022 9:23 AM PASSENGER SERVICE MANAGER 07/27/2022 10:44 AM PASSENGER SERVICE MANAGER Abdoulaye JAMES LAB BLOOD ORDERABLES Final Resu lt LESLIE [address] [facility] [place] [address] * Hepatitis C RNA, Quantitative, NAAT (04/15/2019 10:28 AM CDT) HCV RNA IU/mL Not Detected IU/mL [facility] HCV RNA log IU/mL Not Detected log IU/mL [facility] HCV quant by NAAT interp Not Detected Not Detected [facility] Comment: INTERPRETIVE INFORMATION: HCV by Quantitative NAAT Normal range for this assay is Not Detected. The quantitative range of this assay is [...] and Cellular Tissue-Based Products (HCT/P). Performed by [facility], [address] [place] [address] [email or web address], Rajiv Urban MD, Lab. Director 04/15/2019 10:2 8 AM CDT 04/15/2019 10:42 AM CDT Narrative Resulting Agency Comment CLI Abdoulaye JAMES LAB BLOOD ORDERABLES Final Resu lt [facility] [address] [place] [address], [facility] [phone] * Colonoscopy (12/07/2018) Anatomical Region Laterality Modality Other Historical Provider ENDOSCOPY PROCEDURES Tameka l Result from Last 3 Months or Most Recently Relevant to Health Maintenance Insurance ANTHEM ACCESS CHOICE Member Subscriber Plan / Payer (Ef fective 2020-Present) Name:Solo Groves Relation to Subscriber:Self Name:Solo Groves Payer ID:[id number] (NAIC) Type: [employer] Address: [facility] [address] [place] [id number] ANTHEM ACCESS CHOICE Advance Directives For more information, please contact: [phone] * Full Code (Latest Code Status on File) Date Activated Date Inactivated Comments 01/22/2024 2:46 PM 01/22/2024 7:47 PM * Full Code Date Activated Date Inactivated Comments 2022 8:22 PM 02/15/2022 3:51 PM * Full Code Date Activated Date Inactivated Comments 01/13/2022 6:32 PM 01/28/2022 10:45 PM Care Teams Stockroom Associate Relationship Specialty Start Date End Date Abdoulaye Britt PA PCP - General Family Medicine 04/15/19
--- OUTSIDE RECORDS SUMMARY | 2025-05-21 05:04 | XMS_ITS | Encounter Summary ---
Author Organization [facility] Care Team Providers Care Chronic Specialist Name Role Phone Abdoulaye Britt Primary Care Provider [phone] Encounter Details Date Type Department Care Team (Latest Contact Info) Description 04/10/2017 Orders Only [facility] Provider, MD Chen [address] [place] [id number] Social History Tobacco Use Types Packs/Day Years Used Date Smoking Tobacco: Never Assessed Sex and Gender Information Value Date Recorded Sex Assigned at Not on file Legal Sex Male 2:00 AM BUNDLES HANGER Gender Identity Male 10/14/2019 2:17 PM CDT [...] on filedocumented in this encounter Care Teams Chronic Specialist Relationship Specialty Start Date End Date Abdoulaye Britt PA PCP - General Family Medicine 04/15/19 documented as of this encounter
--- OUTSIDE RECORDS SUMMARY | 2025-05-21 05:04 | XMS_ITS | Encounter Summary ---
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
--- OUTSIDE RECORDS SUMMARY | 2025-05-21 05:04 | XMS_ITS | Data Portability ---
[facility] Organization [facility] Address [address] [place] [address] Assessment No assessment recorded. Plan of Treatment Reminders Order Date Submit Date Provider Last Modified By Organization Details Last Modified Time Details Appointments ANY 15 2024 09:30A M JACOB Grubbs Not available Not available Not available Lab HbA1c (hemoglob in A1c), blood 2024 025 In-Office Order, Internal Use Only DO Not Attach Compendium DO Not Attach Compendium, Do Not Delete/merge, [id number] 11/28/2024 12:51:48 Referral gastroent erologist referral 2024 025 DALE Cunningham MD, [address] [facility], [facility] [address], [place], [address], 04/03/2025 18:52:39 physical therapist referral - back and shoulder pain 2024 025 [facility], [address] [place] [address], [address], 03/23/2025 21:49:[address] referral - diabetes (A1C 6.5 on 11/28/2024 ) 2024 025 [facility], [id number] [place] [address], [address], 11/28/2024 13:00:59 Procedures colonosco py procedure (PROC) - Colonosco py [address] (Imaging), [address], [place], [address], 02/05/2025 11:30:02 Surgeries None recorded. Imaging None recorded. Medication Orders prednison e 10 mg tablets in a dose pack [address]/Pharmacy [facility]2510, [address] [place], [address], 03/06/2025 09:51:30 prednison e 20 mg tablet [address]/Pharmacy [address]2510, [address] [place], [address], 11/28/2024 12:39:05 valsartan 160 mg tablet [address]/Pharmacy [address]2510, [address] [place] [address], [address], 10/10/2024 10:14:19 valsartan 160 mg tablet 2024 025 [facility] [address] [place], [address], 10/10/2024 10:14:21 metformin ER 500 mg tablet,ex tended release 24 hr [address]/Pharmacy [address]2510, [address] [place], [address], 10/01/2024 10:14:00 simvastat in 10 mg tablet 2024 025 [facility]/Pharmacy #2510, [address] [place], [address], 10/01/2024 10:13:56 lisinopri l 10 mg tablet 2024 025 [facility]/Pharmacy #2510, [address] [place], [address], 10/10/2024 10:12:42 Patient TargetsNo targets recorded. Patient Instructions Encounter Date Encounter Id Patient Instructions Last Modified By Organization Details Last Modified Time 10/10/2024 [id number] A healthy lifestyle: care instructions [email or web address] Not available 10/10/2024 10:14:19 11/28/2024 [id number] rotator cuff: exercises [email or web address] Not available 11/28/2024 12:39:05 shoulder stretches: exercises [email or web address] Not available 11/28/2024 12:51:48 A healthy lifestyle: care instructions [email or web address] Not available 11/28/2024 12:39:05 03/06/2025 [id number] A healthy lifestyle: care instructions [email or web address] Not available 03/06/2025 09:51:30 Reason for Referral [employer] Referral for Typ e 2 diabetes mellitus without complication diabetes (A1C 6.5 on 11/28/2024) Referring Physician: Abdoulaye Britt [facility], Encounter Date: 11/28/2024 Physical Therapist Referral for Pain of right shoulder joint back and shoulder pain Referring Physician: Abdoulaye Britt [facility], Encounter Date: 03/06/2025 Deckhand Clam Dredge Referral for Screening for malignant neoplasm of colon Referring Physician: Abdoulaye Britt [facility], Encounter Date: 03/06/2025 Results Created Date Observation Date Name Description Value Unit Range Abnormal Flag Note LastModifiedBy Organization Detail LastModifiedTime 09/26/1909/25/2024 COMPR EHENS SD METAB OLIC PANEL sodium 140 mmol/ L 134-14 4 normal Not Available [facility] (Lab) [address] [place], [address], 09/25/2024 21:44:17 09/26/19 25 09/25/2024 COMPR EHENS SD METAB OLIC PANEL potassium 3.7 mmol/ L 3.5-5. 2 normal Not Available [facility] (Lab) [address] [place], [address], 09/25/2024 21:44:17 09/26/19 25 09/25/2024 COMPR EHENS SD METAB OLIC PANEL chloride 104 mmol/ L 96-106 normal Not Available [facility] (Lab) [address], [place], [address], 09/25/2024 21:44:17 09/26/19 25 09/25/2024 COMPR EHENS SD METAB OLIC PANEL carbon dioxide 24 mmol/ L 20-29 normal Not Available [facility] (Lab) [address], [place], [address], 09/25/2024 21:44:17 09/26/19 25 09/25/2024 COMPR EHENS SD METAB OLIC PANEL anion gap 16.0 mmol/ L Not Available [facility] (Lab) [address], [place], [address], 09/25/2024 21:44:17 09/26/19 25 09/25/2024 COMPR EHENS SD METAB OLIC PANEL blood urea nitrogen 17 mg/dL 8-27 normal Not Available [facility] (Lab) [address], [place], [address], 09/25/2024 21:44:17 09/26/19 25 09/25/2024 COMPR EHENS SD METAB OLIC PANEL creatinine 0.72 mg/dL 0.76-1 .27 low Not Available [facility] (Lab) [address], [place], [address], 09/25/2024 21:44:17 09/26/19 25 09/25/2024 COMPR EHENS SD METAB OLIC PANEL glomerular filtration rate 104 mL/mi n/1 >59 Not Available [facility] (Lab) [address], [place], [address], 09/25/2024 21:44:17 09/26/19 25 09/25/2024 COMPR EHENS SD METAB OLIC PANEL BUN creatinine ratio 24 10-24 normal Not Available [facility] (Lab) [address] [place], [address], 09/25/2024 21:44:17 09/26/19 25 09/25/2024 COMPR EHENS SD METAB OLIC PANEL glucose 97 mg/dL 70-99 normal Not Available [facility] (Lab) [address] [place], [address], 09/25/2024 21:44:17 09/26/19 25 09/25/2024 COMPR EHENS SD METAB OLIC PANEL osmolality calculated 281 280-30 1 normal Not Available [facility] (Lab) [address] [place], [address], 09/25/2024 21:44:17 09/26/19 25 09/25/2024 COMPR EHENS SD METAB OLIC PANEL calcium 9.3 mg/dL 8.6-10 .2 normal Not Available [facility] (Lab) [address], [place], [address], 09/25/2024 21:44:17 09/26/19 25 09/25/2024 COMPR EHENS SD METAB OLIC PANEL bilirubin total 1.0 mg/dL 0.0-1. 2 normal Not Available [facility] (Lab) [address] [place], [address], 09/25/2024 21:44:17 09/26/19 25 09/25/2024 COMPR EHENS SD METAB OLIC PANEL AST aspartate aminotransfe rase 40 U/L 0-40 normal Not Available [facility] (Lab) [address] [place], [address], 09/25/2024 21:44:17 09/26/19 25 09/25/2024 COMPR EHENS SD METAB OLIC PANEL ALT (alanine aminotransfe rase) 58 IU/L 0-44 high Not Available [facility] (Lab) [address] [place], [address], 09/25/2024 21:44:17 09/26/19 25 09/25/2024 COMPR EHENS SD METAB OLIC PANEL total protein 6.5 g/dL 6.0-8. 5 normal Not Available [facility] (Lab) [address] [place], [address], 09/25/2024 21:44:17 09/26/19 25 09/25/2024 COMPR EHENS SD METAB OLIC PANEL albumin level 4.4 g/dL 3.9-4. 9 normal Not Available [facility] (Lab) [address], [place], [address], 09/25/2024 21:44:17 09/26/19 25 09/25/2024 COMPR EHENS SD METAB OLIC PANEL globulin 2.1 g/dL 1.5-4. 5 normal Not Available [facility] (Lab) [address], [place], [address], 09/25/2024 21:44:17 09/26/19 25 09/25/2024 COMPR EHENS SD METAB OLIC PANEL albumin globulin ratio 2.0 1.2-2. 2 normal Not Available [facility] (Lab) [address], [place], [address], 09/25/2024 21:44:17 09/26/19 25 09/25/2024 COMPR EHENS SD METAB OLIC PANEL alkaline phosphatase 90 IU/L 44-121 normal Not Available [facility] (Lab) [address] [place], [address], 09/25/2024 21:44:17 09/26/19 25 09/25/2024 LIPID PANEL triglyceride s 97 mg/dL 0-149 normal Not Available [facility] (Lab) [address] [place], [address], 09/25/2024 21:44:18 09/26/19 25 09/25/2024 LIPID PANEL cholesterol 218 mg/dL 100-19 9 high Not Available [facility] (Lab) [address] [place], [address], 09/25/2024 21:44:18 09/26/19 25 09/25/2024 LIPID PANEL LDL cholesterol 131 mg/dL 0-99 high Not Available [facility] ([facility]) [address] [place], [address], 09/25/2024 21:44:18 09/26/19 25 09/25/2024 LIPID PANEL VLDL cholesterol (calc) 19 mg/dL 5-40 normal Not Available [facility] (Lab) [address] [place], [address], 09/25/2024 21:44:18 09/26/19 25 09/25/2024 LIPID PANEL HDL cholesterol 76 mg/dL 40-999 normal Not Available [facility] ([facility]) [address] [place], [address], 09/25/2024 21:44:18 09/26/19 25 09/25/2024 LIPID PANEL LDL HDL ratio 1.7 0-3.6 normal Not Available [facility] (Lab) [address] [facility], [place], [address], 09/25/2024 21:44:18 09/26/19 25 09/25/2024 LIPID PANEL chol HDL ratio 3.0 mg/dL 0-5.0 normal Not Available [facility] (Lab) [address] [facility], [place], [address], 09/25/2024 21:44:18 09/26/19 25 09/27/2024 HEMOG LOBIN A1C hemoglobin A1C 6.7 % 4.8-5. 6 abnormal Predi abete s: 5.7 - 6.4 Diabe arnoldo: >6.4 Glyce sridhar contr ol for adult s with diabe arnoldo: <7.0 [place]fo [place]med at: 01 - [place] [address] Lab Direc tor: Stewart low PhD, Phone : [phone] Not Available [facility] (Lab) [address] [place], [address], 09/27/2024 07:10:00 11/29/19 25 11/28/2024 HbA1c (hemo globi n A1c), blood HbA1c 6.5 Not Available In-Office Order Internal Use Only DO Not Attach Compendium DO Not Attach Compendium, Do Not Delete/merge, [id number] 11/28/2024 12:07:00 12/28/19 25 12/27/2024 MICRO ALBUM CREAT ININE RATIO UR creatinine urine random 120.8 mg/dL not estab. Not Available [facility] (Lab) [address] [place], [address], 12/27/2024 21:03:18 12/28/19 25 12/27/2024 MICRO ALBUM CREAT ININE RATIO UR microalbumin urine random 3.8 mg/dL not estab. Not Available [facility] (Lab) [address] [place], [address], 12/27/2024 21:03:18 12/28/19 25 12/27/2024 MICRO ALBUM CREAT ININE RATIO UR microalbum creatinine ratio ur 31 mg/g_ cre 0-29 Urine Micro album in-Cr eatin ine Ratio : Otilia l 0-29 Moder ately Incre ased 30-30 0 Sever jessica Incre ased >300 Not Available [facility] (Lab) [address] [place], [address], 12/27/2024 21:03:18 12/28/19 25 12/27/2024 COMPR EHENS SD METAB OLIC PANEL sodium 146 mmol/ L 134-14 4 high Not Available [facility] (Lab) [address] [place], [address], 12/27/2024 21:23:59 12/28/19 25 12/27/2024 COMPR EHENS SD METAB OLIC PANEL potassium 3.7 mmol/ L 3.5-5. 2 normal Not Available [facility] (Lab) [address] [place], [address], 12/27/2024 21:23:59 12/28/19 25 12/27/2024 COMPR EHENS SD METAB OLIC PANEL chloride 109 mmol/ L 96-106 high Not Available [facility] (Lab) [address], [place], [address], 12/27/2024 21:23:59 12/28/19 25 12/27/2024 COMPR EHENS SD METAB OLIC PANEL carbon dioxide 24 mmol/ L 20-29 normal Not Available [facility] (Lab) [address], [place], [address], 12/27/2024 21:23:59 12/28/19 25 12/27/2024 COMPR EHENS SD METAB OLIC PANEL anion gap 17.0 mmol/ L Not Available [facility] (Lab) [address], [place], [address], 12/27/2024 21:23:59 12/28/19 25 12/27/2024 COMPR EHENS SD METAB OLIC PANEL blood urea nitrogen 15 mg/dL 8-27 normal Not Available [facility] (Lab) [address], [place], [address], 12/27/2024 21:23:59 12/28/19 25 12/27/2024 COMPR EHENS SD METAB OLIC PANEL creatinine 0.62 mg/dL 0.76-1 .27 low Not Available [facility] (Lab) [address], [place], [address], 12/27/2024 21:23:59 12/28/19 25 12/27/2024 COMPR EHENS SD METAB OLIC PANEL glomerular filtration rate 109 mL/mi n/1 Not Available [facility] (Lab) [address], [place], [address], 12/27/2024 21:23:59 12/28/19 25 12/27/2024 COMPR EHENS SD METAB OLIC PANEL BUN creatinine ratio 24 10-24 normal Not Available [facility] (Lab) [address], [place], [address], 12/27/2024 21:23:59 12/28/19 25 12/27/2024 COMPR EHENS SD METAB OLIC PANEL glucose 116 mg/dL 70-99 high Not Available [facility] (Lab) [address] [place], [address], 12/27/2024 21:23:59 12/28/19 25 12/27/2024 COMPR EHENS SD METAB OLIC PANEL osmolality calculated 292 280-30 1 normal Not Available [facility] (Lab) [address] [place], [address], 12/27/2024 21:23:59 12/28/19 25 12/27/2024 COMPR EHENS SD METAB OLIC PANEL calcium 9.4 mg/dL 8.6-10 .2 normal Not Available [facility] (Lab) [address], [place], [address], 12/27/2024 21:23:59 12/28/19 25 12/27/2024 COMPR EHENS SD METAB OLIC PANEL bilirubin total 0.8 mg/dL 0.0-1. 2 normal Not Available [facility] (Lab) [address], [place], [address], 12/27/2024 21:23:59 12/28/19 25 12/27/2024 COMPR EHENS SD METAB OLIC PANEL AST aspartate aminotransfe rase 38 U/L 0-40 normal Not Available [facility] (Lab) [address] [place], [address], 12/27/2024 21:23:59 12/28/19 25 12/27/2024 COMPR EHENS SD METAB OLIC PANEL ALT (alanine aminotransfe rase) 53 IU/L 0-44 high Not Available [facility] (Lab) [address] [place], [address], 12/27/2024 21:23:59 12/28/19 25 12/27/2024 COMPR EHENS SD METAB OLIC PANEL total protein 6.3 g/dL 6.0-8. 5 normal Not Available [facility] (Lab) [address] [place], [address], 12/27/2024 21:23:59 12/28/19 25 12/27/2024 COMPR EHENS SD METAB OLIC PANEL albumin level 4.3 g/dL 3.9-4. 9 normal Not Available [facility] (Lab) [address] [place], [address], 12/27/2024 21:23:59 12/28/19 25 12/27/2024 COMPR EHENS SD METAB OLIC PANEL globulin 2.0 g/dL 1.5-4. 5 normal Not Available [facility] (Lab) [address] [place], [address], 12/27/2024 21:23:59 12/28/19 25 12/27/2024 COMPR EHENS SD METAB OLIC PANEL albumin globulin ratio 2.0 1.2-2. 2 normal Not Available [facility] (Lab) [address] [facility], [place], [address], 12/27/2024 21:23:59 12/28/19 25 12/27/2024 COMPR EHENS SD METAB OLIC PANEL alkaline phosphatase 110 IU/L 44-121 normal Not Available [facility] (Lab) [address] [facility], [place], [address], 12/27/2024 21:23:59 12/28/19 25 12/27/2024 COMPR EHENS SD METAB OLIC PANEL hemolysis 1 0-19 Not Available [facility] (Lab) [address] [place], [address], 12/27/2024 21:23:59 12/28/19 25 12/27/2024 COMPR EHENS SD METAB OLIC PANEL icterus 1 0.5-4. 9 Not Available [facility] (Lab) [address] [place], [address], 12/27/2024 21:23:59 12/28/19 25 12/27/2024 COMPR EHENS SD METAB OLIC PANEL lipemia 3 0-99 Not Available [facility] (Lab) [address] [place], [address], 12/27/2024 21:23:59 12/28/19 25 12/29/2024 HEMOG LOBIN A1C hemoglobin A1C 6.8 % 4.8-5. 6 abnormal Predi abete s: 5.7 - 6.4 Diabe arnoldo: >6.4 Glyce sridhar contr ol for adult s with diabe arnoldo: <7.0 Perfo rmed at: [facility] - [facility] [address] [facility], [place], [place] [address] Lab Direc tor: Stewart low PhD, Phone : [phone] Not Available [facility] (Lab) [address] [place], [address], 12/29/2024 09:12:12 12/28/19 25 12/30/2024 PSA (SERI AL MONIT OR) prostate specific Ag 0.6 NG/mL 0.0-4. 0 Carolyn ECLIA metho dolog y. Accor ding to the Ameri can Urolo gical Assoc iatio n, Serum PSA shoul d decre ase and remai n at undet ectab le level s after radic al prost atect flynn. The AUA defin es bioch emica l recur rence as an initi al PSA value 0.2 ng/mL or great er follo wed by a subse quent confi rmato ry PSA value 0.2 ng/mL or great er. Value s obtai roopa with diffe rent assay metho ds or kits canno t be used inter elias eably . Resul ts canno t be inter prete d as absol [place] evide nce of the prese nce or absen ce of kike morel se. Perfo rmed at: 01 - [facility] [address] [place] [address] Lab Direc tor: Stewart low PhD, Phone : [phone] Not Available [facility] (Lab) [address] [place], [address], 12/30/2024 13:09:05 09/08/19 25 09/08/2024 CT, abdom en + pelvi s, w/o contr ast No observ ation record ed. [address], [place], [address], 09/12/2024 17:09:50 Result Notes None recorded. Problems Name Problem SNOMED Code Status Onset Date Resolution Date Notes Provider Name and Address Organization Details Recorded Time Gastroeso phageal reflux disease 433377168 Active [place]H [place] [facility] 16:23:14 Cough 38052094 Active [place] [facility] 16:23:14 Metabolic syndrome X 007783305 Completed 201502/08/2016 [place] [facility] 16:23:14 Mixed hyperlipi demia 793440570 Completed 201502/08/2016 [place] [facility] 16:23:14 Patient encounter status 923711012 Active 2015 August[place] [facility] 16:23:14 Bile-bharati anjali gastritis 47938144 Active 2016 [place] [facility] 16:23:14 Derangeme nt of medial meniscus of right knee 074683131689 106 Active 2017 Maria Alejandra ISIAH [place] [facility] 16:23:14 Osteoarth ritis of knee 746872965 Active 2017 Maria Alejandra [place] [facility] 16:23:14 Vitamin D deficienc y 29944635 Completed 201809/24/2018 [place] [facility] 16:23:14 Essential hypertens ion 54352550 Completed 201804/25/2019 Maria Alejandra [place] [facility] 16:23:14 Obesity caused by energy imbalance 106933579 Active 2019 Maria Alejandra [place] [facility] 16:23:14 Acute low back pain 897449418 Active 2019 Maria Alejandra [place] [facility] 16:23:14 Pain of knee region 4881027173 Active 2019 Maria Alejandra [place] [facility] 16:23:14 Body mass index 30+ - obesity 424837405 Active 2020 Maria Alejandra [place] [facility] 16:23:14 Urinary frequency due to benign prostatic hypertrop hy 374015913854 102 Completed 202006/02/2021 Maria Alejandra [place] [facility] 16:23:14 Nonsustai roopa ventricul ar tachycard ia 973917208 Completed 202101/13/2022 [place] ISIAH [place] [facility] 16:23:14 Ventricul ar tachycard ia 94482549 Active 2021 [place] ISIAH [place] [facility] 16:23:14 Obstructi ve sleep apnea syndrome 29833714 Completed 202102/21/2022 [place] ISIAH [place] [facility] 16:23:14 Periodic limb movement disorder 547658457 Completed 202208/01/2022 Maria Alejandra De [place]H [place] [facility] 16:23:14 Neck pain 44396379 Active 2022 Maria Alejandra De [place] [facility] 16:23:14 Generaliz ed anxiety disorder 52101384 Completed 202308/08/2023 Maria Alejandra De [place] [facility] 16:23:14 Cold and clammy skin 227550407 Active 2023 Maria Alejandra [place] [facility] 16:23:14 Gastroeso phageal reflux disease without esophagit is 945954973 Active 2023 JACOB Grubbs Attn: Marlee higgins,[address] [facility], [place], [address], [place] [facility] 07:16:15 Hyperlipi demia 53895550 Active 2023 JACOB Grubbs Attn: Accountmichael higgins,[address] [place], [address], [place] [facility] 4 07:16:19 Adult health examinati on Active 2023 JACOB Grubbs Attn: Accountmichael higgins,[address] [place], [address], [place] [facility] 07:16:20 Chronic low back pain 521629462 Active 2023 JACOB Grubbs Attn: Accountmichael higgins,[address] [facility], [place], [address], [place] [facility] 4 06:50:39 Obesity 680751785 Active 2023 JACOB Grubbs Attn: Marlee higgins,[address] [facility], [place], [address], [place] [facility] 10:07:01 Type 2 diabetes mellitus without complicat ion 652438550 Active 2024 JACOB Grubbs Attn: Accountmichael higgins,[address] [place], [address], [place] [facility] 10:11:47 Bilateral chronic pain of upper limbs 094158040193 39851 Active 2024 JACOB Grubbs Attn: Accountmichael higgins,[address] [place], [address], [place] [facility] 12:26:34 Low back strain 209267759 Active 2024 Solange Bowling [place] [facility] 09:47:41 Problem Notes None recorded. Medical Equipment None Reported. Allergies Allergen ID Allergen Name Allergen Category Reaction Reaction Severity Criticality Documentation Date Start Date Code Code System Note Provider Name and Address Organization Details Recorded Time No known allergy (situatio n) Not available Not available Not available Not available 09/20/2024 44025 6003 SNOMED Maria Alejandra De [place] O [place] [facility] 16:23:26 392479 lisinopri l medicatio n cough mild low 10/08/2024 02957 RxNorm Chelsea MeridaKHOI [place] [facility] 12:40:55 Medications Name Sig Start Date Stop Date Status Note LastModified by Organization Details LastModified Time blood pressu solution kit active Not Available Not Available Not Available prednisone 10 mg tablet TAKE DIRECTED 6 TABLETS FOR 4 DAYS, 4 TABLETS X 4 DAYS, 2 TABLETS X 4 DAYS active Not Available Not Available No t Available doxycycline hyclate 100 mg capsule TAKE 1 CAPSULE BY MOUTH TWICE A DAY FOR 10 DAYS 04/02 completed Not Available Not Available Not Available potassium gluconate 2.5 mEq tablet 595 mg by oral route. active Not Available Not Available No t Available hydrocodone 5 mg-acetamin ophen 325 mg tablet TAKE 1 TABLET BY MOUTH EVERY 12 HOURS NEEDED FOR PAIN 11/21 completed Not Available Not Available Not Available famotidine 40 mg tablet TAKE 1 TABLET BY MOUTH EVERY DAY 2024 active Not Available Not Available Not Avai lable prednisone 20 mg tablet TAKE 2 TABLETS BY MOUTH EVERY DAY FOR 5 DAYS active Not Available Not Available No t Available simvastatin 10 mg tablet TAKE 1 TABLET BY MOUTH EVERY DAY active Not Available Not Available No t Available aspirin 81 mg tablet,hans yed release 81 mg by oral route. active Not Available Not Available No t Available acetaminoph en 500 mg tablet 1000 mg by oral route. active Not Available Not Available No t Available prednisone 10 mg tablets in a dose pack Take 1 dose pk by oral route. 2024 active Not Available Not Available Not Avai lable tamsulosin 0.4 mg capsule TAKE 1 CAPSULE BY MOUTH EVERY DAY active Not Available Not Available No t Available lisinopril 10 mg tablet TAKE 1 TABLET BY MOUTH EVERY DAY 10/10 completed Not Available Not Available Not Available sertraline 25 mg tablet TAKE 1 TABLET (25 MG TOTAL) BY MOUTH DAILY. 07/25 completed Not Available Not Available Not Available aspirin 81 mg tablet Take 1 tablet every day by oral route. active Not Available Not Available No t Available metoprolol succinate ER 25 mg tablet,exte nded release 24 hr TAKE 1 TABLET BY MOUTH EVERY DAY 2024 active Not Available Not Available Not Avai lable methylpredn isolone 4 mg tablets in a dose pack Take 1 dose pk by oral route. 07/25 completed Not Available Not Available Not Available albuterol sulfate HFA 90 mcg/actuati on aerosol inhaler TAKE 1-2 (INHALATI ON) EVERY 4 HOURS NEEDED - WHEEZING 06/10 completed Not Available Not Available Not Available ondansetron 4 mg disintegrat ing tablet LET 1 TABLET DISSOLVE IN MOUTH EVERY 8 HOURS NEEDED FOR NAUSEA AND VOMITING active Not Available Not Available No t Available metformin ER 500 mg tablet,exte nded release 24 hr TAKE 1 TABLET BY MOUTH EVERY DAY active Not Available Not Available No t Available sertraline 50 mg tablet TAKE 1 TABLET BY MOUTH EVERY DAY 02/05 completed Not Available Not Available Not Available finasteride 5 mg tablet TAKE 1 TABLET BY MOUTH EVERY DAY active Not Available Not Available No t Available valsartan 160 mg tablet Take 80 mg by oral route. 2024 active Not Available Not Available Not Avai lable cyclobenzap rine 5 mg tablet TAKE 1 TABLET BY MOUTH THREE TIMES A DAY NEEDED FOR MUSCLE SPASM active Not Available Not Available No t Available Vitamin D qd active Not Available Not Emmy ilable Not Available Tears qd prn active Not Available Not Availa ble Not Available Vitamin qd active Not Available Not Avail able Not Available magnesium oxide 500 mg capsule 1 {capsule} by oral route. active Not Available Not Available No t Available Vitals Date Recorded Body height Oxygen saturation Oxygen saturation in Arterial blood by Pulse oximetry Heart rate Respiratory rate Body mass index (BMI) Body weight Systolic And Diastolic Provider Name and Address Organization Details Last Updated DateTime 5 180.34 cm 98 % 98 % 65 /min 18 /min 35.4 kg/m2 096539. 46 g 140/80 mm[Hg] [place], [place] - [facility] 5 10:08:51 Date Recorded Body height Body mass index (BMI) Body weight Oxygen saturation Oxygen saturation in Arterial blood by Pulse oximetry Heart rate Respiratory rate Systolic And Diastolic Provider Name and Address Organization Details Last Updated DateTime 5 180.34 cm 35.3 kg/m2 932314. 62 g 96 % 96 % 65 /min 18 /min 130/78 mm[Hg] [facility] 5 12:08:25 Date Recorded Body height Body mass index (BMI) Body weight Oxygen saturation Oxygen saturation in Arterial blood by Pulse oximetry Heart rate Systolic And Diastolic Provider Name and Address Organization Details Last Updated DateTime 5 180.34 cm 36.1 kg/m2 215756. 98 g 95 % 95 % 73 /min 132/82 mm[Hg] Yariel Brice [place] [facility] 5 10:19:39 Date Recorded Body height Body mass index (BMI) Body weight Oxygen saturation Oxygen saturation in Arterial blood by Pulse oximetry Heart rate Systolic And Diastolic Provider Name and Address Organization Details Last Updated DateTime 5 180.34 cm 36.1 kg/m2 193924. 47 g 97 % 97 % 60 /min 128/72 mm[Hg] Solange Bowling MA [facility] 5 09:30:03 Social History Question Answer Notes LastModified by [employer] Details LastModified Time Tobacco Smoking Status Never Smoker [facility], [facility] 04/03/2024 09:34:04 What Is Your Level Of Caffeine Consumption? Moderate Information not available 07/25/2024 What Was The Date Of Your Most Recent Tobacco Screening? 03/06/2025 Information not available 03/06/2025 Sex: Male Functional Status Question Answer Note LastModified by [employer] Details LastModified Time Do you use any illicit or recreational drugs? No Information not available 06/10/2024 Do you or have you ever used any other forms of tobacco or nicotine? No Information not available 04/03/2024 What is your level of alcohol consumption? None Information not available 04/03/2024 Mental Status None recorded. Family History Nothing Reported. Medical History Condition Response Coronary Artery Disease N Other N High Blood Pressure Y Atrial Fibrillation N Thyroid Problems N Kidney or Bladder Problems Y GI Problems N Depression N COPD N Blood Clots N Have you had a mammogram in the last yea r? N Skin Problems N Eating Disorder N Anemia N Heart Attack (NC) N Anxiety Disorder Y Diabetes N Muscle, Joint, or Bone Problems N Arthritis Y Seizures/Epilepsy N Have you had a colonoscopy in the last 1 0 years? Y Acid Reflux (GERD) Y Cancer N Stroke N Asthma N Allergies N Have you had a PSA blood test in the las t year? N ADHD N Substance Abuse N High Cholesterol Y Hepatitis N Liver Disease N Schizophrenia N Headaches Y Heart Failure N Osteoporosis N Immunizations Vaccine Type Date Status Note Provider Nam e and Address Organization Details Recorded Time zoster recombinant 09/17/2021 completed Maria Alejandra De La O PA [place], [place] - [facility] 04/03/2024 09:32:26 zoster recombinant 05/24/2021 completed Augustaroman De La O PA [place], [place] - [facility] 04/03/2024 09:32:26 COVID-19, mRNA, LNP-S, PF, 30 mcg/0.3 mL dose 06/06/2021 completed Augustaroman De La O PA [place], [place] - [facility] 09/20/2024 16:23:09 COVID-19 vaccine, vector-nr, rS-Ad26, PF, 0.5 mL 09/18/2020 completed Augustaroman De La O PA [place], [place] - [facility] 09/20/2024 16:23:09 Tdap 11/12/2007 completed [facility] [place], [place] - [facility] 09/20/2024 16:23:09 Past Encounters Encounter ID Performer Location Encounter Start Date Encounter Closed Date Diagnosis/Indication Diagnosis SNOMED-CT Code Diagnosis ICD10 Code Diagnosis IMO Codes Diagnosis Note [id number] Clayton Rojas, [facility] [place] [address] [facility] [address] [place] [address] 04/03/2024 09:28:38 04/04/2024 13:30:16 Adult health examination 885849453 Z00.00 Healthy diet and exercise, HCM as discussed Metabolic syndrome X 237 855805 E88.810 Healthy diet exercise weight reduction labs as ordered Hyperlipidemia 19850756 E78.5 Increase physical activity, heart healthy diet, drink water Eat a variety of foods every day. Good choices include fruits, vegetables , whole grains (like oatmeal), dried beans and peas, and nuts and seeds. Other good choices are soy products (like tofu) and fat-free or low-fat dairy products. Use olive and canola oils instead of butter, margarine, or hydrogenat ed or partially hydrogenat ed oils. (Canola oil margarine without trans fat is fine.) Replace red meat with fish, poultry, and soy protein (like tofu). Limit processed and packaged foods like chips, crackers, and cookies. Bake, broil, or steam foods instead of frying them. Be physically active. Get plenty of exercise every day. Go for a walk or jog, ride your bike, or play sports with friends. Stay at a healthy weight or lose weight by making the changes in eating and physical activity listed above. Losing just a small amount of weight, even 5 to 10 pounds, can reduce your risk for having a heart attack or stroke. Do not smoke. Smoking can increase the chance you will have a heart attack. If you need help quitting, talk to your doctor about stop-smoki ng programs and medicines. These can increase your chances of quitting for good. If you take medicine for high cholestero l, be sure to take it every day. Gastroesop hageal reflux disease without esophagitis 912238645 K21.9 1 .Avoid lying flat 3 to 4 hours after eating or drinking. 2. Don't eat for 3 hours prior to going to sleep 3. Elevate the head of bed 4-8 inches. 4. Avoid tight clothing around the waist. 5. Decrease dietary fat intake. 6. Avoid acidic foods (citrus and tomato-bas ed products), alcohol, caffeinate d beverages, chocolate, onions, garlic, salt, and peppermint oil. 7. Eat several smaller meals during the day instead of large meals. 8. Avoid drinking coffee, or carbonated beverages. 9. Weight loss can help with symptoms, try to diet and exercise. 10. Stop smoking. Vitamin D deficiency 362 17685 E55.9 This is a stable chronic condition continue current meds follow-up routine Generalize d anxiety disorder 02371586 F41.1 not controlled increase meds to 50 mg zoloft - The pharmacolo gic and non-pharma cologic treatments discussed. No SI/HI. Take medication as prescribed - Take medication at the same time every day and do not miss doses- Medication will take 2-3 weeks to reach full effect- Do not suddenly stop medication without consulting your provider first- Take time for yourself every day, get plenty of rest- Exercise can help elevate moods- If you do not have a good support system, talk to your provider about counseling options- Sometimes antidepres claudio medication s can make suicidal thoughts worse. If you are experienci ng these thoughts you should report to the ER immediatel y- You can also call the suicide hotline at 3-833-348- 5566 Increased frequency of urination 537590604 R35.0 I suspect BPH but patient declined a prostate examjanet zimmermna, he also is prediabeti c so we are going to get some labs to include a hemoglobin A1c and a PSA we did discuss further evaluation and workup based on results [id number] JACOB Grubbs [facility] [address] [facility] [address] [place] [address] 06/10/2024 09:25:56 06/11/2024 14:46:43 Gastroesophageal reflux disease without esophagitis 031834540 K21.9 1 .Avoid lying flat 3 to 4 hours after eating or drinking. 2. Don't eat for 3 hours prior to going to sleep 3. Elevate the head of bed 4-8 inches. 4. Avoid tight clothing around the waist. 5. Decrease dietary fat intake. 6. Avoid acidic foods (citrus and tomato-bas ed products), alcohol, caffeinate d beverages, chocolate, onions, garlic, salt, and peppermint oil. 7. Eat several smaller meals during the day instead of large meals. 8. Avoid drinking coffee, or carbonated beverages. 9. Weight loss can help with symptoms, try to diet and exercise. 10. Stop smoking. Hyperlipidemia 94980393 E78.5 Increase physical activity, heart healthy diet, drink waterEat a variety of foods every day. Good choices include fruits, vegetables , whole grains (like oatmeal), dried beans and peas, and nuts and seeds. Other good choices are soy products (like tofu) and fat-free or low-fat dairy products. U se olive and canola oils instead of butter, margarine, or hydrogenat ed or partially hydrogenat ed oils. (Canola oil margarine without trans fat is fine.) R eplace red meat with fish, poultry, and soy protein (like tofu). L imit processed and packaged foods like chips, crackers, and cookies. B charly, broil, or steam foods instead of frying them. B e physically active. Get plenty of exercise every day. Go for a walk or jog, ride your bike, or play sports with friends. S galen at a healthy weight or lose weight by making the changes in eating and physical activity listed above. Losing just a small amount of weight, even 5 to 10 pounds, can reduce your risk for having a heart attack or stroke. D o not smoke. Smoking can increase the chance you will have a heart attack. If you need help quitting, talk to your doctor about stop-smoki ng programs and medicines. These can increase your chances of quitting for good. I f you take medicine for high cholestero l, be sure to take it every day. Metabolic syndrome X 237 347944 E88.810 Healthy diet exercise weight reduction labs as ordered Vitamin D deficiency 347 15844 E55.9 This is a stable chronic condition continue current meds follow-up routine Chronic low back pain 27 4122484 M54.50 had x-ray in past, meds as ordered, PT, next step if this fails is MRI Obesity 181569647 E66.9 Repeat was the same patient is in pain we will check blood pressure at follow up visit Elevated blood-pressure reading without diagnosis of hypertension 461692934 R03.0 [id number] JACOB Grubbs [facility] [address] [address] 07/25/2024 10:24:20 09/05/2024 09:07:38 Gastroesophageal reflux disease without esophagitis 040608929 K21.9 this is well controlled with diet and meds, CPM, f/u 6 months 1 .Avoid lying flat 3 to 4 hours after eating or drinking.2 . Don't eat for 3 hours prior to going to sleep3. Elevate the head of bed 4-8 inches.4. Avoid tight clothing around the waist.5. Decrease dietary fat intake.6. Avoid acidic foods (citrus and tomato-bas ed products), alcohol, caffeinate d beverages, chocolate, onions, garlic, salt, and peppermint oil.7. Eat several smaller meals during the day instead of large meals.8. Avoid drinking coffee, or carbonated beverages. 9. Weight loss can help with symptoms, try to diet and exercise.1 0. Stop smoking. Hyperlipidemia 25101515 E78.5 this is well controlled , CPM pending new labs in september Increase physical activity, heart healthy diet, drink waterEat a variety of foods every day. Good choices include fruits, vegetables , whole grains (like oatmeal), dried beans and peas, and nuts and seeds. Other good choices are soy products (like tofu) and fat-free or low-fat dairy products. U se olive and canola oils instead of butter, margarine, or hydrogenat ed or partially hydrogenat ed oils. (Canola oil margarine without trans fat is fine.) R eplace red meat with fish, poultry, and soy protein (like tofu). L imit processed and packaged foods like chips, crackers, and cookies. B charly, broil, or steam foods instead of frying them. B e physically active. Get plenty of exercise every day. Go for a walk or jog, ride your bike, or play sports with friends. S galen at a healthy weight or lose weight by making the changes in eating and physical activity listed above. Losing just a small amount of weight, even 5 to 10 pounds, can reduce your risk for having a heart attack or stroke. D o not smoke. Smoking can increase the chance you will have a heart attack. If you need help quitting, talk to your doctor about stop-smoki ng programs and medicines. These can increase your chances of quitting for good. I f you take medicine for high cholestero l, be sure to take it every day. Obesity 790075839 E66.9 Repeat was the same patient is in pain we will check blood pressure at follow up visit Vitamin D deficiency 347 40870 E55.9 This is a stable chronic condition continue current meds follow-up routine Increased frequency of urination 057926595 R35.0 I suspect BPH but patient declined a prostate examjanet zimmerman, he also is prediabeti c so we are going to get some labs to include a hemoglobin A1c and a PSA we did discuss further evaluation and workup based on results Chronic low back pain 27 0142903 M54.50 had x-ray in past, meds as ordered, PT, next step if this fails is MRI [id number] Clayton Rojas, DO [facility] [place] [address] [facility] [address] [place] [address] 10/01/2024 10:04:02 10/07/2024 10:46:42 Hyperlipidemia 61489918 E78.5 Increase physical activity, heart healthy diet, drink water Eat a variety of foods every day. Good choices include fruits, vegetables , whole grains (like oatmeal), dried beans and peas, and nuts and seeds. Other good choices are soy products (like tofu) and fat-free or low-fat dairy products. Use olive and canola oils instead of butter, margarine, or hydrogenat ed or partially hydrogenat ed oils. (Canola oil margarine without trans fat is fine.) Replace red meat with fish, poultry, and soy protein (like tofu). Limit processed and packaged foods like chips, crackers, and cookies. Bake, broil, or steam foods instead of frying them. Be physically active. Get plenty of exercise every day. Go for a walk or jog, ride your bike, or play sports with friends. Stay at a healthy weight or lose weight by making the changes in eating and physical activity listed above. Losing just a small amount of weight, even 5 to 10 pounds, can reduce your risk for having a heart attack or stroke. Do not smoke. Smoking can increase the chance you will have a heart attack. If you need help quitting, talk to your doctor about stop-smoki ng programs and medicines. These can increase your chances of quitting for good. If you take medicine for high cholestero l, be sure to take it every day. Gastroesop hageal reflux disease without esophagitis 992397172 K21.9 1 .Avoid lying flat 3 to 4 hours after eating or drinking. 2. Don't eat for 3 hours prior to going to sleep 3. Elevate the head of bed 4-8 inches. 4. Avoid tight clothing around the waist. 5. Decrease dietary fat intake. 6. Avoid acidic foods (citrus and tomato-bas ed products), alcohol, caffeinate d beverages, chocolate, onions, garlic, salt, and peppermint oil. 7. Eat several smaller meals during the day instead of large meals. 8. Avoid drinking coffee, or carbonated beverages. 9. Weight loss can help with symptoms, try to diet and exercise. 10. Stop smoking. Vitamin D deficiency 347 54425 E55.9 This is a stable chronic condition continue current meds follow-up routine Generalize d anxiety disorder 20051973 F41.1 not controlled increase meds to 50 mg zoloft - The pharmacolo gic and non-pharma cologic treatments discussed. No SI/HI. Take medication as prescribed - Take medication at the same time every day and do not miss doses- Medication will take 2-3 weeks to reach full effect- Do not suddenly stop medication without consulting your provider first- Take time for yourself every day, get plenty of rest- Exercise can help elevate moods- If you do not have a good support system, talk to your provider about counseling options- Sometimes antidepres claudio medication s can make suicidal thoughts worse. If you are experienci ng these thoughts you should report to the ER immediatel y- You can also call the suicide hotline at 0-719-444- 2554 Increased frequency of urination 996126744 R35.0 I suspect BPH but patient declined a prostate examinatio n, he also is prediabeti c so we are going to get some labs to include a hemoglobin A1c and a PSA we did discuss further evaluation and workup based on results Type 2 darline betes mellitus without complication 460268773 E11.9 this is new, starting meds, will space out start date, [id number] Clayton Rojas, DO [facility] [place] [address] [address] 10/10/2024 09:55:13 10/11/2024 08:41:38 Gastroesophageal reflux disease 308746718 K21.9 This is a well controlled chronic condition, continue current treatment plan follow up six-month 1 .Avoid lying flat 3 to 4 hours after eating or drinking. 2. Don't eat for 3 hours prior to going to sleep 3. Elevate the head of bed 4-8 inches. 4. Avoid tight clothing around the waist. 5. Decrease dietary fat intake. 6. Avoid acidic foods (citrus and tomato-bas ed products), alcohol, caffeinate d beverages, chocolate, onions, garlic, salt, and peppermint oil. 7. Eat several smaller meals during the day instead of large meals. 8. Avoid drinking coffee, or carbonated beverages. 9. Weight loss can help with symptoms, try to diet and exercise. 10. Stop smoking. Hyperlipidemia 11683932 E78.5 Increase physical activity, heart healthy diet, drink water Eat a variety of foods every day. Good choices include fruits, vegetables , whole grains (like oatmeal), dried beans and peas, and nuts and seeds. Other good choices are soy products (like tofu) and fat-free or low-fat dairy products. Use olive and canola oils instead of butter, margarine, or hydrogenat ed or partially hydrogenat ed oils. (Canola oil margarine without trans fat is fine.) Replace red meat with fish, poultry, and soy protein (like tofu). Limit processed and packaged foods like chips, crackers, and cookies. Bake, broil, or steam foods instead of frying them. Be physically active. Get plenty of exercise every day. Go for a walk or jog, ride your bike, or play sports with friends. Stay at a healthy weight or lose weight by making the changes in eating and physical activity listed above. Losing just a small amount of weight, even 5 to 10 pounds, can reduce your risk for having a heart attack or stroke. Do not smoke. Smoking can increase the chance you will have a heart attack. If you need help quitting, talk to your doctor about stop-smoki ng programs and medicines. These can increase your chances of quitting for good. If you take medicine for high cholestero l, be sure to take it every day. Type 2 darline betes mellitus without complication 270545548 E11.9 this is new, starting meds, will space out start date, Obesity 929770367 E66.9 Repeat was the same patient is in pain we will check blood pressure at follow up visit [id number] Clayton Rojas, DO [facility] [place] [address] [address] 11/28/2024 11:35:16 11/29/2024 08:08:00 Gastroesophageal reflux disease 892949547 K21.9 This is a well controlled chronic condition, continue current treatment plan follow up six-month 1 .Avoid lying flat 3 to 4 hours after eating or drinking. 2. Don't eat for 3 hours prior to going to sleep 3. Elevate the head of bed 4-8 inches. 4. Avoid tight clothing around the waist. 5. Decrease dietary fat intake. 6. Avoid acidic foods (citrus and tomato-bas ed products), alcohol, caffeinate d beverages, chocolate, onions, garlic, salt, and peppermint oil. 7. Eat several smaller meals during the day instead of large meals. 8. Avoid drinking coffee, or carbonated beverages. 9. Weight loss can help with symptoms, try to diet and exercise. 10. Stop smoking. Hyperlipidemia 67948793 E78.5 Increase physical activity, heart healthy diet, drink water Eat a variety of foods every day. Good choices include fruits, vegetables , whole grains (like oatmeal), dried beans and peas, and nuts and seeds. Other good choices are soy products (like tofu) and fat-free or low-fat dairy products. Use olive and canola oils instead of butter, margarine, or hydrogenat ed or partially hydrogenat ed oils. (Canola oil margarine without trans fat is fine.) Replace red meat with fish, poultry, and soy protein (like tofu). Limit processed and packaged foods like chips, crackers, and cookies. Bake, broil, or steam foods instead of frying them. Be physically active. Get plenty of exercise every day. Go for a walk or jog, ride your bike, or play sports with friends. Stay at a healthy weight or lose weight by making the changes in eating and physical activity listed above. Losing just a small amount of weight, even 5 to 10 pounds, can reduce your risk for having a heart attack or stroke. Do not smoke. Smoking can increase the chance you will have a heart attack. If you need help quitting, talk to your doctor about stop-smoki ng programs and medicines. These can increase your chances of quitting for good. If you take medicine for high cholestero l, be sure to take it every day. Type 2 darline betes mellitus 27835550 E11.9 38880495 This is a well controlled chronic condition continue current treatment plan follow up six-month check blood sugars as directed , record and bring on visit. yearly dilated eye exam. check feet daily and report calluses, corns or ulcers. 30 minutes exercise daily Diabetic diet, conservati ve carbohydra arnoldo, low in fat, high fiber, whole grains, lean meat Type 2 darline betes mellitus without complication 955906760 E11.9 this is new, starting meds, will space out start date, Obese class II [id number] 1 18515 E66.812 [id number] Repeat was the same patient is in pain we will check blood pressure at follow up visit Bilateral chronic pain of upper limbs [id number] 7948757 M25.511 M25.512 G89.29 [id number] meds and exercises, next step x-rays and PT, monitor sugars in excellent control [id number] Clayton Rojas, DO [facility] [place] [address] [facility] [address] [place] [address] 02/05/2025 10:11:03 02/06/2025 11:32:54 Ventricular tachycardia 69280320 I47.20 This is a stable chronic condition, continue current treatment plan, follow up six-month Hyperlipidemia 59665999 E78.5 This is a stable chronic condition, continue current treatment plan, follow up six-monthI ncrease physical activity, heart healthy diet, drink waterEat a variety of foods every day. Good choices include fruits, vegetables , whole grains (like oatmeal), dried beans and peas, and nuts and seeds. Other good choices are soy products (like tofu) and fat-free or low-fat dairy products. U se olive and canola oils instead of butter, margarine, or hydrogenat ed or partially hydrogenat ed oils. (Canola oil margarine without trans fat is fine.) R eplace red meat with fish, poultry, and soy protein (like tofu). L imit processed and packaged foods like chips, crackers, and cookies. B charly, broil, or steam foods instead of frying them. B e physically active. Get plenty of exercise every day. Go for a walk or jog, ride your bike, or play sports with friends. S galen at a healthy weight or lose weight by making the changes in eating and physical activity listed above. Losing just a small amount of weight, even 5 to 10 pounds, can reduce your risk for having a heart attack or stroke. D o not smoke. Smoking can increase the chance you will have a heart attack. If you need help quitting, talk to your doctor about stop-smoki ng programs and medicines. These can increase your chances of quitting for good. I f you take medicine for high cholestero l, be sure to take it every day. Type 2 darline betes mellitus 12975048 E11.9 056996 This is a well controlled chronic condition continue current treatment plan follow up six-month check blood sugars as directed , record and bring on visit. yearly dilated eye exam. check feet daily and report calluses, corns or ulcers. 30 minutes exercise daily Diabetic diet, conservati ve carbohydra arnoldo, low in fat, high fiber, whole grains, lean meat Body mass index 30+ - obesity [id number] E66.9 Gastroesop hageal reflux disease [id number] K21.9 This is a well controlled chronic condition, continue current treatment plan follow up six-month 1 .Avoid lying flat 3 to 4 hours after eating or drinking. 2. Don't eat for 3 hours prior to going to sleep 3. Elevate the head of bed 4-8 inches. 4. Avoid tight clothing around the waist. 5. Decrease dietary fat intake. 6. Avoid acidic foods (citrus and tomato-bas ed products), alcohol, caffeinate d beverages, chocolate, onions, garlic, salt, and peppermint oil. 7. Eat several smaller meals during the day instead of large meals. 8. Avoid drinking coffee, or carbonated beverages. 9. Weight loss can help with symptoms, try to diet and exercise. 10. Stop smoking. Screening for malignant neoplasm of colon [id number] Z12.11 [id number] Clayton Rojas, DO [facility] [place] [address] [place] [address] 03/06/2025 09:18:11 03/07/2025 09:18:56 Ventricular tachycardia [id number] I47.20 This is a stable chronic condition, continue current treatment plan, follow up six-month Hyperlipidemia [id number] E78.5 This is a stable chronic condition, continue current treatment plan, follow up six-monthI ncrease physical activity, heart healthy diet, drink waterEat a variety of foods every day. Good choices include fruits, vegetables , whole grains (like oatmeal), dried beans and peas, and nuts and seeds. Other good choices are soy products (like tofu) and fat-free or low-fat dairy products. U se olive and canola oils instead of butter, margarine, or hydrogenat ed or partially hydrogenat ed oils. (Canola oil margarine without trans fat is fine.) R eplace red meat with fish, poultry, and soy protein (like tofu). L imit processed and packaged foods like chips, crackers, and cookies. B charly, broil, or steam foods instead of frying them. B e physically active. Get plenty of exercise every day. Go for a walk or jog, ride your bike, or play sports with friends. S galen at a healthy weight or lose weight by making the changes in eating and physical activity listed above. Losing just a small amount of weight, even 5 to 10 pounds, can reduce your risk for having a heart attack or stroke. D o not smoke. Smoking can increase the chance you will have a heart attack. If you need help quitting, talk to your doctor about stop-smoki ng programs and medicines. These can increase your chances of quitting for good. I f you take medicine for high cholestero l, be sure to take it every day. Type 2 darline betes mellitus [id number] E11.9 221486 This is a well controlled chronic condition continue current treatment plan follow up six-month check blood sugars as directed , record and bring on visit. yearly dilated eye exam. check feet daily and report calluses, corns or ulcers. 30 minutes exercise daily Diabetic diet, conservati ve carbohydra arnoldo, low in fat, high fiber, whole grains, lean meat Gastroesop hageal reflux disease [id number] K21.9 This is a well controlled chronic condition, continue current treatment plan follow up six-month 1 .Avoid lying flat 3 to 4 hours after eating or drinking. 2. Don't eat for 3 hours prior to going to sleep 3. Elevate the head of bed 4-8 inches. 4. Avoid tight clothing around the waist. 5. Decrease dietary fat intake. 6. Avoid acidic foods (citrus and tomato-bas ed products), alcohol, caffeinate d beverages, chocolate, onions, garlic, salt, and peppermint oil. 7. Eat several smaller meals during the day instead of large meals. 8. Avoid drinking coffee, or carbonated beverages. 9. Weight loss can help with symptoms, try to diet and exercise. 10. Stop smoking. Obese class II [id number] 1 53685 E66.812 E66.3 [id number] Repeat was the same patient is in pain we will check blood pressure at follow up visit Low back strain [id number] 1 S39.012D [id number] meds and PT, monitor sugars Pain of ri ght shoulder joint [id number] M25.511 325827 meds and exercises, next step x-rays and PT, monitor sugars in excellent control Screening for malignant neoplasm of colon [id number] Z12.11 [id number] Health Concerns Section Related Observation LastModified by Organization Detai ls LastModified Time None Recorded Concern Status LastModified by Organization Details LastModified Time None Recorded Advance Directives Directive None Recorded Payers Insurance Date Sequence Insurance Name Policy Number Policy Rothman Covered Member ID Rothman Member ID Guarantor Name 03/03/2025 1 [facility] ([facility]) [id number] [place] [id number] [place] Notes Date Note Type Note Provider Name and Address Organization Details Recorded Time 10/01/2024 text/html ROS as noted in the HPI Patient is having a video visit for six-month follow up for the following medical elpfecgejo-emg-lgogrj- Exercise: lately not-colonoscopy:last year UTD-shingles: got first shot-Flu: Declined-Covid 19: UTD-Pneumococcal 13 and 23: we discussed-specialist: noneDerangement of medial meniscus of right knee- overall this is improved, had surgery and repair and doing much better,Dysmetabolic syndrome X- diet controlledMixed hyperlipidemia- diet controlledReflux gastritis- this is increased with stress, depends on diet, seems to burp a lot, also had a coughVitamin D deficiency- Not takinganxiety-taking zoloft, a little better, no SI/HI JACOB Grubbs Attn: Accounting,[address] [facility], [place], [address], [facility] 10/01/2024 10:15:15 10/10/2024 text/html ROS as noted in the HPI Patient is in for routine follow up for the following medical cnfzfdnozp-dkn-ctwsfq- Exercise: lately not-colonoscopy:last year UTD-shingles: got first shot-Flu: Declined-Covid 19: UTD-Pneumococcal and : we discussed-specialist: noneDerangement of medial meniscus of right knee- overall this is improved, had surgery and repair and doing much better,Mixed hyperlipidemia- diet controlledReflux gastritis- this is increased with stress, depends on diet, seems to burp a lot, also had a coughVitamin D deficiency- Not takinganxiety-taking zoloft, a little better, no SI/HIdiabetes JACOB Grubbs Attn: Accounting,[address] [facility], [place], [address], [facility] 10/10/2024 10:17:57 11/28/2024 text/html ROS as noted in the HPI Patient is in for routine follow up for the following medical gecjjwqegm-pay-zmbkdo- Exercise: lately not-colonoscopy:last year UTD-shingles: got first shot-Flu: Declined-Covid 19: UTD-Pneumococcal : we discussed-specialist: noneDerangement of medial meniscus of right knee- overall this is improved, had surgery and repair and doing much better,Mixed hyperlipidemia- diet controlledReflux gastritis- this is increased with stress, depends on diet, seems to burp a lot, also had a coughVitamin D deficiency- Not takinganxiety-taking zoloft, a little better, no SI/HI he cut back to 25 mgdiabetes Last A1C:6.5Goal A1C less than:7.0%Current Therapy:metforminStati n:yesACE/ARB:yesFoot Exam:completed in the past 12 months-negativeNephrop athy Screening:completed in the past 12 months- negativePneumovax 23:UTDEye Exam:due- recommended annual dilated eye examPatient Education:healthy diet:exercise:weight loss:foot care:complications of uncontrolled diabetes:medication compliance:Next Visit:patient having bilateral shoulder pains, does not recall injury but did pull it JACOB Grubbs Attn: Accounting,[address] [facility], [place], [address], [facility] 11/28/2024 12:39:20 02/05/2025 text/html ROS as noted in the HPI Patient is in for routine follow up for the following medical jjcmbqzslt-iif-sjkjto- Exercise: lately not-colonoscopy:last year UTD-shingles: got first shot-Flu: Declined-Covid 19: UTD-Pneumococcal 13 and 23: we discussed-specialist: noneDerangement of medial meniscus of right knee- overall this is improved, had surgery and repair and doing much better,Mixed hyperlipidemia- diet controlledReflux gastritis- this is increased with stress, depends on diet, seems to burp a lot, also had a coughVitamin D deficiency- Not takinganxiety-taking zoloft, a little better, no SI/HI he cut back to 25 mgdiabetes Last A1C:6.5Goal A1C less than:7.0%Current Therapy:metforminStati n:yesACE/ARB:yesFoot Exam:completed in the past 12 months-negativeNephrop athy Screening:completed in the past 12 months- negativePneumovax 23:UTDEye Exam:due- recommended annual dilated eye examPatient Education:healthy diet:exercise:weight loss:foot care:complications of uncontrolled diabetes:medication compliance:Next Visit: JACOB Grubbs Attn: Accounting,[address] [facility], [place], [address], [facility] 02/05/2025 11:24:10 03/06/2025 text/html ROS as noted in the HPI Patient is in for routine follow up for the following medical yauxzvhivn-bii-bixomm- Exercise: lately not-colonoscopy:last year UTD-shingles: got first shot-Flu: Declined-Covid 19: UTD-Pneumococcal 13 and 23: we discussed-specialist: noneDerangement of medial meniscus of right knee- overall this is improved, had surgery and repair and doing much better,Mixed hyperlipidemia- diet controlledReflux gastritis- this is increased with stress, depends on diet, seems to burp a lot, also had a coughVitamin D deficiency- Not takinganxiety-taking zoloft, a little better, no SI/HI he cut back to 25 mgdiabetes Last A1C:6.6Goal A1C less than:7.0%Current Therapy:metforminStati n:yesACE/ARB:yesFoot Exam:completed in the past 12 months-negativeNephrop athy Screening:completed in the past 12 months- negativePneumovax 23:UTDEye Exam:due- recommended annual dilated eye examPatient Education:healthy diet:exercise:weight loss:foot care:complications of uncontrolled diabetes:medication compliance:Next Visit:pmhx back issues, having flare, asking for prednisone ISIAH Gonzalez, [place] - [facility] 03/06/2025 09:54:25
--- NOTE | 2025-05-21 05:11 | ECG_ITS ---
Test Date: 2025-05-21 05:17:43 Measurements Intervals [place] Rate: 82 P: 25 VT: 161 QRS: -25 QRSD: 122 T: 70 QT: 382 QTc: 447 Interpretive Statements SINUS RHYTHM BORDERLINE LEFT AXIS DEVIATION [QRS AXIS < -20] MODERATE INTRAVENTRICULAR CONDUCTION DELAY [110+ ms QRS DURATION] NONSPECIFIC ST & T-WAVE ABNORMALITY No previous ECG available for comparison Electronically Signed On 05-21-2025 06:38:59 CURB SETTER by Oswaldo Mesa M.D.
--- NOTE | 2025-05-21 05:25 | ECG_ITS ---
Test Date: 2025-05-21 08:31:49 Measurements Intervals [place] Rate: 71 P: 24 VT: 171 QRS: -25 QRSD: 121 T: 65 QT: 387 QTc: 422 Interpretive Statements SINUS RHYTHM BORDERLINE LEFT AXIS DEVIATION [QRS AXIS < -20] MODERATE INTRAVENTRICULAR CONDUCTION DELAY [110+ ms QRS DURATION] NONSPECIFIC T-WAVE ABNORMALITY ABNORMAL ECG Compared to ECG 05/21/2025 05:17:43 No significant changes Electronically Signed On 05-21-2025 14:37:02 BROADCAST MAINTENANCE ENGINEER by Tony Ortiz M.D.
--- NOTE | 2025-05-21 05:28 | ED_ITS ---
HPI - General Adult General Chief complaint: Weakness <Nghia Weber MD - Last Filed: 05/21/25 06:26> Stated complaint: Weakness <Nghia Weber MD - Last Filed: 05/21/25 06:26> Time Seen by Provider: 05/21/25 05:08 <Nghia Weber MD - Last Filed: 05/21/25 06:26> History of Present Illness HPI narrative: this is a 60-year-old male history of anxiety, hypertension, diabetes presenting for an episode of weakness. Patient said he went to sleep last night at 9:00 p.m. feeling normal. At 425 he woke up feeling weak all over. This lasted for 1 minute before resolving. During this time he did have belching which she attributes to his GERD or also being nervous. patient took some Tums and Pepcid at home with some improvement. Patient had a feeling overwhelming dread during this episode. Patient admits that he has increased fear of lately due to his declining health. Patient denies any headache, fevers chills chest pain difficulty breathing abdominal pain urinary symptoms nausea vomiting diarrhea difficulty speaking or weakness to any extremity. Patient had anxiety in the past requiring medications although he had stopped taking them several months ago as his condition improved. <Nghia Weber MD - Last Filed: 05/21/25 06:26> Related Data Home medications: Home Medications ?Medication ?Instructions ?Recorded ?Confirmed ?Last Taken ?Type valsartan 80 mg tablet 80 mg PO DAILY 06/13/2006/1601/11/22 08:00 History aspirin 81 mg chewable tablet 81 mg PO DAILY 01/12/22 07/02/23 01/11/22 08:00 History famotidine 40 mg tablet 1 tablet PO DAILY 01/12/22 1 09/02/22 01/11/22 08:00 History albuterol sulfate 90 mcg/actuation inhalation 07/02/23 Unknown History aerosol inhaler doxycycline hyclate 100 mg capsule mg 07/02/23 Unknow n History metoprolol succinate 25 mg mg PO 07/02/23 Unknown His tory tablet,extended release 24 hr <Nghia Weber MD - Last Filed: 05/21/25 06:26> Allergies/adverse reactions: Allergies Allergy/AdvReac Type Severity Reaction Status Date / Time No Known Allergies Allergy Verified 09/08/24 07:49 <Nghia Weber MD - Last Filed: 05/21/25 06:26> [facility] Past Medical History Medical History: Medical History (Updated 05/21/25 @ 09:42 by Ariana Burr MD) GERD (gastroesophageal reflux disease) Hypertension Wide-complex tachycardia High cholesterol <Nghia Weber MD - Last Filed: 05/21/25 06:26> Family History Family History: Family History (Updated 01/12/22 @ 10:05 by Crissy Wilson MD) Sibling Diabetes mellitus Lupus Heart disease Father Diabetes mellitus Parkinsons disease Dementia Mother Dementia Alzheimer's dz <Nghia Weber MD - Last Filed: 05/21/25 06:26> Social History Social History: Social History (Updated 01/12/22 @ 10:04 by Crissy Wilson MD) Social History: , 3 sons, 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 Alcohol intake: current Drinks per week: 2 Substance use: never Living arrangements: with family Occupation/Education: occupation Spiritual care concerns: No <Nghia Weber MD - Last Filed: 05/21/25 06:26> Exam 2 Narrative: APPEARANCE: Anxious appearing Head: atraumatic. EYES: EOMI, NOSE: Atraumatic NECK: Trachea midline RESPIRATORY: No increased rate of breathing Clear auscultation CARDIOVASCULAR: RRR, no peripheral edema ABDOMINAL: Non-distended soft nontender MUSCULOSKELETAl: No obvious deformities NEURO: Alert. Cranial nerves 2-12 grossly intact. Sensation light touch, motor function cerebellar function intact for 4 extremities. Gait exam was normal. SKIN:: Warm, dry. Normal color PSYCHIATRIC: Normal affect <Nghia Weber MD - Last Filed: 05/21/25 06:26> Course Course Emergency Course: Patient signed out to me pending repeat troponin. There had been concern based on first EKG although not felt to be STEMI despite pre-populated algorithm. Patient had approximately 1 minute episode of generalized weakness. This resolved and has not returned. Patient was worried because when something similar happened previously he had been found to have a cardiac issue that required ablation although this procedure was performed he has been fine since. Does not follow regularly with a spinner hand. Has a primary care physician. He states his next appointment is he believes in July. He was concerned because his blood pressure has been elevated while here. The last 5 or 6 readings been in the 150s over 90s. He states that he had already taken his antihypertensive this morning. I advised he call his primary care physician for an ED follow-up appointment. Chest x-ray reviewed. Labs reviewed and appear normal. Patient notes that he has a history of GERD for which he takes famotidine and that he has frequent eructation. He has already undergone EGD to evaluate this as well. Name/referral for a spinner hand is given although I did advise that he can try to reestablish with his previous spinner hand or go through his primary care physician for referral if desired alternatively. He is otherwise stable for discharge. Not need of work note. <Ariana Burr MD - Last Filed: 05/21/25 09:42> Vital Signs Vital signs: Vital Signs Pulse Rate 84 05/21/25 05:05 Respiratory Rate 18 05/21/25 05:05 Blood Pressure 191/95 H 05/21/25 05:05 Pulse Oximetry 96 05/21/25 05:05 Oxygen Delivery Room Air 05/21/25 05:05 Pulse Rate 66 05/21/25 08:01 Respiratory Rate 14 05/21/25 08:01 Blood Pressure 151/95 H 05/21/25 08:01 Pulse Oximetry 96 05/21/25 08:01 Oxygen Delivery Room Air 05/21/25 05:05 <Nghia Weber MD - Last Filed: 05/21/25 06:26> Vital Signs Pulse Rate 84 05/21/25 05:05 Respiratory Rate 18 05/21/25 05:05 Blood Pressure 191/95 H 05/21/25 05:05 Pulse Oximetry 96 05/21/25 05:05 Oxygen Delivery Room Air 05/21/25 05:05 Pulse Rate 66 05/21/25 08:01 Respiratory Rate 14 05/21/25 08:01 Blood Pressure 151/95 H 05/21/25 08:01 Pulse Oximetry 96 05/21/25 08:01 Oxygen Delivery Room Air 05/21/25 05:05 <Ariana Burr MD - Last Filed: 05/21/25 09:42> Medical Decision Making MDM Narrative Medical decision making narrative: -Course: 60-year-old male history of anxiety presenting with a 1 minute episode generalized body weakness. He is currently asymptomatic. physical exam is unremarkable. His neurologic exam is normal. CT brain and chest pain workup obtained. Patient was signed out to the oncoming physician pending completion of his workup. -DDX includes but is not limited to: Anxiety, ACS, GERD, dehydration pneumonia, viral illness <Nghia Weber MD - Last Filed: 05/21/25 06:26> Vital Signs Vital Signs: Vital Signs Pulse Rate 84 05/21/25 05:05 Respiratory Rate 18 05/21/25 05:05 Blood Pressure 191/95 H 05/21/25 05:05 Pulse Oximetry 96 05/21/25 05:05 Oxygen Delivery Room Air 05/21/25 05:05 Pulse Rate 66 05/21/25 08:01 Respiratory Rate 14 05/21/25 08:01 Blood Pressure 151/95 H 05/21/25 08:01 Pulse Oximetry 96 05/21/25 08:01 Oxygen Delivery Room Air 05/21/25 05:05 <Nghia Weber MD - Last Filed: 05/21/25 06:26> Vital Signs Pulse Rate 84 05/21/25 05:05 Respiratory Rate 18 05/21/25 05:05 Blood Pressure 191/95 H 05/21/25 05:05 Pulse Oximetry 96 05/21/25 05:05 Oxygen Delivery Room Air 05/21/25 05:05 Pulse Rate 66 05/21/25 08:01 Respiratory Rate 14 05/21/25 08:01 Blood Pressure 151/95 H 05/21/25 08:01 Pulse Oximetry 96 05/21/25 08:01 Oxygen Delivery Room Air 05/21/25 05:05 <Ariana Burr MD - Last Filed: 05/21/25 09:42> Lab Data Result diagrams: 05/21/25 05:53 05/21/25 05:53 <Nghia Weber MD - Last Filed: 05/21/25 06:26> Labs: Lab Results 05/21/25 05/21/25 05/21/25 Range/Units 05:53 05:53 05:54 WBC 6.6 (4.5-10.0) K/mm3 RBC 4.85 (4.6-6.20) M/mm3 Hgb 15.3 (14.0-18.0) g/dL Hct 47.6 (42.0-52.0) % MCV 98.1 (80-100) fl MCH 31.5 (26-34) pg MCHC 32.1 (32-36) g/dl RDW 13.4 (11.5-14.5) % Plt Count 209 (150-375) k/mm3 MPV 9.8 (7.4-10.4) fl Immature Gran % (Auto) 0.5 (0-0.5) % Neut % (Auto) 57.1 (45.5-73.1) % Lymph % (Auto) 31.9 (18.3-44.2) % Emmons % (Auto) 8.9 H (2.6-8.5) % Eos % (Auto) 1.1 (0-4.4) % Baso % (Auto) 0.5 (0.2-1.2) % Lymph # (Auto) 2.11 (0.9-3.2) K/mm3 Emmons # (Auto) 0.6 (0.1-0.6) K/mm3 Eos # (Auto) 0.1 (0-0.3) K/mm3 Baso # (Auto) 0.0 (0.0-0.1) K/mm3 Abs Immat Gran (auto) 0.03 (0.00-0.031) K/mm3 Absolute Neuts (auto) 3.8 (1.3-6.7) K/mm3 Absolute Nucleated RBC 0.000 (0.0-0.012) K/mm3 Nucleated RBC % 0.0 (0.0-0.2) % PT 12.8 (11.1-14.7) Seconds INR 0.9 APTT 28.2 (22.3-36.8) Seconds Sodium 140 (137-145) mmol/L Potassium 4.1 (3.4-5.0) mmol/L Chloride 106 (98-107) mmol/L Carbon Dioxide 26 (22-30) mmol/L Anion Gap 8 (4-12) mmol/L BUN 16 (9-20) mg/dL Creatinine 0.74 (0.7-1.3) mg/dL Estim Creat Clear Calc Not Reportable Estimated GFR > 60 (59 - ) Glucose 125 H (65-110) mg/dL Calcium 9.5 (8.4-10.2) mg/dL Total Bilirubin 1.1 (0.2-1.3) mg/dL AST 49 (17-59) U/L ALT 54 H (6-50) U/L Alkaline Phosphatase 113 (38-126) U/L Troponin I < 0.012 Cancelled (0.000-0.034) ng/mL Total Protein 8.0 (6.3-8.2) g/dL Albumin 4.7 (3.5-5.1) g/dL Lipase 80 (23-300) U/L Urine Color Yellow (Yellow) Urine Appearance Clear (Clear) Urine pH 7.0 (5.0-9.0) Ur Specific [place] 1.011 (1.001-1.035) Urine Protein Negative (Negative) mg/dL Urine Glucose (UA) Negative (Negative) mg/dL Urine Ketones Negative (Negative) mg/dL Ur Blood (Man) Negative (Negative) Urine Nitrate Negative (Negative) Urine Bilirubin Negative (Negative) Urine Urobilinogen 0.2 (<2.0) mg/dL Leukocyte Esterase Rfl Negative (Negative) YASMANY/UL 05/21/25 Range/Units 08:42 WBC (4.5-10.0) K/mm3 RBC (4.6-6.20) M/mm3 Hgb (14.0-18.0) g/dL Hct (42.0-52.0) % MCV (80-100) fl MCH (26-34) pg MCHC (32-36) g/dl RDW (11.5-14.5) % Plt Count (150-375) k/mm3 MPV (7.4-10.4) fl Immature Gran % (Auto) (0-0.5) % Neut % (Auto) (45.5-73.1) % Lymph % (Auto) (18.3-44.2) % Emmons % (Auto) (2.6-8.5) % Eos % (Auto) (0-4.4) % Baso % (Auto) (0.2-1.2) % Lymph # (Auto) (0.9-3.2) K/mm3 Emmons # (Auto) (0.1-0.6) K/mm3 Eos # (Auto) (0-0.3) K/mm3 Baso # (Auto) (0.0-0.1) K/mm3 Abs Immat Gran (auto) (0.00-0.031) K/mm3 Absolute Neuts (auto) (1.3-6.7) K/mm3 Absolute Nucleated RBC (0.0-0.012) K/mm3 Nucleated RBC % (0.0-0.2) % PT (11.1-14.7) Seconds INR APTT (22.3-36.8) Seconds Sodium (137-145) mmol/L Potassium (3.4-5.0) mmol/L Chloride (98-107) mmol/L Carbon Dioxide (22-30) mmol/L Anion Gap (4-12) mmol/L BUN (9-20) mg/dL Creatinine (0.7-1.3) mg/dL Estim Creat Clear Calc Estimated GFR (59 - ) Glucose (65-110) mg/dL Calcium (8.4-10.2) mg/dL Total Bilirubin (0.2-1.3) mg/dL AST (17-59) U/L ALT (6-50) U/L Alkaline Phosphatase (38-126) U/L Troponin I < 0.012 (0.000-0.034) ng/mL Total Protein (6.3-8.2) g/dL Albumin (3.5-5.1) g/dL Lipase (23-300) U/L Urine Color (Yellow) Urine Appearance (Clear) Urine pH (5.0-9.0) Ur Specific [place] (1.001-1.035) Urine Protein (Negative) mg/dL Urine Glucose (UA) (Negative) mg/dL Urine Ketones (Negative) mg/dL Ur Blood (Man) (Negative) Urine Nitrate (Negative) Urine Bilirubin (Negative) Urine Urobilinogen (<2.0) mg/dL Leukocyte Esterase Rfl (Negative) YASMANY/UL <Nghia Weber MD - Last Filed: 05/21/25 06:26> Lab Results 05/21/25 05/21/25 05/21/25 Range/Units 05:53 05:53 05:54 WBC 6.6 (4.5-10.0) K/mm3 RBC 4.85 (4.6-6.20) M/mm3 Hgb 15.3 (14.0-18.0) g/dL Hct 47.6 (42.0-52.0) % MCV 98.1 (80-100) fl MCH 31.5 (26-34) pg MCHC 32.1 (32-36) g/dl RDW 13.4 (11.5-14.5) % Plt Count 209 (150-375) k/mm3 MPV 9.8 (7.4-10.4) fl Immature Gran % (Auto) 0.5 (0-0.5) % Neut % (Auto) 57.1 (45.5-73.1) % Lymph % (Auto) 31.9 (18.3-44.2) % Emmons % (Auto) 8.9 H (2.6-8.5) % Eos % (Auto) 1.1 (0-4.4) % Baso % (Auto) 0.5 (0.2-1.2) % Lymph # (Auto) 2.11 (0.9-3.2) K/mm3 Emmons # (Auto) 0.6 (0.1-0.6) K/mm3 Eos # (Auto) 0.1 (0-0.3) K/mm3 Baso # (Auto) 0.0 (0.0-0.1) K/mm3 Abs Immat Gran (auto) 0.03 (0.00-0.031) K/mm3 Absolute Neuts (auto) 3.8 (1.3-6.7) K/mm3 Absolute Nucleated RBC 0.000 (0.0-0.012) K/mm3 Nucleated RBC % 0.0 (0.0-0.2) % PT 12.8 (11.1-14.7) Seconds INR 0.9 APTT 28.2 (22.3-36.8) Seconds Sodium 140 (137-145) mmol/L Potassium 4.1 (3.4-5.0) mmol/L Chloride 106 (98-107) mmol/L Carbon Dioxide 26 (22-30) mmol/L Anion Gap 8 (4-12) mmol/L BUN 16 (9-20) mg/dL Creatinine 0.74 (0.7-1.3) mg/dL Estim Creat Clear Calc Not Reportable Estimated GFR > 60 (59 - ) Glucose 125 H (65-110) mg/dL Calcium 9.5 (8.4-10.2) mg/dL Total Bilirubin 1.1 (0.2-1.3) mg/dL AST 49 (17-59) U/L ALT 54 H (6-50) U/L Alkaline Phosphatase 113 (38-126) U/L Troponin I < 0.012 Cancelled (0.000-0.034) ng/mL Total Protein 8.0 (6.3-8.2) g/dL Albumin 4.7 (3.5-5.1) g/dL Lipase 80 (23-300) U/L Urine Color Yellow (Yellow) Urine Appearance Clear (Clear) Urine pH 7.0 (5.0-9.0) Ur Specific [place] 1.011 (1.001-1.035) Urine Protein Negative (Negative) mg/dL Urine Glucose (UA) Negative (Negative) mg/dL Urine Ketones Negative (Negative) mg/dL Ur Blood (Man) Negative (Negative) Urine Nitrate Negative (Negative) Urine Bilirubin Negative (Negative) Urine Urobilinogen 0.2 (<2.0) mg/dL Leukocyte Esterase Rfl Negative (Negative) YASMANY/UL 05/21/25 Range/Units 08:42 WBC (4.5-10.0) K/mm3 RBC (4.6-6.20) M/mm3 Hgb (14.0-18.0) g/dL Hct (42.0-52.0) % MCV (80-100) fl MCH (26-34) pg MCHC (32-36) g/dl RDW (11.5-14.5) % Plt Count (150-375) k/mm3 MPV (7.4-10.4) fl Immature Gran % (Auto) (0-0.5) % Neut % (Auto) (45.5-73.1) % Lymph % (Auto) (18.3-44.2) % Emmons % (Auto) (2.6-8.5) % Eos % (Auto) (0-4.4) % Baso % (Auto) (0.2-1.2) % Lymph # (Auto) (0.9-3.2) K/mm3 Emmons # (Auto) (0.1-0.6) K/mm3 Eos # (Auto) (0-0.3) K/mm3 Baso # (Auto) (0.0-0.1) K/mm3 Abs Immat Gran (auto) (0.00-0.031) K/mm3 Absolute Neuts (auto) (1.3-6.7) K/mm3 Absolute Nucleated RBC (0.0-0.012) K/mm3 Nucleated RBC % (0.0-0.2) % PT (11.1-14.7) Seconds INR APTT (22.3-36.8) Seconds Sodium (137-145) mmol/L Potassium (3.4-5.0) mmol/L Chloride (98-107) mmol/L Carbon Dioxide (22-30) mmol/L Anion Gap (4-12) mmol/L BUN (9-20) mg/dL Creatinine (0.7-1.3) mg/dL Estim Creat Clear Calc Estimated GFR (59 - ) Glucose (65-110) mg/dL Calcium (8.4-10.2) mg/dL Total Bilirubin (0.2-1.3) mg/dL AST (17-59) U/L ALT (6-50) U/L Alkaline Phosphatase (38-126) U/L Troponin I < 0.012 (0.000-0.034) ng/mL Total Protein (6.3-8.2) g/dL Albumin (3.5-5.1) g/dL Lipase (23-300) U/L Urine Color (Yellow) Urine Appearance (Clear) Urine pH (5.0-9.0) Ur Specific [place] (1.001-1.035) Urine Protein (Negative) mg/dL Urine Glucose (UA) (Negative) mg/dL Urine Ketones (Negative) mg/dL Ur Blood (Man) (Negative) Urine Nitrate (Negative) Urine Bilirubin (Negative) Urine Urobilinogen (<2.0) mg/dL Leukocyte Esterase Rfl (Negative) YASMANY/UL <Ariana Burr MD - Last Filed: 05/21/25 09:42> Discharge Plan Discharge Clinical Impression: Weakness, Hypertension <Nghia Weber MD - Last Filed: 05/21/25 06:26> Patient Disposition: Home <Nghia Weber MD - Last Filed: 05/21/25 06:26> Condition: Stable <Nghia Weber MD - Last Filed: 05/21/25 06:26> Instructions: Antibiotic Form, Chronic Hypertension (DC), Weakness (ED) <Nghia Weber MD - Last Filed: 05/21/25 06:26> Additional Instructions: You were seen in the emergency department for a brief episode weakness. Your workup here was reassuring. Please follow-up with your primary care physician for further management. Keep a log of your blood pressure at home but continue taking your meds as prescribed in the interim. If you develop any new or worsening symptoms return the ED for evaluation. You can reestablish with your previous spinner hand or if you are in need of the name of a referral/contact information for another is provided below. <Nghia Weber MD - Last Filed: 05/21/25 06:26> Patient Language: [place] <Nghia Weber MD - Last Filed: 05/21/25 06:26> Prescriptions: No Action valsartan 80 mg tablet 80 mg PO DAILY cyclobenzaprine 10 mg tablet 10 mg PO TID PRN (Reason: muscle spasm) Qty: 20 0RF aspirin 81 mg Tablet,Chewable 81 mg PO DAILY famotidine 40 mg tablet 1 tablet PO DAILY metoprolol succinate 25 mg tablet extended release 24 hr PO doxycycline hyclate 100 mg capsule albuterol sulfate 90 mcg/actuation HFA aerosol inhaler INHALATION ondansetron 4 mg tablet,disintegrating 4 mg PO Q8H PRN (Reason: nausea and vomiting) Qty: 14 0RF tamsulosin [Flomax] 0.4 mg capsule 0.4 mg PO DAILY 14 Days Qty: 14 0RF hydrocodone-acetaminophen 5-325 mg tablet 1 tablet PO Q12H PRN (Reason: pain) Qty: 14 0RF <Nghia Weber MD - Last Filed: 05/21/25 06:26> Follow-up/Referrals: Balwinder,Abdoulaye G., PA-C [Primary Care Provider] Valerio Heaton MD [Physician, Cardiology] <Nghia Weber MD - Last Filed: 05/21/25 06:26> Time of Disposition: 09:42 <Nghia Weber MD - Last Filed: 05/21/25 06:26> 09:42 <Ariana Burr MD - Last Filed: 05/21/25 09:42>
[2025-05-21] MEDS: MAG HYDROX/AL HYDROX/SIMETH 30 ML UDC PO (05:54)
[2025-05-21 06:06] LABS: Hematocrit 47.6 % (42.0-52.0); Hemoglobin 15.3 g/dL (14.0-18.0); Immature Granulocyte Percent A 0.5 % (0-0.5); Lymphocytes Absolute Auto 2.11 K/mm3 (0.9-3.2); Mean Corpuscular HGB Conc 32.1 g/dl (32-36); Mean Corpuscular Hemoglobin 31.5 pg (26-34); Mean Corpuscular Volume 98.1 fl (80-100); Nucleated Red Blood Cells Absolute Auto 0.000 K/mm3 (0.0-0.012); Nucleated Red Blood Cells Perc 0.0 % (0.0-0.2); Platelet Count Result 209 k/mm3 (150-375); Red Blood Count 4.85 M/mm3 (4.6-6.20); White Blood Count 6.6 K/mm3 (4.5-10.0)
[2025-05-21 06:09] LABS: Add Urine Microscopic? NO; Appearance Urine Clear (Clear); Glucose Urine UA Negative (Negative); Leukocyte Esterase Ur Negative LEU/UL (Negative); Nitrate Urine Negative (Negative); Specific Grav Ur 1.011 (1.001-1.035)
[2025-05-21 06:17] LABS: Alanine Aminotransferase 54 U/L (6-50); Albumin Level 4.7 g/dL (3.5-5.1); Alkaline Phosphatase 113 U/L (38-126); Anion Gap 8 mmol/L (4-12); Aspartate Amino Transferase 49 U/L (17-59); Bilirubin,Total 1.1 mg/dL (0.2-1.3); Blood Urea Nitrogen 16 mg/dL (9-20); Calcium 9.5 mg/dL (8.4-10.2); Carbon Dioxide 26 mmol/L (22-30); Chloride 106 mmol/L (98-107); Estimated Glomerular Filt Rate > 60; Glucose 125 mg/dL (65-110); INR 0.9; Lipase 80 U/L (23-300); Potassium 4.1 mmol/L (3.4-5.0); Prothrombin Time 12.8 Seconds (11.1-14.7); Sodium 140 mmol/L (137-145); Total Protein 8.0 g/dL (6.3-8.2)
[2025-05-21 06:18] LABS: Partial Thromboplastin Time 28.2 Seconds (22.3-36.8)
[2025-05-21 06:29] LABS: Troponin I < 0.012 ng/mL (0.000-0.034)
[2025-05-21 09:20] LABS: Troponin I < 0.012 ng/mL (0.000-0.034)
== END 2025-05-21 10:44 | disposition home or self-care (01) ==
PROVIDERS: Emergency Medicine; Emergency Provider Student in an Organized Health Care Education/Training Program; PCP Physician Assistant
DX: R53.1 Weakness (principal); I10 Essential (primary) hypertension; E11.9 Type 2 diabetes mellitus without complications; E78.00 Pure hypercholesterolemia, unspecified; K21.9 Gastro-esophageal reflux disease without esophagitis; F41.9 Anxiety disorder, unspecified; Z79.82 Long term (current) use of aspirin; Z79.899 Other long term (current) drug therapy; I45.9 Conduction disorder, unspecified; R94.31 Abnormal electrocardiogram [ECG] [EKG]
CPT/HCPCS: 36415; 71045; 80053; 81003; 83690; 84484; 85025; 85610; 85730; 93005; 99284; A9270